=== PATIENT | male | born 1945 | race Caucasian/White ===

== ENCOUNTER 2017-08-15 13:06 | Inpatient (IN) | payer OTHER, MEDICARE ==
[~2017-08-15] VITALS: Ht 177.8 cm; Wt 79.4 kg
[~2017-08-15 13:06] MED LIST: ATACAND16 M1 PO; DOCUSATE SODIU100 M3 PO; MIRALAX119 GM PO; NEURONTIN800 M2 PO; OXYCODONE HCL5 M1 PO; OXYCONTIN10 M1 PO; PROCHLORPERAZIN10 MG PO; TAMIFLU75 M1 PO; ZITHROMAX250 M2 PO; ZYTIGA500 MG PO
[2017-08-15] MEDS ORDERED: ALLEGRA ALLERG180 M1 PO (13:19)
[2017-08-15] MEDS ORDERED: MULTIVITAMINS1 EAC9 PO (13:21)
[2017-08-15] MEDS ORDERED: MELATONIN3 M4 PO (13:22)
[2017-08-15] MEDS ORDERED: FISH OIL 1,2001 EACH PO (13:22)
[2017-08-15] MEDS ORDERED: OXYCODONE HCL5 M2 PO (13:24)
[2017-08-15] MEDS ORDERED: OXYCONTIN10 M1 PO (13:24)
[2017-08-15] MEDS ORDERED: ADVIL200 M1 PO (13:24)
[2017-08-15] MEDS ORDERED: ESCITALOPRAM OX10 MG PO (13:25)
[2017-08-15] MEDS ORDERED: PREDNISONE5 M1 PO (13:25)
--- NOTE | 2017-08-15 13:40 | ED GENERAL ADULT ---
See Addendum History of Present Illness General Chief Complaint: General Adult Stated Complaint: N/V Source: patient, family (daughter), old records, EMS Exam Limitations: no limitations Vital Signs & Intake/Output Vital Signs & Intake/Output Vital Signs Date Time Temp Pulse Resp B/P B/P Pulse O2 O2 Flow FiO2 Mean Ox Delivery Rate 08/15 1648 98.6 94 18 119/58 95 Nasal 2.0L Cannula 08/15 1603 100.4 08/15 1444 100.1 08/15 1310 100.1 101 17 172/79 96 Room Air Allergies Coded Allergies: Penicillins (UNKNOWN PER PT DAUGHTER 08/15/17) Reconcile Medications Abiraterone Acetate (Zytiga) 500 MG TABLET 1,000 MG PO QAM CANCER TREATMENT ( Reported) Candesartan Cilexetil (Atacand) 16 MG TABLET 1 TAB PO DAILY HTN (Reported) Escitalopram Oxalate 10 MG TABLET 1 TAB PO DAILY MENTAL HEALTH (Reported) Fexofenadine HCl (Mariam Allergy) 180 MG TABLET 1 TAB PO PRN ALLERGIES ( Reported) Fish Oil/Dha/Epa (Fish Oil 1,200 MG Fish Oil) 1,200 MG-144 MG-216 MG CAPSULE 1 CAP PO DAILY SUPPLEMENT (Reported) Gabapentin (Neurontin) 800 MG TABLET 1 TAB PO TID Neuropathy (Reported) Ibuprofen (Advil) 200 MG CAPSULE 2-4 CAP PO PRN PAIN (Reported) Melatonin 3 MG TABLET 1 TAB PO QPM SUPPLEMENT (Reported) Multiple Vitamin (Multivitamins) 1 EACH TABLET 1 TAB PO DAILY SUPPLEMENT ( Reported) Oxycodone HCl 5 MG CAPSULE 1-2 CAP PO Q4H PRN PAIN (Reported) Oxycodone HCl (Oxycontin) 10 MG TAB.ER.12H 1 TAB PO BID PAIN (Reported) Prednisone 5 MG TABLET 1 TAB PO BID STEROID (Reported) Triage Note: PT TO ED BY AMBULANCE WITH C/O INCREASING GEN WEAKNESS, N/V OVER THE PAST COUPLE DAYS. HX PROSTATE CA WITH METS TO THE BONES Triage Nurses Notes Reviewed? yes Onset: Abrupt Duration: day(s): (2-3), constant, continues in ED, getting worse Timing: single episode today Injury Environment: home Severity: moderate, severe Severity Numbers: 9 No Modifying Factors: none HPI: 72-year-old male past medical history of prostate cancer with metastasis to the bones, hypertension presents for evaluation of worsening generalized weakness hip pain and fever. Daughter reports symptoms have been gradually worsening over the past 3 days. Patient is usually able to walk and hold a conversation but over the past few hours has not been able to walk or get up due to pain in his bilateral hips and weakness and confusion. Daughter also reports that he has been very weak and lethargic falling asleep having conversations. Patient currently is only reporting pain in his bilateral hips. No trauma no recent falls he does have a history of metastasis to the bones in this area. No coughing congestion and rhinorrhea. Patient arrives via EMS on 2 L nasal cannula due to hypoxia. He has no history of lung disease. He denies shortness of breath or chest pain. Patient's daughter notes that patient had a blood transfusion 9 days ago and had a similar reaction to previous transfusions delayed several days after. (Howard Salvador) Past History Medical History Any Pertinent Medical History? see below for history Neurological: peripheral neuropathy EENT: NONE Cardiovascular: hypertension Respiratory: NONE Gastrointestinal: NONE Hepatic: NONE Renal: NONE Musculoskeletal: NONE Psychiatric: insomnia Endocrine: NONE Cancer(s): prostate cancer, metastatic bone ca History of MRSA: No History of VRE: No History of CDIFF: No Tetanus Vaccine: 05/05/13 Surgical History Surgical History: non-contributory Psychosocial History What is your primary language Amharic Family History Hx Contributory? No (Howard Salvador) Review of Systems Review of Systems Constitutional: Denies: fever, malaise, weakness. EENTM: Reports: no symptoms. Respiratory: Reports: no symptoms. Cardiovascular: Reports: no symptoms. GI: Denies: see HPI, abdominal pain, distention. Genitourinary: Reports: no symptoms. Musculoskeletal: Reports: see HPI, joint pain, muscle pain, muscle stiffness. Skin: Reports: no symptoms. Neurological/Psychological: Reports: weakness. Hematologic/Endocrine: Reports: no symptoms. Immunologic/Allergic: Reports: no symptoms. All Other Systems: Reviewed and Negative (Howard Salvador) Physical Exam Physical Exam General Appearance: well developed/nourished, no apparent distress, alert, awake , lethargic Head: atraumatic, normal appearance Eyes: Bilateral: normal appearance, PERRL, EOMI. Ears, Nose, Throat: normal pharynx, normal ENT inspection, hearing grossly normal Neck: normal inspection, supple, full range of motion Respiratory: chest non-tender, no respiratory distress, quiet respiration, decreased breath sounds Cardiovascular: regular rate/rhythm, normal peripheral pulses Peripheral Pulses: 2+ radial (R), 2+ radial (L) Gastrointestinal: normal bowel sounds, soft, no organomegaly, distention, tenderness (DIFFUSE ) Back: normal inspection, normal range of motion, no vertebral tenderness Extremities: normal inspection, no edema, limited range of motion (BILATERAL HIPS ), RANGE OF MOTION OF THE BILATERAL HIPS IS REDUCED SECONDARY TO PAIN. nO JOINT SWELLING NO ERYTHEMA OR ABRASIONS., NEUROVASCULAR SUPPLY IS INTACT THE BILATERAL UPPER AND LOWER EXTREMITIES Neurologic/Psych: no motor/sensory deficits, awake, alert, oriented x 3 Skin: intact, normal color, warm/dry Core Measures ACS in differential dx? No CVA/TIA Diagnosis: No Sepsis Present: No Sepsis Focused Exam Completed? No (Danny CRAVEN,Howard) Progress Differential Diagnoses I considered the following diagnoses in my evaluation of the patient: [Sepsis, pneumonia, PE, acute coronary syndrome, UTI, SBO, metastatic disease, spontaneous bacterial peritonitis, empyema, influenza, transfusion reaction, transfusion associated lung disease] Plan of Care: Orders Procedure Date/time Status Heart Healthy Diet 08/16 B Active Patient Data 08/15 1736 Active ED Holding Orders 08/15 1733 Active Admit to inpatient 08/15 1733 Active Vital Signs 08/15 1733 Active Code Status 08/15 1733 Active Add-on Test (ER Only) 08/15 1640 Active Add-on Test (ER Only) 08/15 1536 Active LDH (LACT ACID DEHYDROGENASE) 08/15 1330 Active B-TYPE NATRIURETIC PEP (BNP) 08/15 1330 Active BLOOD CULTURE 08/15 1328 Active Add-on Test (ER Only) 08/15 1324 Active RAPID VIRAL INFLUENZA A 08/15 1320 Complete EKG 08/15 1320 Active URINALYSIS 08/15 1319 Complete TROPONIN LEVEL 08/15 1319 Active LIPASE 08/15 1319 Active LACTIC ACID 08/15 1319 Active D-DIMER 08/15 1319 Complete COMPREHENSIVE METABOLIC PANEL 08/15 1319 Active CBC WITHOUT DIFFERENTIAL 08/15 1319 Complete Laboratory Tests 08/15/17 1524: Urinalysis MOD H, Urine Color YEL, Urine Clarity CLEAR, Urine pH 6.5, Ur Specific [place] 1.020, Urine Protein 30 H, Urine Ketones NEG, Urine Nitrite NEG, Urine Bilirubin NEG, Urine Urobilinogen 1.0, Ur Leukocyte Esterase NEG, Ur Microscopic SEDIMENT EXAMINED, Urine RBC RARE, Urine WBC RARE, Ur Epithelial Cells RARE, Urine Mucus FEW, Urine Hemoglobin NEG, Urine Glucose NEG 08/15/17 1330: Anion Gap 9, Estimated GFR > 60, BUN/Creatinine Ratio 28.0 H, Glucose 121 H, Lactic Acid 2.0, Calcium 8.7, Total Bilirubin 1.4 H, AST 513 H, ALT 34, Alkaline Phosphatase 1475 H, Lactate Dehydrogenase Pending, Troponin I < 0.01, [place] Pept 677 H, Total Protein 6.1 L, Albumin 3.5, Globulin 2.6, Albumin/Globulin Ratio 1.3, Lipase 87, D-Dimer High Sensitivty 8633 H, CBC w Diff NO MAN DIFF REQ, RBC 3.03 L, MCV 93.0, MCH 31.0, MCHC 33.4, RDW 21.7 H, MPV 6.4 L, Gran % 67.1, Lymphocytes % 19.2 L, Monocytes % 12.4 H, Eosinophils % 0.9, Basophils % 0.4, Absolute Granulocytes 3.9, Absolute Lymphocytes 1.1 L, Absolute Monocytes 0.7 H, Absolute Eosinophils 0.1, Absolute Basophils 0 Microbiology 08/15 1340 BLOOD: Blood Culture - RECD 08/15 1329 NASOPHARYN: Influenza Virus A & B Rapid Smear - COMP 08/15 1329 BLOOD: Blood Culture - RECD Patient seen and evaluated. He has a history of prostate cancer with metastatic disease to the bones. He is coming in with weakness and lethargy and fever. On exam vital signs are stable however patient is requiring 2 L nasal cannula to maintain an oxygen saturation in the 90s. No history of previous lung disease. PE needs to be considered as well as TIA versus progression of cancer versus transfusion reaction. We'll check basic blood work including blood cultures EKG chest x-ray. Patient will be medicated with IV fluids and IV Tylenol. Dimer is significantly elevated to 8000. A CTA of the chest was ordered. Also check a CT scan of the abdomen and pelvis and a dry scan of the head. CT scan does not show any acute findings. It does appear to be progression of metastatic disease to the bones. No blood clots. Patient does seem to be feeling better after fluids and Tylenol. Patient is unable to walk currently due to weakness AND HIP PAIN. He'll be admitted to the hospital for further evaluation and to rule out TIA. He WILL REQUIRE MRI of the brain, echocardiogram, carotid Dopplers, oncology consult, IV pain control, PHYSICAL therapy, hospice consult, case management. Case discussed with Dr. Mcclelland he agrees. Diagnostic Imaging: Viewed by Me: Radiology Read, CT Scan. Discussed w/RAD: Radiology Read, CT Scan. Radiology Impression: PATIENT: CHIP NICE PRESENT AGE: 72 PATIENT ACCOUNT NO: [id number] : 46 LOCATION: [facility] ORDERING PHYSICIAN: Howard CRAVEN SERVICE DATE: 08/15/17 EXAM TYPE: CAT - CT HEAD WO IV CONTRAST EXAMINATION: CT HEAD WITHOUT CONTRAST CLINICAL INFORMATION: 72-year-old man with confusion and weakness. Known osseous metastases from prostate cancer. COMPARISON: 04/21/2017 bone scan TECHNIQUE: Contiguous axial imaging was performed from the skull base to vertex without intravenous administration of contrast. DLP: 702 mGy-cm FINDINGS: No intracranial mass, hemorrhage, midline shift, or extra-axial collection is appreciated. The ventricles and sulcal spaces are diffusely prominent due to chronic volume loss. The paranasal sinuses are well aerated. No discrete lytic lesions are identified to correlate with known calvarial metastases. IMPRESSION: No acute intracranial pathology. DICTATED BY: Galina Cat MD DATE/TIME DICTATED: 08/15/171549 RECORD TESTER:LUÍS DATE/TIME TRANSCRIBED:08/15/171549 CONFIDENTIAL, DO NOT COPY WITHOUT APPROPRIATE AUTHORIZATION. <Electronically signed in Other Vendor System> SIGNED BY: Galina Cat MD 08/15/17 155, PATIENT: CHIP NICE PRESENT AGE: 72 PATIENT ACCOUNT NO: [id number] : 46 LOCATION: [facility] ORDERING PHYSICIAN: Howard CRAVEN SERVICE DATE: 08/15/17 EXAM TYPE: CAT - CTA CHEST-PULMONARY EMBOLISM EXAMINATION: CT CHEST PE STUDY CLINICAL INFORMATION: Hypoxia. Weakness. Acute mental status changes. Evaluate for pulmonary embolism versus pneumonia. COMPARISON: CTA of the chest dated 07/06/2017. CTA of the chest dated 04/21/2017 , 01/04/2017. TECHNIQUE: Prior to contrast administration, localization images were obtained. After the administration of 95 mL of intravenous Optiray 320, multidetector CT volume acquisition of the chest was performed. 3-D postprocessing was performed with multiplanar reconstructions and MIP images obtained at the acquisition workstation under concurrent physician supervision. DLP: 1170.93 mGy-cm (this dose report includes CT scan of the abdomen and pelvis ). FINDINGS: Pulmonary arteries: The bolus timing on this study was acceptable for visualization of the pulmonary arterial tree. Evaluation is, however, limited due to stairstep artifact and beam hardening artifact throughout the pulmonary vessels related to the patient's arms. There are no definite intraluminal pulmonary arterial filling defects present to suggest pulmonary embolism in the main pulmonary artery, right and left main pulmonary artery, lobar and segmental branches. Lungs: Platelike atelectatic changes are seen in the left lower lobe, superior segment. Dependent atelectatic changes as seen in both lower lobes and in the dependent portion of the right upper lobe. There is a 4 mm solid noncalcified pulmonary nodule in the right upper lobe (series 2, image 131), unchanged dating back to 01/04/2017. No other significant pulmonary nodule or mass is seen. No pleural effusion or pneumothorax. The central airways are patent. Aorta and heart: The heart is normal in size. Ascending aortic aneurysm is again seen with maximal AP diameter of 4.5 cm at the level of the right main pulmonary artery, similar to the previous studies. Moderate coronary artery calcifications noted. There is no pericardial effusion Lymphatic structures: Multiple enlarged mediastinal lymph nodes are again seen, measuring up to 1.4 cm in the right upper paratracheal space, 1.7 cm in the right lower paratracheal space, and 1.7 cm in the subcarinal space. Similar findings were noted on the previous CT scan from 07/06/2017. On older CT scan from 01/04/2017, larger adenopathy was noted. There are also several bilateral hilar lymph nodes, measuring up to 0.9 cm in short axis, unchanged from most recent prior but decreased in size compared to 2017. No axillary adenopathy is seen. Upper abdomen: Please refer to separate CT scan of the abdomen and pelvis report. Bones: Diffuse sclerotic densities are seen throughout the axial and appendicular skeleton including the ribs and shoulders, progressive when compared to original exam from 01/04/2017 but unchanged compared to 07/06/2017. Superimposed degenerative disc disease and spurring is noted. No pathologic fracture seen. IMPRESSION: 1. No evidence of pulmonary embolism. 2. Scattered atelectatic changes in the lungs. 3. Stable 4 mm solid noncalcified nodule in the right upper lobe, unchanged from 01/04/2017, most consistent with a benign finding. Depending on patient's underlying risk factors, additional CT scan in 12 months can be performed for reassessment. 4. Ascending aortic aneurysm with maximal AP diameter of 4.5 cm. 5. Mediastinal adenopathy, unchanged from 2017 and decreased in prominence compared to 01/04/2017. Findings are of uncertain etiology and differential would include metastatic disease, lymphoproliferative disorder, and inflammatory disease. Close clinical correlation is requested. 6. Diffuse metastatic disease to the bony skeleton, consistent with metastatic prostate cancer. 7. Moderate coronary artery calcifications. DICTATED BY: Trudy Sales MD DATE/TIME DICTATED:08/15/171544 RECORD TESTER:LUÍS DATE/TIME TRANSCRIBED:08/15/171544 CONFIDENTIAL, DO NOT COPY WITHOUT APPROPRIATE AUTHORIZATION., PATIENT: CHIP NICE PRESENT AGE: 72 PATIENT ACCOUNT NO: [id number] : 46 LOCATION: [facility] ORDERING PHYSICIAN: Howard CRAVEN SERVICE DATE: 08/15/17 EXAM TYPE: CAT - CT ABD & PELVIS W IV CONTRAST EXAMINATION: CT ABDOMEN AND PELVIS WITH CONTRAST CLINICAL INFORMATION: Abdominal pain and distention. Fever. Presumptive diagnosis of worsening bone metastases, pathologic fracture, small bowel obstruction. COMPARISON: CT scan of the abdomen and pelvis dated 05/03/2017, 04/21/2017, and multiple older exams dating back to 05/29/2009. TECHNIQUE: Multidetector CT volumetric acquisition of the abdomen and pelvis was performed after the administration of 95 mL of intravenous Optiray 320. The data set was reformatted in the sagittal and coronal planes and reviewed on an independent workstation. DLP: 1170.93 mGy-cm (this dose report includes CTA of the chest). FINDINGS: LOWER CHEST: Please refer to separate CTA of the chest dictation. Atelectatic changes are seen in the lung bases bilaterally. Trace left-sided pleural effusion is seen. LIVER, GALLBLADDER, BILIARY TREE: Liver normal size and attenuation. No focal cystic or solid mass or intra-or extrahepatic ductal dilatation. Hepatic and portal veins patent. Gallbladder partially distended and within normal limits. PANCREAS: Diffusely mildly atrophic. No ductal dilatation, mass, or surrounding stranding. SPLEEN: Normal size and appearance. Splenic vein patent. ADRENAL GLANDS AND KIDNEYS: Adrenal glands normal. Kidneys bilaterally symmetric in size and function. No hydronephrosis, nephrolithiasis or perinephric stranding. Multiple bilateral renal masses are seen of varying sizes, consistent with cysts, similar to prior exams. No suspicious renal masses. URETERS AND BLADDER: Ureters decompressed and within normal limits. Bladder well distended and within normal limits. PELVIC ORGANS: The patient is status post prostatectomy. There is a coarse calcific density seen in the left side of the prostatectomy bed, unchanged dating back to 08/12/2016, possibly representing heterotopic calcification status post surgery. GASTROINTESTINAL TRACT: Normal. Small and large bowel loops decompressed. No evidence of bowel obstruction is seen Appendix in right lower quadrant normal. ABDOMINAL WALL: Small bilateral fat-containing direct inguinal hernias are seen. LYMPHOVASCULAR STRUCTURES: Abdominal aorta normal in caliber. No periaortic collections. Mild atherosclerotic calcifications of the abdominal aorta. No abdominal or pelvic adenopathy or free fluid collection. BONES: Diffuse sclerotic densities are seen throughout the lumbar spine and pelvis, progressive when compared to 04/21/2017, consistent with progressive metastatic disease. No compression deformity or acute fracture is seen. Multilevel moderate degenerative disc disease and facet arthropathy is seen throughout the lumbar spine. IMPRESSION: 1. No acute intra-abdominal or pelvic process seen. Specifically, no evidence of bowel obstruction is noted. 2. Diffuse sclerotic densities throughout the lumbar spine and pelvis, progressive when compared to 04/21/2017, consistent with progressive metastatic prostate cancer. No acute pathologic fracture is seen. 3. Other incidental findings include diffusely mildly atrophic pancreas, bilateral renal cysts, and small bilateral fat- containing direct inguinal hernias. DICTATED BY: Trudy Sales MD DATE/TIME DICTATED:08/15/171619 RECORD TESTER:LUÍS DATE/TIME TRANSCRIBED:1619 CXR Impression: PATIENT: CHIP NICE PRESENT AGE: 72 PATIENT ACCOUNT NO: [id number] : 46 LOCATION: [facility] ORDERING PHYSICIAN: Howard CRAVEN SERVICE DATE: 08/15/170182 EXAM TYPE: RAD - XRY-PORTABLE CHEST XRAY EXAMINATION: XR PORTABLE CHEST CLINICAL INFORMATION: Fever. Hypoxia. Acute mental status change. Presumptive diagnosis of pneumonia or CHF. COMPARISON: CTA of the chest dated 07/06/2017 chest x-ray dated 06/11/2011. TECHNIQUE: Portable AP semierect view of the chest was obtained. FINDINGS: The cardiomediastinal silhouette is within normal limits in size. Low lung volumes are seen with mild crowding of bronchovascular markings in the lung bases bilaterally. No focal consolidation, effusion or pneumothorax is seen. Degenerative changes as seen in the left glenohumeral joint. IMPRESSION: Low lung volumes with bibasilar crowding of bronchovascular lung markings. No focal consolidation or evidence of pulmonary edema. DICTATED BY: Trudy Sales MD DATE/TIME DICTATED:08/15/171499 RECORD TESTER:LUÍS DATE/TIME TRANSCRIBED:08/15/171499 CONFIDENTIAL, DO NOT COPY WITHOUT APPROPRIATE AUTHORIZATION. Initial ED EKG: normal sinus rhythm, no ST T wave changes Prior EKG: unchanged (Howard Salvador) Departure Departure Disposition: STILL A PATIENT Condition: Stable Clinical Impression Primary Impression: Prostate cancer metastatic to bone Secondary Impressions: TIA (transient ischemic attack) Qualifiers: Transient cerebral ischemia type: unspecified Qualified Code: G45.9 - Transient cerebral ischemic attack, unspecified Referrals: Raleigh STERN,Qamar Alvarado (PCP/Family) Departure Forms: Customer Survey General Discharge Information Admission Note Spoke With: Patricia STERN,[employer] Documentation of Exam: Documentation of any treatments & extenuating circumstances including Concerns Regarding Discharge (functional status, medication knowledge or non-compliance, living conditions, etc.) that warrant an admission rather than observation: [MRI of the brain, echocardiogram, carotid Dopplers, oncology consult, IV pain control, PHYSICAL therapy, hospice consult, case management] (Howard Salvador) PA/[employer]ER Co-Sign Statement Statement: ED Attending supervision documentation- [X] I saw and evaluated the patient. I have also reviewed all the pertinent lab results and diagnostic results. I agree with the findings and the plan of care as documented in the PA's/[employer]W T[employer]ER's documentation. [] I have reviewed the ED Record and agree with the PA's/[employer]ER's documentation. [] Additions or exceptions (if any) to the PAs/[employer] T[employer]ER's note and plan are summarized below: [] I've seen and examined the patient. He has progressive metastatic prostate CA. Now is having inability to ambulate. Status post altered mental status today. This has since improved but rasied concern for TIA. (Dayron PEREZ,Lino Faustin) Critical Care Note Critical Care Note Critical Care Time: non-applicable (Danny CRAVEN,Howrad)
[2017-08-15 13:46] LABS: ABSOLUTE BASOPHIL COUNT 0 /CUMM (0.0-0.2); ABSOLUTE EOSINOPHIL COUNT 0.1 /CUMM (0.0-0.7); ABSOLUTE GRANULOCYTE CT 3.9 /CUMM (1.4-6.5); ABSOLUTE LYMPH COUNT 1.1 /CUMM (1.2-3.4); ABSOLUTE MONOCYTE COUNT 0.7 /CUMM (0.10-0.60); BASOPHIL % 0.4 % (0.0-2.0); EOSINOPHIL % 0.9 % (0-5); GRANULOCYTE % 67.1 % (42.2-75.2); HEMATOCRIT 28.2 % (42-52); MEAN CORPUSCULAR HGB CONC 33.4 G/DL (33.0-37.0); MEAN PLATELET VOLUME 6.4 FL (7.4-10.4); PLATELET COUNT 173 /CUMM (130-400); RBC DISTRIBUTION WIDTH 21.7 % (11.5-14.5); RED BLOOD CELL CT 3.03 /CUMM (4.70-6.10); WHITE BLOOD CELL COUNT 5.8 /CUMM (4.8-10.8)
--- NOTE | 2017-08-15 15:05 | RADIOLOGY REPORT ---
EXAMINATION: XR PORTABLE CHEST CLINICAL INFORMATION: Fever. Hypoxia. Acute mental status change. Presumptive diagnosis of pneumonia or CHF. COMPARISON: CTA of the chest dated 07/06/2017 chest x-ray dated 06/11/2011. TECHNIQUE: Portable AP semierect view of the chest was obtained. FINDINGS: The cardiomediastinal silhouette is within normal limits in size. Low lung volumes are seen with mild crowding of bronchovascular markings in the lung bases bilaterally. No focal consolidation, effusion or pneumothorax is seen. Degenerative changes as seen in the left glenohumeral joint. IMPRESSION: Low lung volumes with bibasilar crowding of bronchovascular lung markings. No focal consolidation or evidence of pulmonary edema.
--- NOTE | 2017-08-15 15:55 | CT SCAN REPORT ---
EXAMINATION: CT HEAD WITHOUT CONTRAST CLINICAL INFORMATION: 72-year-old man with confusion and weakness. Known osseous metastases from prostate cancer. COMPARISON: 04/21/2017 bone scan TECHNIQUE: Contiguous axial imaging was performed from the skull base to vertex without intravenous administration of contrast. DLP: 702 mGy-cm FINDINGS: No intracranial mass, hemorrhage, midline shift, or extra-axial collection is appreciated. The ventricles and sulcal spaces are diffusely prominent due to chronic volume loss. The paranasal sinuses are well aerated. No discrete lytic lesions are identified to correlate with known calvarial metastases. IMPRESSION: No acute intracranial pathology.
--- NOTE | 2017-08-15 16:23 | CT SCAN REPORT ---
EXAMINATION: CT CHEST PE STUDY CLINICAL INFORMATION: Hypoxia. Weakness. Acute mental status changes. Evaluate for pulmonary embolism versus pneumonia. COMPARISON: CTA of the chest dated 07/06/2017. CTA of the chest dated 04/21/2017, 01/04/2017. TECHNIQUE: Prior to contrast administration, localization images were obtained. After the administration of 95 mL of intravenous Optiray 320, multidetector CT volume acquisition of the chest was performed. 3-D postprocessing was performed with multiplanar reconstructions and MIP images obtained at the acquisition workstation under concurrent physician supervision. DLP: 1170.93 mGy-cm (this dose report includes CT scan of the abdomen and pelvis). FINDINGS: Pulmonary arteries: The bolus timing on this study was acceptable for visualization of the pulmonary arterial tree. Evaluation is, however, limited due to stairstep artifact and beam hardening artifact throughout the pulmonary vessels related to the patient's arms. There are no definite intraluminal pulmonary arterial filling defects present to suggest pulmonary embolism in the main pulmonary artery, right and left main pulmonary artery, lobar and segmental branches. Lungs: Platelike atelectatic changes are seen in the left lower lobe, superior segment. Dependent atelectatic changes as seen in both lower lobes and in the dependent portion of the right upper lobe. There is a 4 mm solid noncalcified pulmonary nodule in the right upper lobe (series 2, image 131), unchanged dating back to 01/04/2017. No other significant pulmonary nodule or mass is seen. No pleural effusion or pneumothorax. The central airways are patent. Aorta and heart: The heart is normal in size. Ascending aortic aneurysm is again seen with maximal AP diameter of 4.5 cm at the level of the right main pulmonary artery, similar to the previous studies. Moderate coronary artery calcifications noted. There is no pericardial effusion Lymphatic structures: Multiple enlarged mediastinal lymph nodes are again seen, measuring up to 1.4 cm in the right upper paratracheal space, 1.7 cm in the right lower paratracheal space, and 1.7 cm in the subcarinal space. Similar findings were noted on the previous CT scan from 07/06/2017. On older CT scan from 01/04/2017, larger adenopathy was noted. There are also several bilateral hilar lymph nodes, measuring up to 0.9 cm in short axis, unchanged from most recent prior but decreased in size compared to 2017. No axillary adenopathy is seen. Upper abdomen: Please refer to separate CT scan of the abdomen and pelvis report. Bones: Diffuse sclerotic densities are seen throughout the axial and appendicular skeleton including the ribs and shoulders, progressive when compared to original exam from 01/04/2017 but unchanged compared to 07/06/2017. Superimposed degenerative disc disease and spurring is noted. No pathologic fracture seen. IMPRESSION: 1. No evidence of pulmonary embolism. 2. Scattered atelectatic changes in the lungs. 3. Stable 4 mm solid noncalcified nodule in the right upper lobe, unchanged from 01/04/2017, most consistent with a benign finding. Depending on patient's underlying risk factors, additional CT scan in 12 months can be performed for reassessment. 4. Ascending aortic aneurysm with maximal AP diameter of 4.5 cm. 5. Mediastinal adenopathy, unchanged from 07/06/2017 and decreased in prominence compared to 01/04/2017. Findings are of uncertain etiology and differential would include metastatic disease, lymphoproliferative disorder, and inflammatory disease. Close clinical correlation is requested. 6. Diffuse metastatic disease to the bony skeleton, consistent with metastatic prostate cancer. 7. Moderate coronary artery calcifications.
--- NOTE | 2017-08-15 16:45 | CT SCAN REPORT ---
EXAMINATION: CT ABDOMEN AND PELVIS WITH CONTRAST CLINICAL INFORMATION: Abdominal pain and distention. Fever. Presumptive diagnosis of worsening bone metastases, pathologic fracture, small bowel obstruction. COMPARISON: CT scan of the abdomen and pelvis dated 05/03/2017, 04/21/2017, and multiple older exams dating back to 05/29/2009. TECHNIQUE: Multidetector CT volumetric acquisition of the abdomen and pelvis was performed after the administration of 95 mL of intravenous Optiray 320. The data set was reformatted in the sagittal and coronal planes and reviewed on an independent workstation. DLP: 1170.93 mGy-cm (this dose report includes CTA of the chest). FINDINGS: LOWER CHEST: Please refer to separate CTA of the chest dictation. Atelectatic changes are seen in the lung bases bilaterally. Trace left-sided pleural effusion is seen. LIVER, GALLBLADDER, BILIARY TREE: Liver normal size and attenuation. No focal cystic or solid mass or intra-or extrahepatic ductal dilatation. Hepatic and portal veins patent. Gallbladder partially distended and within normal limits. PANCREAS: Diffusely mildly atrophic. No ductal dilatation, mass, or surrounding stranding. SPLEEN: Normal size and appearance. Splenic vein patent. ADRENAL GLANDS AND KIDNEYS: Adrenal glands normal. Kidneys bilaterally symmetric in size and function. No hydronephrosis, nephrolithiasis or perinephric stranding. Multiple bilateral renal masses are seen of varying sizes, consistent with cysts, similar to prior exams. No suspicious renal masses. URETERS AND BLADDER: Ureters decompressed and within normal limits. Bladder well distended and within normal limits. PELVIC ORGANS: The patient is status post prostatectomy. There is a coarse calcific density seen in the left side of the prostatectomy bed, unchanged dating back to 08/12/2016, possibly representing heterotopic calcification status post surgery. GASTROINTESTINAL TRACT: Normal. Small and large bowel loops decompressed. No evidence of bowel obstruction is seen Appendix in right lower quadrant normal. ABDOMINAL WALL: Small bilateral fat-containing direct inguinal hernias are seen. LYMPHOVASCULAR STRUCTURES: Abdominal aorta normal in caliber. No periaortic collections. Mild atherosclerotic calcifications of the abdominal aorta. No abdominal or pelvic adenopathy or free fluid collection. BONES: Diffuse sclerotic densities are seen throughout the lumbar spine and pelvis, progressive when compared to 04/21/2017, consistent with progressive metastatic disease. No compression deformity or acute fracture is seen. Multilevel moderate degenerative disc disease and facet arthropathy is seen throughout the lumbar spine. IMPRESSION: 1. No acute intra-abdominal or pelvic process seen. Specifically, no evidence of bowel obstruction is noted. 2. Diffuse sclerotic densities throughout the lumbar spine and pelvis, progressive when compared to 04/21/2017, consistent with progressive metastatic prostate cancer. No acute pathologic fracture is seen. 3. Other incidental findings include diffusely mildly atrophic pancreas, bilateral renal cysts, and small bilateral fat-containing direct inguinal hernias.
--- NOTE | 2017-08-15 17:48 | History & Physical ---
Odilia Moreno 08/15/17 1744: General Information and HPI History of Present Illness: Mr. Merlos is a 72 yo m with a PMH of Metastatic prostate cancer s/p radiation + chemotherapy, hormonal therapy q3 mos, HTN SIB on-call Oncologist for weakness , nausea and vomiting since yesterday. and daughter at bedside. reports yesterday patient was unable to walk due to complaints of joint pain and generalized weakness. His pain was 6/10 but is normally 3/10. He required more pain meds than usual and was taken his pain meds every 4 hours. She needed the assistance of their neighbor to help him get off the toilet today. Once prompted with the walker his gait was unsteady and had a shuffling type gait. Today around noon his children came to visit and noticed he was flushed and lethargic. His appetite and hydration has been poor. He had an episode of yellowish liquid vomit today. Approximately one week ago he had a blood transfusion and was very lethargic the days following. He endorses night sweats and subjective fever. He denies URI, SOB, palpitations, CP, parasthesias, numbness, tingling, urinary or bowel symptoms. Allergies/Medications Allergies: Coded Allergies: Penicillins (UNKNOWN PER PT DAUGHTER 08/15/17) Home Med list Abiraterone Acetate (Zytiga) 500 MG TABLET 1,000 MG PO QAM CANCER TREATMENT ( Reported) Candesartan Cilexetil (Atacand) 16 MG TABLET 1 TAB PO DAILY HTN (Reported) Escitalopram Oxalate 10 MG TABLET 1 TAB PO DAILY MENTAL HEALTH (Reported) Fexofenadine HCl (Mariam Allergy) 180 MG TABLET 1 TAB PO PRN ALLERGIES ( Reported) Fish Oil/Dha/Epa (Fish Oil 1,200 MG Fish Oil) 1,200 MG-144 MG-216 MG CAPSULE 1 CAP PO DAILY SUPPLEMENT (Reported) Gabapentin (Neurontin) 800 MG TABLET 1 TAB PO TID Neuropathy (Reported) Ibuprofen (Advil) 200 MG CAPSULE 2-4 CAP PO PRN PAIN (Reported) Melatonin 3 MG TABLET 1 TAB PO QPM SUPPLEMENT (Reported) Multiple Vitamin (Multivitamins) 1 EACH TABLET 1 TAB PO DAILY SUPPLEMENT ( Reported) Oxycodone HCl 5 MG CAPSULE 1-2 CAP PO Q4H PRN PAIN (Reported) Oxycodone HCl (Oxycontin) 10 MG TAB.ER.12H 1 TAB PO BID PAIN (Reported) Prednisone 5 MG TABLET 1 TAB PO BID STEROID (Reported) Past History Medical History Neurological: peripheral neuropathy EENT: NONE Cardiovascular: hypertension Respiratory: NONE Gastrointestinal: NONE Hepatic: NONE Renal: NONE Musculoskeletal: NONE Psychiatric: insomnia Endocrine: NONE Cancer(s): prostate cancer, metastatic bone ca History of MRSA: No History of VRE: No History of CDIFF: No Tetanus Vaccine: 05/05/13 Surgical History Surgical History: non-contributory Review of Systems Review of Systems Constitutional: Reports: see HPI. Exam & Diagnostic Data Last 24 Hrs of Vital Signs/I&O Vital Signs Date Time Temp Pulse Resp B/P B/P Pulse O2 O2 Flow FiO2 Mean Ox Delivery Rate 08/15 1648 98.6 94 18 119/58 95 Nasal 2.0L Cannula 08/15 1603 100.4 08/15 1444 100.1 08/15 1310 100.1 101 17 172/79 96 Room Air Intake & Output 08/15 1600 08/15 0800 08/15 0000 Intake Total Output Total Balance Patient 185 lb Weight Weight Reported by Patient Measurement Method Physical Exam General Appearance Alert, Oriented X3, Cooperative, No Acute Distress HEENT dry mucous membranes Cardiovascular 2/6 systolic murmur Lungs Clear to Auscultation, Normal Air Movement Abdomen Normal Bowel Sounds, Soft, No Tenderness Neurological Normal Speech, Normal Tone, Sensation Intact, Cranial Nerves 3-12 NL, RLE 2/5, LLE 3/5 motor strength Extremities Spinal tenderness on palpation Rectal Guiac Negative, Nl tone Last 24 Hrs of Labs/Lino: Laboratory Tests 08/15/17 1524: Urinalysis MOD H, Urine Color YEL, Urine Clarity CLEAR, Urine pH 6.5, Ur Specific [place] 1.020, Urine Protein 30 H, Urine Ketones NEG, Urine Nitrite NEG, Urine Bilirubin NEG, Urine Urobilinogen 1.0, Ur Leukocyte Esterase NEG, Ur Microscopic SEDIMENT EXAMINED, Urine RBC RARE, Urine WBC RARE, Ur Epithelial Cells RARE, Urine Mucus FEW, Urine Hemoglobin NEG, Urine Glucose NEG 08/15/17 1330: Anion Gap 9, Estimated GFR > 60, BUN/Creatinine Ratio 28.0 H, Glucose 121 H, Lactic Acid 2.0, Calcium 8.7, Total Bilirubin 1.4 H, AST 513 H, ALT 34, Alkaline Phosphatase 1475 H, Lactate Dehydrogenase Pending, Troponin I < 0.01, Pxj-B-Yzfefcqliku Pept 677 H, Total Protein 6.1 L, Albumin 3.5, Globulin 2.6, Albumin/Globulin Ratio 1.3, Lipase 87, D-Dimer High Sensitivty 8633 H, CBC w Diff NO MAN DIFF REQ, RBC 3.03 L, MCV 93.0, MCH 31.0, MCHC 33.4, RDW 21.7 H, MPV 6.4 L, Gran % 67.1, Lymphocytes % 19.2 L, Monocytes % 12.4 H, Eosinophils % 0.9, Basophils % 0.4, Absolute Granulocytes 3.9, Absolute Lymphocytes 1.1 L, Absolute Monocytes 0.7 H, Absolute Eosinophils 0.1, Absolute Basophils 0 Microbiology 08/15 1340 BLOOD: Blood Culture - RECD 08/15 1329 NASOPHARYN: Influenza Virus A & B Rapid Smear - COMP 08/15 1329 BLOOD: Blood Culture - RECD Diagnostic Data CXR Results FINDINGS: The cardiomediastinal silhouette is within normal limits in size. Low lung volumes are seen with mild crowding of bronchovascular markings in the lung bases bilaterally. No focal consolidation, effusion or pneumothorax is seen. Degenerative changes as seen in the left glenohumeral joint. IMPRESSION: Low lung volumes with bibasilar crowding of bronchovascular lung markings. No focal consolidation or evidence of pulmonary edema. Other Results CT ABD & PELVIS W IV CONTRAST IMPRESSION: 1. No acute intra-abdominal or pelvic process seen. Specifically, no evidence of bowel obstruction is noted. 2. Diffuse sclerotic densities throughout the lumbar spine and pelvis, progressive when compared to 04/21/2017, consistent with progressive metastatic prostate cancer. No acute pathologic fracture is seen. 3. Other incidental findings include diffusely mildly atrophic pancreas, bilateral renal cysts, and small bilateral fat-containing direct inguinal hernias. CTA CHEST-PULMONARY EMBOLISM IMPRESSION: 1. No evidence of pulmonary embolism. 2. Scattered atelectatic changes in the lungs. 3. Stable 4 mm solid noncalcified nodule in the right upper lobe, unchanged from 01/04/2017, most consistent with a benign finding. Depending on patient's underlying risk factors, additional CT scan in 12 months can be performed for reassessment. 4. Ascending aortic aneurysm with maximal AP diameter of 4.5 cm. 5. Mediastinal adenopathy, unchanged from 07/06/2017 and decreased in prominence compared to 01/04/2017. Findings are of uncertain etiology and differential would include metastatic disease, lymphoproliferative disorder, and inflammatory disease. Close clinical correlation is requested. 6. Diffuse metastatic disease to the bony skeleton, consistent with metastatic prostate cancer. 7. Moderate coronary artery calcifications. CT HEAD WO IV CONTRAST FINDINGS: No intracranial mass, hemorrhage, midline shift, or extra-axial collection is appreciated. The ventricles and sulcal spaces are diffusely prominent due to chronic volume loss. The paranasal sinuses are well aerated. No discrete lytic lesions are identified to correlate with known calvarial metastases. IMPRESSION: No acute intracranial pathology. Assessment/Plan Assessment: Mr. Merlos is a 72 yo m with a PMH of Metastatic prostate cancer s/p radiation + chemotherapy, HTN BIBA for nausea and vomiting since yesterday. 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 Adkins consult Diet: Regular, fluid restriction DVT ppx: sc Lovenox Code: DNR/DNI Core Measures/Misc (01/31) Acute Coronary Syndrome ACS Diagnosis: No Congestive Heart Failure Congestive Heart Failure Diagnosis No Cerebrovascular Accident CVA/TIA Diagnosis: No VTE (View Protocol) VTE Risk Factors Cancer/chemo/othr therapy No Mechanical VTE Prophylaxis d/t N/A MechProphylax Ordered No VTE Pharm Prophylaxis d/t NA PharmProphylax ordered Sepsis (View protocol) Sepsis Present: No Mustapha Linares MD 08/15/175: Assessment/Plan As Ranked By This Provider Problem List: 1. Nausea & vomiting 2. Metastatic bone cancer 3. Prostate cancer metastatic to bone Attending MD Review Statement Attending Statement Attending MD Statement: examined this patient, discuss w/resident/PA/CREOSOTING ENGINEER, agreed w/resident/PA/CREOSOTING ENGINEER, discussed with family, reviewed EMR data (avail) Attending Assessment/Plan: Mr. Merlos is a 72-year-old male with a history of prostatic cancer with metastasis status post radiation and hormonal therapy, hypertension comes in with complaints of weakness, low appetite for the last few days. Patient denies any bowel bladder incontinence, saddle anesthesia, has been slowly getting worsening generalized weakness, more so in the lower extremities. On examination - blood pressure initially was 172/79, patient was febrile at 100.1, heart rate of 101, saturating well on room air. Alert oriented x 3, in mild distress due to pain, cardiovascular examination unremarkable, bilateral equal air entry in both lungs, abdomen diffusely mildly tender in all quadrants, lower extremity weakness 2/5 in both extremities, upper extremities, sensory examination within normal limits. Assessment 1. Generalized weakness - patient has worsening weakness in the lower extremities as per the . There is low likelihood chance of cord compression considering the fact that patient does not have saddle anesthesia, rectal tone is intact, no bowel or bladder incontinence. Spoke to the on-call [place] radiologist about imaging findings from the CAT scan of the abdomen and pelvis to see if there is any suggestion of spinal cord compression - however it is not very clear but patient has very severe degenerative disease with no evidence of pathological fracture which makes it less likely concerning for a spinal cord compression, but patient does have severe foraminal Canal narrowing at different levels and his degenerative disease is currently the most likely contributing factor for his lower extremity worsening weakness 2. Metastatic prostate cancer - fu with Dr. Adkins - s/p radiation and hormonal therapy 3. Low appetite - nausea and vomiting 4. Fever - Tmax of 100.1 F 5. Elevated LDH and Alk phosphatase - Has been elevated from the past likely from the malignancy with bone mets Plan Admit to General medicine service. adequate pain control Anti-emetics. Physical therapy evaluation. Continue with IVF for gentle hydration Heme - Onc - Dr. Adkins to be informed Blood and urine cultures sent - hold off on any antibiotics for now Repeat labwork in the AM Lovenox for DVT prophylaxis Shana STERN,Patricia 08/15/17 3566: Resident Review Statement Resident Statement: examined this patient, discussed with international trade specialist, agreed with international trade specialist, discussed with family, reviewed EMR data (avail), discussed with nursing , discussed with case mgmt, reviewed images, amended to note Other Findings: Patient is a 72-year-old male with past medical history significant for metastatic prostate cancer (diagnosed 2002 f/b 45 rounds of radiotherapy followed by sacral cancer in 2009 underwent 15 rounds of radiotherapy f/b recurrence last year) now on hormone therapy every 3 months (follows ) , hypertension who presented to ER with progressive worsening of generalized weakness, decreased ambulation, decreased appetite and and episodes of lethargy. He started being lethargic for the past 1 week. On 05 August he had a transfusion followed by an episode of shortness of breath on Wednesday. He is continent with his urine and bowel movements. Yesterday he started experiencing more pain and started taking pain medications more frequently. He also had some facial flushing with mild elevation in temperatures. Vitals at admission T-max 100.4, heart rate 101, blood pressure 172/79 mmHg, saturating on 2 L of oxygen. Physical exam Alert oriented 3, HEENT PERRLA, moist mucous membranes, neck supple, heart sounds S1-S2 normal, lungs clear, abdomen nontender normal bowel sounds, lumbar spine tender to palpation, lower extremities 1-2+ on right extremity, rectal tone present. Neuro cranial nerves intact, Sensation is intact, strength 3 out of 5 on the right side and 4 out of 5 on the left side. Labs did show a white count of 5.8, H&H 9.4/28, sodium 131, potassium 4, chloride 96, bicarb 27, BUN/creatinine 14/0.5. Total bili 1.4, AST/ALT 513/34, ALP 1475, LDH 10,000 786, proBNP 677. Imaging with chest x-ray did show low lung volumes with crowding of bronchovascular markings, CT to rule out PE, atrophic pancreas, normal liver, signs of prostatectomy with coarse calcific density and diffuse sclerotic densities in the bone. Assessment This is a 72-year-old patient with progressive worsening of his metastatic prostate cancer on long-acting and breakthrough pain medications, hypertension presented with progressive worsening of his overall condition and new onset lethargy along with mild low-grade fevers. Labs are consistent with hyponatremia, chronically elevated LDH and ALP. Mild elevation in proBNP age related. EKG shows normal sinus rhythm with left axis deviation, mild nonspecific ST depressions. Plan Admit to general medicine floor Problem list 1. Progressive deconditioning secondary to metastatic prostate cancer 2. Acute onset lethargy in the setting of hyponatremia 3. Hypertension Progressive deconditioning secondary to metastatic prostate cancer Possibly secondary to underlying carcinoma. Making a final adjustments between pain medications and medication also helps. I have very low suspicion for cord compression -given intact rectal tone, intact sensations, being continent with urine and bowel movements. * Continue OxyContin 10 mg every 12 hours and oxycodone as needed * Consult Dr. Adkins * Physical therapy evaluation Acute onset lethargy in the setting of hyponatremia He had hypotonic hyponatremia with elevated urinary lites indicating SIADH. He is also on pain medications. Will try to cautiously medicate him with pain medications. * Fluid restriction for hyponatremia * Avoid benzos HTN Continue candesartan Metastatic cancer continue prednisone, zyrtiga Depression Continue Escitalopram DVT prophylaxis SC lovenox Code Status Full code
[2017-08-15 22:03] VITALS: BP 116/60
[2017-08-16 06:46] VITALS: BP 126/72
--- NOTE | 2017-08-16 07:15 | PN- Housestaff ---
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 Objective Last 24 Hrs of Vital Signs/I&O Vital Signs Date Time Temp Pulse Resp B/P B/P Pulse O2 O2 Flow FiO2 Mean Ox Delivery Rate 08/16 0646 98.1 111 20 126/72 97 Nasal 3.0L Cannula 08/16 0616 98.1 08/16 0451 99.2 08/15 2203 99.0 77 20 116/60 98 Nasal 3.0L Cannula 08/15 202 Nasal 2.0L Cannula 08/15 1833 Room Air 08/15 1648 98.6 94 18 119/58 95 Nasal 2.0L Cannula 08/15 1603 100.4 08/15 1444 100.1 08/15 1310 100.1 101 17 172/79 96 Room Air Intake & Output 08/16 0800 08/16 0000 08/15 1600 Intake Total 850 250 Output Total 2000 Balance -1151 250 Intake, IV 630 150 Intake, Oral 220 100 Output, Urine 2000 Patient 175 lb 185 lb Weight Weight Reported by Patient Reported by Patient Measurement Method Physical Exam General Appearance: Alert, Oriented X3, Cooperative, No Acute Distress Cardiovascular: 2/6 systolic murmur Lungs: Clear to Auscultation, Normal Air Movement Abdomen: Normal Bowel Sounds, Soft, No Tenderness Extremities: BL 1+ edema Current Medications: Current Medications Sig/Kanchan Start time Last Medication Dose Route Stop Time Status Admin Acetaminophen 650 MG Q6P PRN 08/15 2115 AC 08/16 PO 0451 Acetaminophen 0 .STK-MED ONE 08/15 1639 DC PO Acetaminophen 0 .STK-MED ONE 08/15 1445 DC IV Acetaminophen 1,000 MG ONCE ONE 08/15 1345 DC 08/15 N/A 1 UNIT IV 08/15 1359 1444 Diphenhydramine HCl 0 .STK-MED ONE 08/15 1716 DC .ROUTE Diphenhydramine HCl 50 MG ONCE ONE 08/15 1645 DC 08/15 IV 08/15 1646 1722 Enoxaparin Sodium 40 MG DAILY 08/16 1000 AC SC Escitalopram Oxalate 10 MG DAILY 08/16 1000 AC PO Fish Oil 1,050 MG DAILY 08/16 1000 AC PO Gabapentin 800 MG TID 08/16 003 AC 08/16 PO 0058 Ketorolac 0 .STK-MED ONE 08/15 1716 DC Tromethamine .ROUTE Ketorolac 15 MG ONCE ONE 08/15 1630 DC 08/15 Tromethamine IV 08/15 1631 1722 Losartan Potassium 50 MG DAILY 08/16 1000 AC PO Melatonin 3 MG QPM 08/16 2199 AC PO Multivitamins 1 TAB DAILY 08/16 1000 AC Therapeutic PO Oxycodone HCl 10 MG BID 08/15 2199 AC 08/15 PO 2118 Oxycodone HCl 5 MG Q6 PRN 08/15 2114 AC PO Prednisone 5 MG BID 08/16 003 AC 08/16 PO 0058 Sodium Chloride 1,000 ML Q13H 08/15 1845 DC 08/15 IV 08/16 0744 2051 Sodium Chloride 1,000 ML BOLUS ONE 08/15 1345 DC 08/15 IV 08/15 1444 1408 Last 24 Hrs of Lab/Lino Results Last 24 Hrs of Labs/Mics: Laboratory Tests 08/15/17 2235: Lactic Acid 1.8 08/15/17 1955: Lactic Acid 1.1 08/15/17 1524: Urinalysis MOD H, Urine Color YEL, Urine Clarity CLEAR, Urine pH 6.5, Ur Specific [place] 1.020, Urine Protein 30 H, Urine Ketones NEG, Urine Nitrite NEG, Urine Bilirubin NEG, Urine Urobilinogen 1.0, Ur Leukocyte Esterase NEG, Ur Microscopic SEDIMENT EXAMINED, Urine RBC RARE, Urine WBC RARE, Ur Epithelial Cells RARE, Urine Mucus FEW, Urine Hemoglobin NEG, Urine Glucose NEG 08/15/17 1524: Urine Osmolality 681, Ur Random Creatinine 97.6, Ur Random Sodium 141 H, Ur Random Potassium 85.0, Fraction Sodium Excret 0.6 08/15/17 1330: Anion Gap 9, Estimated GFR > 60, BUN/Creatinine Ratio 28.0 H, Glucose 121 H, Serum Osmolality 272 L, Lactic Acid 2.0, Calcium 8.7, Total Bilirubin 1.4 H, AST 513 H, ALT 34, Alkaline Phosphatase 1475 H, Lactate Dehydrogenase 01205 H , Troponin I < 0.01, Ocp-B-Pzvjghotdjm Pept 677 H, Total Protein 6.1 L, Albumin 3.5, Globulin 2.6, Albumin/Globulin Ratio 1.3, Lipase 87, D-Dimer High Sensitivty 8633 H, CBC w Diff NO MAN DIFF REQ, RBC 3.03 L, MCV 93.0, MCH 31.0, MCHC 33.4, RDW 21.7 H, MPV 6.4 L, Gran % 67.1, Lymphocytes % 19.2 L, Monocytes % 12.4 H, Eosinophils % 0.9, Basophils % 0.4, Absolute Granulocytes 3.9, Absolute Lymphocytes 1.1 L, Absolute Monocytes 0.7 H, Absolute Eosinophils 0.1, Absolute Basophils 0 Microbiology 08/15 1524 URINE ROUT: Urine Culture - RECD 08/15 1340 BLOOD: Blood Culture - RECD 08/15 1330 NASOPHARYN: Influenza Virus A & B Rapid Smear - COMP 08/15 1330 BLOOD: Blood Culture - RECD Assessment/Plan Assessment: Mr. Merlos is a 72 yo m with a PMH of Metastatic prostate cancer s/p radiation + chemotherapy, HTN BIBA for nausea and vomiting since yesterday. 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 Nausea & vomiting 2. Prostate cancer metastatic to bone Pain Ratin Pain Location: NA Pain Goal: Pain 4 or less Pain Plan: Oxycodone Tomorrow's Labs & Rationales: cortisol, hepatitis, BEP, CBC Emeka Negrete MD 08/16/17 1131: Attending MD Review Statement Attending Statement Attending MD Statement: examined this patient, discuss w/resident/PA/CAFETERIA ASSISTANT, agreed w/resident/PA/CAFETERIA ASSISTANT, discussed with family, reviewed EMR data (avail), discussed with nursing, discussed with case mgmt, amended to note Attending Assessment/Plan: Patient seen and examined. Daughter present at the bedside. Brought in for evaluation due to complaints of progressive weakness over the weekend and ongoing joint pains related to his metastatic disease. Patient feels that his main complaint is generalized weakness. He believes that his pain is at baseline. I did discuss with the patient and daughter that differentials include 1) an acute pathology such as infection however workup so far has been unrevealing. He did have a low-grade fever on presentation and this is still being worked up.2) another differential is progression of his malignancy. He did fail primary treatment for his prostate cancer and is currently receiving palliative treatment. His oncologist is currently on the case. 3) the last differential will be if his weakness is medication induced. His Zytiga is currently on hold as recommended by his oncologist. Patient reports similar experience in the past. Recommendations: -Monitor patient off his Zytiga -Following discussion with the patient and daughter, patient agrees to continue on his current home dose of analgesic therapy. We have however discussed with him that should his pain become intolerable we will increase his dose if needed, Patient and daughter are in agreement with this. -Physical therapy consultation for discharge planning. -We will monitor his response over the next 48 hours. Follow blood cultures. -Repeat CBCs and chemistry in 48 hours.
--- NOTE | 2017-08-16 07:18 | Cons- Oncology ---
General Information and HPI Consulting Request Date of Consult: 08/16/17 Requested By: Mustapha Linares MD History of Present Illness: The 72-year-old gentleman well-known to me with advanced prostate cancer now admitted with diffuse bone pain, global weakness and low-grade fevers. Patient is currently being treated with Zytiga/prednisone/leuprolide. When last checked , his PSA was declining. Patient denies sensory loss, loss of sphincter control or other focal neurologic deficit. Allergies/Medications Allergies: Coded Allergies: Penicillins (UNKNOWN PER PT DAUGHTER 08/15/17) Home Med List: Abiraterone Acetate (Zytiga) 500 MG TABLET 1,000 MG PO QAM CANCER TREATMENT ( Reported) Candesartan Cilexetil (Atacand) 16 MG TABLET 1 TAB PO DAILY HTN (Reported) Escitalopram Oxalate 10 MG TABLET 1 TAB PO DAILY MENTAL HEALTH (Reported) Fexofenadine HCl (Mariam Allergy) 180 MG TABLET 1 TAB PO PRN ALLERGIES ( Reported) Fish Oil/Dha/Epa (Fish Oil 1,200 MG Fish Oil) 1,200 MG-144 MG-216 MG CAPSULE 1 CAP PO DAILY SUPPLEMENT (Reported) Gabapentin (Neurontin) 800 MG TABLET 1 TAB PO TID Neuropathy (Reported) Ibuprofen (Advil) 200 MG CAPSULE 2-4 CAP PO PRN PAIN (Reported) Melatonin 3 MG TABLET 1 TAB PO QPM SUPPLEMENT (Reported) Multiple Vitamin (Multivitamins) 1 EACH TABLET 1 TAB PO DAILY SUPPLEMENT ( Reported) Oxycodone HCl 5 MG CAPSULE 1-2 CAP PO Q4H PRN PAIN (Reported) Oxycodone HCl (Oxycontin) 10 MG TAB.ER.12H 1 TAB PO BID PAIN (Reported) Prednisone 5 MG TABLET 1 TAB PO BID STEROID (Reported) Current Medications: Current Medications Sig/Kanchan Start time Last Medication Dose Route Stop Time Status Admin Acetaminophen 650 MG Q6P PRN 08/15 2115 AC 08/16 PO 0451 Acetaminophen 0 .STK-MED ONE 08/15 1639 DC PO Acetaminophen 0 .STK-MED ONE 08/15 1445 DC IV Acetaminophen 1,000 MG ONCE ONE 08/15 1345 DC 08/15 N/A 1 UNIT IV 08/15 1359 1444 Diphenhydramine HCl 0 .STK-MED ONE 08/15 1716 DC .ROUTE Diphenhydramine HCl 50 MG ONCE ONE 08/15 1645 DC 08/15 IV 08/15 1646 1722 Enoxaparin Sodium 40 MG DAILY 08/16 1000 AC SC Escitalopram Oxalate 10 MG DAILY 08/16 1000 AC PO Fish Oil 1,050 MG DAILY 08/16 1000 AC PO Gabapentin 800 MG TID 08/16 0030 AC 08/16 PO 0058 Ketorolac 0 .STK-MED ONE 08/15 1716 DC Tromethamine .ROUTE Ketorolac 15 MG ONCE ONE 08/15 1630 DC 08/15 Tromethamine IV 08/15 1631 1722 Losartan Potassium 50 MG DAILY 08/16 1000 AC PO Melatonin 3 MG QPM 08/16 2200 AC PO Multivitamins 1 TAB DAILY 08/16 1000 AC Therapeutic PO Oxycodone HCl 10 MG BID 08/15 2200 AC 08/15 PO 2118 Oxycodone HCl 5 MG Q6 PRN 08/15 2115 AC PO Prednisone 5 MG BID 08/16 0030 AC 08/16 PO 0058 Sodium Chloride 1,000 ML Q13H 08/15 1845 AC 08/15 IV 08/16 0744 2051 Sodium Chloride 1,000 ML BOLUS ONE 08/15 1345 DC 08/15 IV 08/15 1444 1408 Review of Systems Review of Systems: Patient denies headaches or vertigo. He does describe lightheadedness. Patient denies shortness of breath cough chest pain or hemoptysis. Patient denies significant nausea vomiting abdominal pain or change in bowel habits. The patient denies dysuria hematuria. Patient denies rigors Past History Travel History Traveled to [place] past 21 day No Medical History Blood Transfusion Hx: Yes Neurological: peripheral neuropathy EENT: NONE Cardiovascular: hypertension Respiratory: NONE Gastrointestinal: NONE Hepatic: NONE Renal: NONE Musculoskeletal: NONE Psychiatric: insomnia Endocrine: NONE Cancer(s): prostate cancer, metastatic bone ca Surgical History Surgical History: non-contributory, LEFT HAND Psychosocial History Where Do You Live? Home Services at Home: None Smoking Status: Never Smoked Exam & Diagnostic Data Vital Signs and I&O Vital Signs Date Time Temp Pulse Resp B/P B/P Pulse O2 O2 Flow FiO2 Mean Ox Delivery Rate 08/16 645 98.1 111 20 126/72 97 Nasal 3.0L Cannula 08/17 615 98.1 08/16 450 99.2 08/15 2202 99.0 77 20 116/60 98 Nasal 3.0L Cannula 08/15 2024 Nasal 2.0L Cannula 08/15 1833 Room Air 08/15 1648 98.6 94 18 119/58 95 Nasal 2.0L Cannula 08/15 1603 100.4 08/15 1444 100.1 08/15 1310 100.1 101 17 172/79 96 Room Air Intake & Output 08/16 0800 08/16 0000 08/15 1600 Intake Total 850 250 Output Total 2000 Balance -1151 250 Intake, IV 630 150 Intake, Oral 220 100 Output, Urine 2000 Patient 175 lb 185 lb Weight Weight Reported by Patient Reported by Patient Measurement Method Gen.: in NAD ENT: Sclera anicteric Chest: Normal respiratory effort, clear breath sounds Cor: RRR, no extra sounds Abdomen: Soft, bowel sounds present, no tenderness, no rebound Extremities: Without clubbing, cyanosis, or asymmetric edema Neurology: Alert and oriented 3, diffuse weakness, no sensory level Skin: No rashes Last 48 Hours of Lab Results: Laboratory Tests 08/15 08/15 08/15 08/15 2235 1955 1524 1524 Chemistry Lactic Acid (0.7 - 2.1 mmol/L) 1.8 1.1 Urines Urinalysis MOD H Urine Color (YEL,AMB,STR) YEL Urine Clarity (CLEAR) CLEAR Urine pH (5.0 - 8.0) 6.5 Ur Specific [place] (1.001 - 1.035) 1.020 Urine Protein (NEG,<30 MG/DL) 30 H Urine Ketones (NEG) NEG Urine Nitrite (NEG) NEG Urine Bilirubin (NEG) NEG Urine Urobilinogen (0.1 - 1.0 EU/dl) 1.0 Ur Leukocyte Esterase (NEG) NEG Ur Microscopic SEDIMENT EXAMINED Urine RBC (0 - 5 /HPF) RARE Urine WBC (0 - 2 /HPF) RARE Ur Epithelial Cells (NONE,FEW) RARE Urine Mucus (FEW,NONE) FEW Urine Hemoglobin (NEG) NEG Urine Osmolality (300 - 1000 MOSM/KG) 681 Ur Random Creatinine (mg/dL) 97.6 Ur Random Sodium (30 - 90 mmol/L) 141 H Ur Random Potassium (mmol/L) 85.0 Fraction Sodium Excret (<1% %) 0.6 Urine Glucose (N MG/DL) NEG 08/15 1330 Chemistry Sodium (137 - 145 mmol/L) 131 L Potassium (3.5 - 5.1 mmol/L) 4.0 Chloride (98 - 107 mmol/L) 96 L Carbon Dioxide (22 - 30 mmol/L) 27 Anion Gap (5 - 16) 9 BUN (9 - 20 mg/dL) 14 Creatinine (0.7 - 1.2 mg/dL) 0.5 L Estimated GFR (>60 ml/min) > 60 BUN/Creatinine Ratio (7 - 25 %) 28.0 H Glucose (65 - 99 mg/dL) 121 H Serum Osmolality (285 - 295 MOSM/KG) 272 L Lactic Acid (0.7 - 2.1 mmol/L) 2.0 Calcium (8.4 - 10.2 mg/dL) 8.7 Total Bilirubin (0.2 - 1.3 mg/dL) 1.4 H AST (17 - 59 U/L) 513 H ALT (21 - 72 U/L) 34 Alkaline Phosphatase (< 127 U/L) 1475 H Lactate Dehydrogenase (313 - 618 U/L) 75698 H Troponin I (<0.11 ng/ml) < 0.01 [id number]-Dhgzsjubovw Pept (<125 pg/mL) 677 H Total Protein (6.3 - 8.2 g/dL) 6.1 L Albumin (3.5 - 5.0 g/dL) 3.5 Globulin (1.9 - 4.2 gm/dL) 2.6 Albumin/Globulin Ratio (1.1 - 2.2 %) 1.3 Lipase (23 - 300 U/L) 87 Coagulation D-Dimer High Sensitivty (0 - 243 ng/ml) 8633 H Hematology CBC w Diff NO MAN DIFF REQ WBC (4.8 - 10.8 /CUMM) 5.8 RBC (4.70 - 6.10 /CUMM) 3.03 L Hgb (14.0 - 18.0 G/DL) 9.4 L Hct (42 - 52 %) 28.2 L MCV (80.0 - 94.0 FL) 93.0 MCH (27.0 - 31.0 PG) 31.0 MCHC (33.0 - 37.0 G/DL) 33.4 RDW (11.5 - 14.5 %) 21.7 H Plt Count (130 - 400 /CUMM) 173 MPV (7.4 - 10.4 FL) 6.4 L Gran % (42.2 - 75.2 %) 67.1 Lymphocytes % (20.5 - 51.1 %) 19.2 L Monocytes % (1.7 - 9.3 %) 12.4 H Eosinophils % (0 - 5 %) 0.9 Basophils % (0.0 - 2.0 %) 0.4 Absolute Granulocytes (1.4 - 6.5 /CUMM) 3.9 Absolute Lymphocytes (1.2 - 3.4 /CUMM) 1.1 L Absolute Monocytes (0.10 - 0.60 /CUMM) 0.7 H Absolute Eosinophils (0.0 - 0.7 /CUMM) 0.1 Absolute Basophils (0.0 - 0.2 /CUMM) 0 Imaging/Other Studies: [id number] CT-chest, abdomen, pelvis-no visceral abnormalities, bone metastases Assessment/Plan Assessment: 1. Weakness-? Drug-related,? Secondary to malignancy. The patient is on Zytiga. Alkaline phosphatase has been elevated in the past, transaminitis is new Recommend- Hold Zytiga, continue prednisone 5 mg orally twice a day Check cortisol level Analgesia Serologies for hepatitis B and hepatitis C 2. Stage IV prostate cancer 3. Patient wishes no heroic intervention if his overall status declines Recommendations: .. Consult Acknowledgment - Thank you for your consult request.
[2017-08-16 08:50] LABS: ABSOLUTE BASOPHIL COUNT 0 /CUMM (0.0-0.2); ABSOLUTE EOSINOPHIL COUNT 0 /CUMM (0.0-0.7); ABSOLUTE GRANULOCYTE CT 3.8 /CUMM (1.4-6.5); ABSOLUTE LYMPH COUNT 0.9 /CUMM (1.2-3.4); ABSOLUTE MONOCYTE COUNT 0.7 /CUMM (0.10-0.60); BASOPHIL % 0.3 % (0.0-2.0); EOSINOPHIL % 0.5 % (0-5); GRANULOCYTE % 69.7 % (42.2-75.2); HEMATOCRIT 25.4 % (42-52); MEAN CORPUSCULAR HGB 31.5 PG (27.0-31.0); MEAN CORPUSCULAR HGB CONC 33.9 G/DL (33.0-37.0); MEAN CORPUSCULAR VOLUME 93.1 FL (80.0-94.0); MEAN PLATELET VOLUME 6.5 FL (7.4-10.4); PLATELET COUNT 136 /CUMM (130-400); RBC DISTRIBUTION WIDTH 22.9 % (11.5-14.5); RED BLOOD CELL CT 2.73 /CUMM (4.70-6.10); WHITE BLOOD CELL COUNT 5.4 /CUMM (4.8-10.8)
[2017-08-16 14:42] VITALS: BP 112/68
[2017-08-16 22:31] VITALS: BP 128/70
[2017-08-17 06:41] VITALS: BP 130/70
--- NOTE | 2017-08-17 06:45 | PN- Oncology ---
Subjective Subjective: Decreased pain, less weak 12 point review of systems otherwise unchanged Objective Vital Signs and I&Os Vital Signs Date Time Temp Pulse Resp B/P B/P Pulse O2 O2 Flow FiO2 Mean Ox Delivery Rate 08/17 0641 98.8 104 20 130/70 94 Room Air 04/ 2231 98.9 106 20 128/70 94 Room Air / 1630 99.8 08/16 1442 100.3 98 20 112/68 98 / 1420 100.8 04 1248 Room Air 08/16 0836 126/72 / 0800 2.0L / 0646 98.1 111 20 126/72 97 Nasal 3.0L Cannula Intake & Output 08/17 0808/17 0000 08/16 1600 08/16 0808/16 0000 08/15 1600 Intake Total 540 1200 850 250 Output Total 400 2000 Balance 140 1200 -1151 250 Intake, IV 300 600 630 150 Intake, Oral 240 600 220 100 Output, Urine 400 2000 Patient 175 lb 185 lb Weight Weight Reported by Patient Reported by Patient Measurement Method Gen.: in NAD ENT: Sclera anicteric Chest: Normal respiratory effort, decreased breath sounds Cor: RRR, no extra sounds Abdomen: Soft, bowel sounds present, no tenderness, no rebound Extremities: Without clubbing, cyanosis, or edema Neurology: Alert and oriented 3, easily able to lift legs against gravity Skin: No rashes Current Medications: Current Medications Sig/Kanchan Start time Last Medication Dose Route Stop Time Status Admin Acetaminophen 650 MG .STK-MED ONE 08/16 1419 DC PO 08/16 1420 Acetaminophen 650 MG Q6P PRN 08/15 2115 AC 08/16 PO 1420 Enoxaparin Sodium 40 MG DAILY 08/16 1000 AC 08/16 SC 0838 Escitalopram Oxalate 10 MG DAILY 08/16 1000 AC 08/16 PO 0837 Fish Oil 1,050 MG DAILY 08/16 1000 AC 08/16 PO 0836 Gabapentin 800 MG TID 08/16 0030 AC 08/16 PO 2153 Losartan Potassium 50 MG DAILY 08/16 1000 AC 08/16 PO 0836 Melatonin 3 MG QPM 08/16 2200 AC 08/16 PO 2153 Multivitamins 1 TAB DAILY 08/16 1000 AC 08/16 Therapeutic PO 0837 Oxycodone HCl 10 MG BID 08/15 220 AC 08/16 PO 2152 Oxycodone HCl 5 MG Q6 PRN 08/15 2115 AC 08/17 PO 0143 Patient Medication 1 ED ONE ONE 08/16 1045 DC 08/16 Teaching ED 08/16 1046 1047 Prednisone 5 MG BID 08/16 0030 AC 08/16 PO 2153 Sodium Chloride 1,000 ML Q13H 08/16 1430 DC 08/16 IV 08/17 0329 1451 Sodium Chloride 1,000 ML Q13H 08/15 1845 DC 08/15 IV 08/16 0744 2051 Results Last 24 Hours of Lab Results: Laboratory Tests 08/16 08/16 1605 0811 Chemistry Sodium (137 - 145 mmol/L) 133 L Potassium (3.5 - 5.1 mmol/L) 3.7 Chloride (98 - 107 mmol/L) 101 Carbon Dioxide (22 - 30 mmol/L) 24 Anion Gap (5 - 16) 8 BUN (9 - 20 mg/dL) 15 Creatinine (0.7 - 1.2 mg/dL) 0.5 L Estimated GFR (>60 ml/min) > 60 BUN/Creatinine Ratio (7 - 25 %) 30.0 H Total Bilirubin (0.2 - 1.3 mg/dL) 1.8 H Direct Bilirubin (< 0.4 mg/dL) 0.6 H AST (17 - 59 U/L) 268 H ALT (21 - 72 U/L) 33 Alkaline Phosphatase (< 127 U/L) 4487 H Total Protein (6.3 - 8.2 g/dL) 5.4 L Albumin (3.5 - 5.0 g/dL) 3.0 L Hematology CBC w Diff NO MAN DIFF REQ WBC (4.8 - 10.8 /CUMM) 5.4 RBC (4.70 - 6.10 /CUMM) 2.73 L Hgb (14.0 - 18.0 G/DL) 8.6 L Hct (42 - 52 %) 25.4 L MCV (80.0 - 94.0 FL) 93.1 MCH (27.0 - 31.0 PG) 31.5 H MCHC (33.0 - 37.0 G/DL) 33.9 RDW (11.5 - 14.5 %) 22.9 H Plt Count (130 - 400 /CUMM) 136 MPV (7.4 - 10.4 FL) 6.5 L Gran % (42.2 - 75.2 %) 69.7 Lymphocytes % (20.5 - 51.1 %) 15.8 L Monocytes % (1.7 - 9.3 %) 13.7 H Eosinophils % (0 - 5 %) 0.5 Basophils % (0.0 - 2.0 %) 0.3 Absolute Granulocytes (1.4 - 6.5 /CUMM) 3.8 Absolute Lymphocytes (1.2 - 3.4 /CUMM) 0.9 L Absolute Monocytes (0.10 - 0.60 /CUMM) 0.7 H Absolute Eosinophils (0.0 - 0.7 /CUMM) 0 Absolute Basophils (0.0 - 0.2 /CUMM) 0 Urines Urine Color (YEL,AMB,STR) LIGIA Urine Clarity (CLEAR) HAZY H Urine pH (5.0 - 8.0) 6.0 Ur Specific [place] (1.001 - 1.035) >= 1.030 Urine Protein (NEG,<30 MG/DL) 100 H Urine Ketones (NEG) TRACE H Urine Nitrite (NEG) NEG Urine Bilirubin (NEG) NEG Urine Urobilinogen (0.1 - 1.0 EU/dl) 1.0 Ur Leukocyte Esterase (NEG) NEG Ur Microscopic SEDIMENT EXAMINED Urine RBC (0 - 5 /HPF) 5-10 H Urine WBC (0 - 2 /HPF) RARE Ur Epithelial Cells (NONE,FEW) OCCAS Hyaline Casts (0/LPF) RARE H Granular Casts (NONE /LPF) FEW H Urine Mucus (FEW,NONE) MOD H Urine Hemoglobin (NEG) SMALL H Urine Glucose (N MG/DL) NEG Cultures negative thus far Assessment/Plan Assessment/Recommendations: 1. weakness-generally improved, pain diminished, no obvious infection, patient now off Zytiga Recommend- Await a.m. cortisol Hold Zytiga Increase ambulation Analgesia 2. Stage IV prostate cancer Hopefully can be discharged soon
--- NOTE | 2017-08-17 07:17 | PN- Housestaff ---
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 He denies nausea, vomiting, urinary or bowel symptoms Review of Systems Constitutional: Reports: see HPI. Objective Last 24 Hrs of Vital Signs/I&O Vital Signs Date Time Temp Pulse Resp B/P B/P Pulse O2 O2 Flow FiO2 Mean Ox Delivery Rate 08/17 0839 104 136/70 / 0641 98.8 104 20 130/70 94 Room Air 08/16 2231 98.9 106 20 128/70 94 Room Air 08/16 1630 99.8 08/16 1442 100.3 98 20 112/68 98 08/16 1420 100.8 08/16 1248 Room Air Intake & Output 08/17 1600 08/17 0800 08/17 0000 Intake Total 540 1200 Output Total 400 Balance 140 1200 Intake, IV 300 600 Intake, Oral 240 600 Output, Urine 400 Physical Exam General Appearance: Alert, Oriented X3, Cooperative, No Acute Distress Cardiovascular: 2/ systolic murmur Lungs: Clear to Auscultation, Normal Air Movement Abdomen: Normal Bowel Sounds, Soft, No Tenderness Current Medications: Current Medications Sig/Kanchan Start time Last Medication Dose Route Stop Time Status Admin Acetaminophen 650 MG .STK-MED ONE 08/16 1419 DC PO 08/16 1420 Acetaminophen 650 MG Q6P PRN 08/15 2115 AC 08/16 PO 1420 Enoxaparin Sodium 40 MG DAILY 08/16 1000 AC 08/17 SC 0840 Escitalopram Oxalate 10 MG DAILY 08/16 1000 AC 08/17 PO 0839 Fish Oil 1,050 MG DAILY 08/16 1000 AC 08/17 PO 0839 Gabapentin 800 MG TID 08/16 0030 AC 08/17 PO 0839 Losartan Potassium 50 MG DAILY 08/16 1000 AC 08/17 PO 0839 Melatonin 3 MG QPM 08/16 2200 AC 08/16 PO 2153 Multivitamins 1 TAB DAILY 08/16 1000 AC 08/17 Therapeutic PO 0840 Oxycodone HCl 10 MG BID 08/15 2200 AC 08/17 PO 0840 Oxycodone HCl 5 MG Q6 PRN 08/15 2114 AC 08/17 PO 1006 Prednisone 5 MG BID 08/16 0030 AC 08/17 PO 1006 Sodium Chloride 1,000 ML Q13H 08/16 1430 DC 08/16 IV 08/17 0329 1451 Last 24 Hrs of Lab/Lino Results Last 24 Hrs of Labs/Mics: Laboratory Tests 08/17/17 0710: Cortisol AM Sample Cancelled 08/17/17 0710: Anion Gap 7, Estimated GFR > 60, BUN/Creatinine Ratio 40.0 H, Cortisol AM Sample 15.3, CBC w Diff NO MAN DIFF REQ, RBC 2.59 L, MCV 93.2, MCH 31.8 H, MCHC 34.2, RDW 22.4 H, MPV 6.6 L, Gran % 65.2, Lymphocytes % 18.1 L, Monocytes % 15.8 H, Eosinophils % 0.6, Basophils % 0.3, Absolute Granulocytes 3.4, Absolute Lymphocytes 0.9 L, Absolute Monocytes 0.8 H, Absolute Eosinophils 0, Absolute Basophils 0, Hepatitis A IgM Ab NONREACTIVE, Hep Bs Antigen NONREACTIVE, Hep B Core IgM Ab Conf NONREACTIVE, Hepatitis C Antibody NONREACTIVE 08/16/17 1605: Urine Color LIGIA, Urine Clarity HAZY H, Urine pH 6.0, Ur Specific [place] >= 1.030, Urine Protein 100 H, Urine Ketones TRACE H, Urine Nitrite NEG, Urine Bilirubin NEG, Urine Urobilinogen 1.0, Ur Leukocyte Esterase NEG, Ur Microscopic SEDIMENT EXAMINED, Urine RBC 5-10 H, Urine WBC RARE, Ur Epithelial Cells OCCAS, Hyaline Casts RARE H, Granular Casts FEW H, Urine Mucus MOD H, Urine Hemoglobin SMALL H, Urine Glucose NEG Assessment/Plan Assessment: Mr. Merlos is a 72 yo m with a PMH of Metastatic prostate cancer s/p radiation + chemotherapy, HTN BIBA for nausea and vomiting since yesterday. 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 Prostate cancer metastatic to bone 2. 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 Resting comfortably in his chair. He reports that his pain is adequately controlled on his home regimen. Reports that current pain scale during exam was 3-4/10 in intensity even after mobilizing this morning. He reports however that he still lethargic. Reports that he still requires a walker for mobilizing I was able only to ambulate a short distance yesterday. He does not feel strong enough to go home. I did explain to the patient that symptoms are likely secondary to medication side effect and may take a while before he gets stronger. I did encourage mobilization and the nursing staff will be assisting him with this. he currently lives alone with his who recently underwent surgery and will not be able to provide adequate supervision for him at home. I have discussed with the patient that he will be reevaluated again tomorrow to determine if he is strong enough and safe enough to be discharged home. I have discussed the option of discharging to care home facility for short-term rehabilitation if a safe home discharge, will be arranged. He was obviously not enthusiastic about the option of going to a care home facility but understands that his in his current condition will not be able to provide adequate care for him at home. Sodium level continues to trend downwards. Check serum and urine osmolality to confirm presence of SIADH. Recommend initiating patient on a fluid restriction diet. Please confirm from patient's oncologist if he should continue on prednisone therapy since patient is no longer on Zytiga
--- NOTE | 2017-08-17 08:06 | Patient Discharge Instructions ---
Discharge Instructions General Discharge Information You were seen/treated for: Generalized weakness and pain You had these procedures: none Special Instructions: Follow up with Dr. Adkins upon discharge. Do not resume Zytiga until you discuss with oncologist Follow up with PCP upon discharge Check BEP for sodium in 1 week Diet Continue normal diet: Yes Activity Other activity limits: As tolerated Acute Coronary Syndrome Inclusion Criteria At DC or during hospital stay patient has or had the following: ACS DIAGNOSIS No Discharge Core Measures Meds if any: Prescribed or Continued at Discharge Meds if any: NOT Prescribed or Continued at Discharge Congestive Heart Failure Inclusion Criteria At DC or during hospital stay patient has or had the following: CHF DIAGNOSIS No Discharge Core Measures Meds if any: Prescribed or Continued at Discharge Meds if any: NOT Prescribed or Continued at Discharge Cerebrovascular accident Inclusion Criteria At DC or during hospital stay patient has or had the following: CVA/TIA Diagnosis No Discharge Core Measures Meds if any: Prescribed or Continued at Discharge Meds if any: NOT Prescribed or Continued at Discharge Venous thromboembolism Inclusion Criteria VTE Diagnosis No VTE Type NONE VTE Confirmed by (Test) NONE Discharge Core Measures - Per Current guidelines, there needs to be overlap - treatment for the first 5 days of Warfarin therapy. - If discharged on Warfarin prior to 5 days of - overlap therapy, the patient will need to be - assessed for post discharge needs including - *Post discharge parental anticoagulation - *Warfarin and/or parental anticoagulation education - *Follow up date to check INR post discharge At least 5 days overlap therapy as Inpatient No Meds if any: Prescribed or Continued at Discharge Note: Overlap Therapy is Warfarin and Anticoagulant Meds if any: NOT Prescribed or Continued at Discharge
[2017-08-17 08:40] LABS: ABSOLUTE BASOPHIL COUNT 0 /CUMM (0.0-0.2); ABSOLUTE EOSINOPHIL COUNT 0 /CUMM (0.0-0.7); ABSOLUTE GRANULOCYTE CT 3.4 /CUMM (1.4-6.5); ABSOLUTE LYMPH COUNT 0.9 /CUMM (1.2-3.4); ABSOLUTE MONOCYTE COUNT 0.8 /CUMM (0.10-0.60); BASOPHIL % 0.3 % (0.0-2.0); EOSINOPHIL % 0.6 % (0-5); GRANULOCYTE % 65.2 % (42.2-75.2); HEMATOCRIT 24.2 % (42-52); MEAN CORPUSCULAR HGB 31.8 PG (27.0-31.0); MEAN CORPUSCULAR HGB CONC 34.2 G/DL (33.0-37.0); MEAN CORPUSCULAR VOLUME 93.2 FL (80.0-94.0); MEAN PLATELET VOLUME 6.6 FL (7.4-10.4); PLATELET COUNT 121 /CUMM (130-400); RBC DISTRIBUTION WIDTH 22.4 % (11.5-14.5); RED BLOOD CELL CT 2.59 /CUMM (4.70-6.10); WHITE BLOOD CELL COUNT 5.2 /CUMM (4.8-10.8)
[2017-08-17 14:08] VITALS: BP 100/60
[2017-08-17 21:18] VITALS: BP 130/58
[2017-08-18 06:20] VITALS: BP 118/74
--- NOTE | 2017-08-18 07:23 | PN- Housestaff ---
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 He reports successful ambulation with physical therapy and that he has been doing learned bed exercises. He denies nausea, vomiting, urinary or bowel symptoms. Review of Systems Constitutional: Reports: see HPI. Objective Last 24 Hrs of Vital Signs/I&O Vital Signs Date Time Temp Pulse Resp B/P B/P Pulse O2 O2 Flow FiO2 Mean Ox Delivery Rate 08/18 1032 98.9 97 20 122/70 08/18 0804 122/70 08/18 0620 98.9 97 20 118/74 97 Room Air 08/17 2118 99.0 99 24 130/58 96 Room Air 08/17 1408 99.7 95 20 100/60 92 Room Air 08/17 1235 99.6 08/17 1152 Room Air 2.0L Intake & Output 08/18 1600 08/18 0800 08/18 0000 Intake Total 0 456 Output Total 200 Balance -200 456 Intake, IV 0 Intake, Oral 0 456 Number 0 Bowel Movements Output, Urine 200 Physical Exam General Appearance: Alert, Oriented X3, Cooperative, No Acute Distress Cardiovascular: 2/6 systolic murmur Lungs: Clear to Auscultation, Normal Air Movement Abdomen: Normal Bowel Sounds, Soft, No Tenderness Current Medications: Current Medications Sig/Kanchan Start time Last Medication Dose Route Stop Time Status Admin Acetaminophen 650 MG Q6P PRN 08/15 2115 AC 08/16 PO 1420 Enoxaparin Sodium 40 MG DAILY 08/16 1000 AC 08/18 SC 0806 Escitalopram Oxalate 10 MG DAILY 08/16 1000 AC 08/18 PO 0805 Fish Oil 1,050 MG DAILY 08/16 1000 AC 08/18 PO 1004 Gabapentin 800 MG TID 08/16 0030 AC 08/18 PO 0805 Losartan Potassium 50 MG DAILY 08/16 1000 AC 08/18 PO 0804 Melatonin 3 MG QPM 08/16 2200 AC 08/17 PO 2119 Multivitamins 1 TAB DAILY 08/16 1000 AC 08/18 Therapeutic PO 0803 Oxycodone HCl 10 MG BID 08/15 2200 AC 08/18 PO 0803 Oxycodone HCl 5 MG Q6 PRN 08/15 2115 08/17 PO 1006 Patient Medication 1 ED ONE ONE 08/18 1045 DC Teaching ED 08/18 1046 Patient Medication 1 ED ONE ONE 08/17 1545 DC 08/18 Teaching ED 08/17 1546 0650 Prednisone 5 MG BID 08/16 0030 AC 08/18 PO 0804 Last 24 Hrs of Lab/Lino Results Last 24 Hrs of Labs/Mics: Laboratory Tests 08/18/17 0724: Anion Gap 9, Estimated GFR > 60, BUN/Creatinine Ratio 52.5 H, Serum Osmolality 276 L 08/18/17 0555: Ur Random Creatinine 122.3, Ur Random Sodium < 5 L, Ur Random Potassium 58.9, Fraction Sodium Excret 0.0 Assessment/Plan Assessment: Mr. Merlos is a 72 yo m with a PMH of Metastatic prostate cancer s/p radiation + chemotherapy, HTN BIBA for nausea and vomiting since yesterday. 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 Prostate cancer metastatic to bone 2. Nausea & vomiting 3. General weakness Pain Ratin Pain Location: NA Pain Goal: Remain pain free Pain Plan: Oxycodone Tomorrow's Labs & Rationales: none
--- NOTE | 2017-08-18 07:24 | PN- Oncology ---
Subjective Subjective: Feeling better, increased ambulation 12 point review of systems otherwise unchanged Objective Vital Signs and I&Os Vital Signs Date Time Temp Pulse Resp B/P B/P Pulse O2 O2 Flow FiO2 Mean Ox Delivery Rate 08/19 619 98.9 97 20 118/74 97 Room Air 08/17 2117 99.0 99 24 130/58 96 Room Air 08/17 1408 99.7 95 20 100/60 92 Room Air 08/17 1235 99.6 08/17 1152 Room Air 2.0L 08/17 0839 104 136/70 Intake & Output 08/18 0808/18 0000 08/17 1600 08/17 0808/17 0000 08/16 1600 Intake Total 0 456 970 868 4252 Output Total 200 400 Balance -200 456 004 205 3757 Intake, IV 0 300 600 Intake, Oral 0 456 300 240 600 Number 0 Bowel Movements Output, Urine 200 400 Gen.: in NAD ENT: Sclera anicteric Chest: Normal respiratory effort, clear breath sounds Cor: RRR, no extra sounds Abdomen: Soft, bowel sounds present, no tenderness, Extremities: Without clubbing, cyanosis, or asymmetric edema Neurology: Alert and oriented 3, no gross deficit Current Medications: Current Medications Sig/Kanchan Start time Last Medication Dose Route Stop Time Status Admin Acetaminophen 650 MG Q6P PRN 08/15 2114 AC 08/16 PO 1420 Enoxaparin Sodium 40 MG DAILY 08/16 1000 AC 08/17 SC 0840 Escitalopram Oxalate 10 MG DAILY 08/16 1000 AC 08/17 PO 0839 Fish Oil 1,050 MG DAILY 08/16 1000 AC 08/17 PO 0839 Gabapentin 800 MG TID 08/16 0030 AC 08/17 PO 2119 Losartan Potassium 50 MG DAILY 08/16 1000 AC 08/17 PO 0839 Melatonin 3 MG QPM 08/16 2199 AC 08/17 PO 2119 Multivitamins 1 TAB DAILY 08/16 1000 AC 08/17 Therapeutic PO 0840 Oxycodone HCl 10 MG BID 08/15 220 AC 08/17 PO 2120 Oxycodone HCl 5 MG Q6 PRN 08/15 2114 AC 08/17 PO 1006 Patient Medication 1 ED ONE ONE 08/17 1545 DC 08/18 Teaching ED 08/17 1546 0650 Prednisone 5 MG BID 08/16 0030 AC 08/17 PO 2120 Results Last 24 Hours of Lab Results: Laboratory Tests 08/18 0555 Urines Ur Random Creatinine (mg/dL) 122.3 Ur Random Sodium (30 - 90 mmol/L) < 5 L Ur Random Potassium (mmol/L) 58.9 Fraction Sodium Excret (<1% %) 0.0 Assessment/Plan Assessment/Recommendations: 1. Weakness-continues to improve 2. Stage IV prostate cancer-continue prednisone 5 mg orally twice a day, continue to hold Zytiga Hopefully can be discharged to ECF soon, follow-up my office
--- NOTE | 2017-08-18 10:31 | Discharge Summary ---
Visit Information Visit Dates Admission Date: 08/15/17 Discharge Date: 08/18/17 Hospital Course Course Attending Physician: Emeka Negrete MD Primary Care Physician: [place] STERN,Qamar Alvarado Hospital Course: Patient is a 72-year-old male with past medical history significant for metastatic prostate cancer (diagnosed 2002 f/b 45 rounds of radiotherapy followed by sacral cancer in 2009 underwent 15 rounds of radiotherapy f/b recurrence last year) now on hormone therapy every 3 months (follows ) , hypertension who presented to ER with progressive worsening of generalized weakness, decreased ambulation, decreased appetite and and episodes of lethargy. Problem list 1. Progressive deconditioning secondary to metastatic prostate cancer 2. Acute onset lethargy in the setting of hyponatremia 3. Hypertension 4. Hyponatremia likely SIADH in the setting of stage 4 Prostate cancer Hospital course: Patient was admitted to the general medicine floor and evaluated by oncology. His weakness and deconditioning was likely secondary malignancy /Drug related (Zytiga, the drug he was on). He had a low-grade fever at admission however infectious workup was negative. The Zytiga was held on admission and patient was continued on prednisone. His labs revealed elevated alkaline phosphatase and transaminitis which was new. Hepatitis panel was checked and it was nonreactive. He also has hyponatremia which was likely secondary to SIADH(hypoosmolar hyponatremia in the setting of malignancy) .Patient was placed on a fluid restriction of 1000ml and labs were checked every day. Pain control for bony metastasis was achieved with home doses of oxycodone (10 mg twice a day) and OxyContin(5 mg every 6 when necessary). He seemed to tolerate these medications well. Patient's symptoms improved on day 2 and he was mobilized with physical therapy. Patient he was discharged to a short-term rehabilitation facility as his was also in rehabilitation status post knee replacement surgery and there was nobody to take care of him at home. Patient was instructed to follow up with oncology postdischarge to discuss about restarting [employer]/changing to a different medication. Complications: na Allergies: Coded Allergies: Penicillins (UNKNOWN PER PT DAUGHTER 08/15/17) Disposition Summary Disposition Principal Diagnosis: Progressive deconditioning secondary to metastatic prostate cancer Hypertension Hyponatremia likely SIADH in the setting of stage 4 Prostate cancer Additional Diagnosis: Acute onset lethargy in the setting of hyponatremia Discharge Disposition: SNF Discharge Instructions General Discharge Information Code Status: Do Not Resucitate/Intubat Patient's Diet: regular diet with 100 ml fluid restriction Patient's Activity: as tolerated Follow-Up Instructions/Appts: #1 please follow-up with the oncologist within 1 week of discharge. #2 please follow-up with your PCP within 1 week of discharge. #3 please continue fluid restriction of thousand mL for Low sodium. Medications at Discharge Discharge Medications: Stop taking the following medications: Abiraterone Acetate (Zytiga) 500 MG TABLET ORAL Every Morning Continue taking these medications: Candesartan Cilexetil (Atacand) 16 MG TABLET 1 Tablet ORAL DAILY Comments: Last Taken:08/18/17 Time: 8:00 AM SUBSTITUTED FOR COXAAR 50 MG WHILE IN HOSPITAL Gabapentin (Neurontin) 800 MG TABLET 1 Tablet ORAL THREE TIMES DAILY Comments: Last Taken:08/18/17 Time: 8:00 AM Fexofenadine HCl (Mariam Allergy) 180 MG TABLET 1 Tablet ORAL as needed for ALLERGIES Comments: DID NOT RECEIVE WHILE IN HOSPITAL Multiple Vitamin (Multivitamins) 1 EACH TABLET 1 Tablet ORAL DAILY Comments: Last Taken:08/18/17 Time: 8:00 AM Fish Oil/Dha/Epa (Fish Oil 1,200 MG Fish Oil) 1,200 MG-144 MG-216 MG CAPSULE 1 Capsule ORAL DAILY Comments: Last Taken:08/18/17 Time: 10:00 AM Melatonin (Melatonin) 3 MG TABLET 1 Tablet ORAL Every night Comments: Last Taken:08/17/17 Time: 9:00 PM Oxycodone HCl (Oxycodone HCl) 5 MG CAPSULE 1-2 Capsule ORAL Q4H as needed for PAIN Comments: Last Taken:08/17/17 Time: 10:00 AM Oxycodone HCl (Oxycontin) 10 MG TAB.ER.12H 1 Tablet ORAL TWICE DAILY Comments: Last Taken:08/18/17 Time: 8:00 AM Ibuprofen (Advil) 200 MG CAPSULE 2-4 Capsule ORAL as needed for PAIN Comments: DID NOT RECEIVE WHILE IN HOSPITAL Prednisone (Prednisone) 5 MG TABLET 1 Tablet ORAL TWICE DAILY Comments: Last Taken:08/18/17 Time: 8:00 AM Escitalopram Oxalate (Escitalopram Oxalate) 10 MG TABLET 1 Tablet ORAL DAILY Qty = 90 Comments: Last Taken:08/18/17 Time: 8:00 AM Copies To: Jed STERN,Kunal Rosenberg Attending MD Review Statement Documenting Attending: Emeka Negrete MD Other Findings: Discharged in stable medical condition
[2017-08-18 10:32] VITALS: BP 122/70
== END 2017-08-18 13:10 | DRG 543 ==
LOC: ERH 13:06 → ERHI 17:33 → 2NA 17:33 → ENRESERV 18:20 → ENTRNSPT 19:51 → 2NA 19:52 → EDTRNSPTSTS 20:01 → EDTRNSPT 20:01 → 2NA 20:17 → CMPTRNSPT 20:26 → 2NA 08-16 08:07 → ENPENDDIS 08-18 10:50 → 2NA 08-18 13:10
PROVIDERS: Dermatology; Emergency Medicine; Student in an Organized Health Care Education/Training Program
DX: C79.51 Secondary malignant neoplasm of bone (principal); E22.2 Syndrome of inappropriate secretion of antidiuretic hormone; G62.9 Polyneuropathy, unspecified; C61 Malignant neoplasm of prostate; E87.1 Hypo-osmolality and hyponatremia; I10 Essential (primary) hypertension; R53.1 Weakness; M89.8X0 Other specified disorders of bone, multiple sites; R74.0 Nonspecific elevation of levels of transaminase and lactic acid dehydrogenase [LDH]; T50.995A Adverse effect of other drugs, medicaments and biological substances, initial encounter; Z92.21 Personal history of antineoplastic chemotherapy; Z92.3 Personal history of irradiation; R26.81 Unsteadiness on feet; Z79.891 Long term (current) use of opiate analgesic; Z79.52 Long term (current) use of systemic steroids; G47.00 Insomnia, unspecified; Z88.0 Allergy status to penicillin
CPT/HCPCS: 2NAP; 84133; 84300; 36592; 71045; 74177; 81001; 82436; 82570; 87040; 87086; 87804; 87804-59; 93005; 93010; 96374; 96375; 97110-GO; 97116-GO; 97161-GP; 97530-GO; J0131; J1200; J1650; J1885; J7512

== ENCOUNTER 2017-09-24 20:33 | Inpatient (IN) | payer OTHER, MEDICARE ==
[~2017-09-24] VITALS: Ht 177.8 cm; Wt 78.0 kg
[~2017-09-24 20:33] MED LIST changes: +ADVIL200 M1 PO; +ALLEGRA ALLERG180 M1 PO; +ESCITALOPRAM OX10 MG PO; +FISH OIL 1,2001 EACH PO; +MELATONIN3 M4 PO; +MULTIVITAMINS1 EAC9 PO; +OXYCODONE HCL5 M2 PO; +PREDNISONE5 M1 PO
[2017-09-24 21:34] LABS: ABSOLUTE BASOPHIL COUNT 0 /CUMM (0.0-0.2); ABSOLUTE EOSINOPHIL COUNT 0.1 /CUMM (0.0-0.7); ABSOLUTE GRANULOCYTE CT 3.2 /CUMM (1.4-6.5); ABSOLUTE MONOCYTE COUNT 0.4 /CUMM (0.10-0.60); BASOPHIL % 0.5 % (0.0-2.0); EOSINOPHIL % 1.1 % (0-5); GRANULOCYTE % 67.7 % (42.2-75.2); MEAN CORPUSCULAR HGB CONC 32.4 G/DL (33.0-37.0); MEAN CORPUSCULAR VOLUME 95.5 FL (80.0-94.0); MEAN PLATELET VOLUME 6.2 FL (7.4-10.4); PLATELET COUNT 200 /CUMM (130-400); RBC DISTRIBUTION WIDTH 23.4 % (11.5-14.5); WHITE BLOOD CELL COUNT 4.7 /CUMM (4.8-10.8)
--- NOTE | 2017-09-24 22:04 | ED AMS/SEIZURE/WEAK/DIZZY ---
History of Present Illness General Chief Complaint: Fall Stated Complaint: "DIZZY, FELL, VOMITING, VISION BLURRY" Source: patient, family Exam Limitations: no limitations Vital Signs & Intake/Output Vital Signs & Intake/Output Vital Signs Date Time Temp Pulse Resp B/P B/P Pulse O2 O2 Flow FiO2 Mean Ox Delivery Rate 09/25 0205 96 Room Air 09/247 73 117/63 09/246 98.4 76 20 117/63 98 Room Air 09/24 2036 98.1 91 18 118/75 98 Room Air ED Intake and Output 09/25 0000 09/24 1200 Intake Total Output Total Balance Patient 168 lb Weight Weight Reported by Patient Measurement Method Allergies Coded Allergies: Penicillins (UNKNOWN PER PT DAUGHTER 08/15/17) Reconcile Medications Candesartan Cilexetil (Atacand) 16 MG TABLET 1 TAB PO DAILY HTN (Reported) Escitalopram Oxalate 10 MG TABLET 1 TAB PO DAILY MENTAL HEALTH (Reported) Fexofenadine HCl (Mariam Allergy) 180 MG TABLET 1 TAB PO PRN ALLERGIES ( Reported) Fish Oil/Dha/Epa (Fish Oil 1,200 MG Fish Oil) 1,200 MG-144 MG-216 MG CAPSULE 1 CAP PO DAILY SUPPLEMENT (Reported) Gabapentin (Neurontin) 800 MG TABLET 1 TAB PO TID Neuropathy (Reported) Ibuprofen (Advil) 200 MG CAPSULE 2-4 CAP PO PRN PAIN (Reported) Melatonin 3 MG TABLET 1 TAB PO QPM SUPPLEMENT (Reported) Multiple Vitamin (Multivitamins) 1 EACH TABLET 1 TAB PO DAILY SUPPLEMENT ( Reported) Oxycodone HCl 5 MG CAPSULE 1-2 CAP PO Q4H PRN PAIN (Reported) Oxycodone HCl (Oxycontin) 10 MG TAB.ER.12H 1 TAB PO BID PAIN (Reported) Prednisone 5 MG TABLET 1 TAB PO BID STEROID (Reported) Triage Note: PT TO ED C/O DIZZINESS, +N/V, BLUURY VISION SINCE 4 PM. SLEPT SOME THIS AFTERNOON, WOKE UP AND VOMITTED AT 1930. FELL AT 2014 WHEN HE TRIED TO GO TO THE BATHROOM BY HIMSELF. HAS SKIN TWEARS TO CHRISTIAN ARMS. PER FAMILY "HIS EYES ARE DARTING ALL OVER THE PLACE" HAS BLOOD TO LOWER LIP" PT IS ALERT AND ORIENTED TO PERSON, PLACE AND TIME. VSS. Triage Nurses Notes Reviewed? 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 Patient reports symptoms started around 4 PM today with intense dizziness. The dizziness was associated with nausea and vomiting. The dizziness is present constantly and worsens with head movement. He states there is no chest pain or shortness of breath. He did vomit multiple times. He reports that he attempted to take a nap to feel better reports that when he got up he felt so dizzy that he fell over landing on the front of his head.there is no loss of consciousness. No blood thinners. Family also reports that his eyes had been darting uncontrollably. He denies one-sided weakness chest pain shortness of breath abdominal pain melena or bright red blood per rectum hemoptysis or lower extremity edema. He has required transfusions in the past. (Howard Salvador) Past History Travel History Traveled to [place] past 21 day No Medical History Any Pertinent Medical History? see below for history Neurological: peripheral neuropathy EENT: NONE Cardiovascular: hypertension Respiratory: NONE Gastrointestinal: NONE Hepatic: NONE Renal: NONE Musculoskeletal: NONE Psychiatric: insomnia Endocrine: NONE Cancer(s): prostate cancer, metastatic bone ca History of MRSA: No History of VRE: No History of CDIFF: No Influenza Vaccine: 02/15/17 Tetanus Vaccine: 05/05/13 Surgical History Surgical History: non-contributory, LEFT HAND Psychosocial History Who do you live with Spouse Services at Home None What is your primary language Cuban Tobacco Use: Never used Family History Hx Contributory? No (Howard Salvador) Review of Systems Review of Systems Constitutional: Reports: no symptoms. EENTM: Reports: no symptoms. Respiratory: Reports: no symptoms. Cardiovascular: Reports: no symptoms. GI: Reports: see HPI, vomiting. Genitourinary: Reports: no symptoms. Musculoskeletal: Reports: no symptoms. Skin: Reports: no symptoms. Neurological/Psychological: Reports: see HPI (dizzy, lightheaded). Hematologic/Endocrine: Reports: no symptoms. Immunologic/Allergic: Reports: no symptoms. All Other Systems: Reviewed and Negative (Howard Salvador) Physical Exam Physical Exam General Appearance: well developed/nourished, no apparent distress, alert, awake Head: atraumatic, normal appearance Eyes: Bilateral: PERRL, EOMI, other (horizontal NYSTAGMUS ). Ears, Nose, Throat: normal pharynx, normal ENT inspection, hearing grossly normal, superficial laceration to the upper lip bleeding controlled Neck: normal inspection, supple, full range of motion Respiratory: normal breath sounds, chest non-tender Cardiovascular: regular rate/rhythm, normal peripheral pulses Peripheral Pulses: 2+ radial (R), 2+ radial (L) Gastrointestinal: normal bowel sounds, soft, non-tender, no organomegaly Rectal: normal rectal tone, heme negative stool Back: normal inspection, normal range of motion, no vertebral tenderness Extremities: normal range of motion, multiple superficial skin tears the bilateral upper extremities, patient is moving all extremities equally Neurologic/Psych: no motor/sensory deficits, awake, alert, oriented x 3, cw operator II- XII nml as tested, cerebellar testing intact normal finger to nose Skin: intact, normal color, warm/dry Lymphatic: no anterior cervical dean Core Measures ACS in differential dx? No CVA/TIA Diagnosis No NIH Stroke Scale (24 Hours) NIH Stroke Scale (24 Hours) Response Value Level of Consciousness alert 0 LOC Questions answers both correctly 0 LOC Commands obeys both correctly 0 Best Gaze normal 0 Visual Enriquez no visual loss 0 Facial Paresis normal 0 Motor Arm - Left no drift 0 Motor Arm - Right no drift 0 Motor Leg - Left no drift 0 Motor Leg - Right no drift 0 Limb Ataxia no ataxia 0 Sensory normal 0 Best Language no aphasia 0 Dysarthria normal articulation 0 Extinction and Inattention no neglect 0 Total 0 Date Last Known Well 09/24/17 Time Last Known Well 1600 Symptom start date 09/24/17 Symptom start time 1600 Swallow Evaluation Pass Swallow eval date 09/24/17 Swallow eval time 2340 Sepsis Present: No Sepsis Focused Exam Completed? No (Howard Salvador) Progress Differential Diagnosis: arrythmia, anemia, benign positional vertigo, CVA/stroke , dehydration, electrolyte imbalance, GI bleed, intracranial Hem., intracranial mass/tumor, migraine WILL, pneumonia, post-traumatic vertigo, subarachnoid Hem., UTI/pyelo, vertebrobasilar insuff, cerebellar stroke, peripheral vertigo Plan of Care: Orders Procedure Date/time Status Nothing by Mouth 09/25 B Active Saline Lock 09/25 208 Active Misc Message 09/25 208 Active ED Holding Orders 09/25 208 Active Admit to inpatient 09/25 208 Active Vital Signs 09/25 208 Active Code Status 09/25 208 Active BLOOD PRODUCT PICKUP 09/24 225 Active LEUKOCYTE POOR (PACKED CELLS) 09/24 2224 Active Add-on Test (ER Only) 09/24 2210 Active TYPE & SCREEN (NOT X-MATCH) 09/24 2210 Active PARTIAL THROMBOPLASTIN TIME 09/24 2112 Complete PROTHROMBIN TIME 09/24 2112 Complete TROPONIN LEVEL 09/24 2036 Complete LIPASE 09/24 2036 Complete HEPATIC FUNCTION PANEL 09/24 2036 Complete ETHANOL 09/24 2036 Complete CBC WITHOUT DIFFERENTIAL 09/24 2036 Complete BASIC METABOLIC PANEL 09/24 2036 Complete AMYLASE 09/24 2036 Complete EKG 09/24 2036 Active Current Medications Sig/Kanchan Start time Last Medication Dose Stop Time Status Admin Oxycodone/ 2 TAB Q4P PRN 09/24 2345 AC 09/25 Acetaminophen 0043 (Percocet) Laboratory Tests 09/24/172112: Anion Gap 8, Estimated GFR > 60, BUN/Creatinine Ratio 36.0 H, Glucose 106 H, Calcium 8.6, Total Bilirubin 1.1, Direct Bilirubin 0.1, AST 92 H, ALT 28, Alkaline Phosphatase 3737 H, Troponin I < 0.01, Total Protein 5.7 L, Albumin 3.4 L, Amylase 30, Lipase 85, PT 16.7 H, INR 1.53 H, APTT 26, CBC w Diff MAN DIFF ORDERED, RBC 2.20 L, MCV 95.5 H, MCH 31.0, MCHC 32.4 L, RDW 23.4 H, MPV 6.2 L, Gran % 67.7, Lymphocytes % 21.4, Monocytes % 9.3, Eosinophils % 1.1, Basophils % 0.5, Absolute Granulocytes 3.2, Segmented Neutrophils 64, Band Neutrophils 6 H, Absolute Lymphocytes 1.0 L, Lymphocytes 24, Monocytes 3, Absolute Monocytes 0.4, Absolute Eosinophils 0.1, Basophils 2, Absolute Basophils 0, Metamyelocytes 1, Nucleated RBCs 3 H, Platelet Estimate ADEQUATE, Polychromasia 1+, Hypochromic-Microcytic 2+, Basophilic Stippling RARE, Anisocytosis 2+, Serum Alcohol < 10.0 Patient seen and evaluated. He is here with dizziness nausea vomiting blurred vision. He has horizontal nystagmus on exam that is fatigable. With his constant dizziness and nystagmus cerebellar stroke needs to be considered. A CTA of the head and neck was ordered. He appears otherwise neurologically intact. There is no one-sided weakness no slurred speech. No chest pain or shortness of breath. Patient was medicated with Zofran and meclizine we'll check basic labs. Patient has a significant anemia 6.8. Heme-negative stool. He is been trending down over the past several months. he's required transfusions in the past. 2 units ordered. Remaining blood work does not show any acute findings. Waiting on CTA. Patient will likely require admission to the hospital due to symptomatic anemia and intractable vertigo. Asians as a Dr. Artis pending CTA Diagnostic Imaging: Viewed by Me: Radiology Read. Discussed w/RAD: Radiology Read. Radiology Impression: PATIENT: ALCIDES NICE PRESENT AGE: 72 PATIENT ACCOUNT NO: [id number] : 46 LOCATION: [facility] ORDERING PHYSICIAN: Jordan Artis MD SERVICE DATE: 09/24/17 EXAM TYPE: RAD - XRY-PORTABLE CHEST XRAY EXAMINATION: CHEST 1 VIEW CLINICAL INFORMATION: Chest pain. COMPARISON: 09/09/2017. TECHNIQUE: An AP view of the chest is provided. FINDINGS: The cardiac silhouette is not enlarged. The mediastinal and hilar contours are unremarkable. There are neither pleural effusions nor pneumothoraces. There are no consolidations. The osseous structures are unremarkable. IMPRESSION: No evidence for acute disease. DICTATED BY: Alcides Maher MD DATE/TIME DICTATED:09/24/172208 FEED RESEARCH AIDE: LUÍS DATE/TIME TRANSCRIBED:09/24/172208 CONFIDENTIAL, DO NOT COPY WITHOUT APPROPRIATE AUTHORIZATION. <Electronically signed in Other Vendor System> SIGNED BY: Alcides Maher MD 09/24/172212 Initial ED EKG: normal sinus rhythm, no ST T wave changes, BORDERLINE QTC Prior EKG: unchanged Hand-Off Endorsed To: Jordan Artis MD Endorsed Time: 2308 Pending: CT (Howard Salvador) Radiology Impression: PATIENT: ALCIDES NICE PRESENT AGE: 72 PATIENT ACCOUNT NO: [id number] : 46 LOCATION: [facility] ORDERING PHYSICIAN: Howard CRAVEN SERVICE DATE: 09/24/17 EXAM TYPE: CAT - CT HEAD ANGIOGRAM; CT NECK ANGIOGRAM EXAMINATION: CT ANGIOGRAM CAROTID - NECK AND BRAIN CLINICAL INFORMATION: Dizziness. Nystagmus. Vomiting. Acute onset.. COMPARISON: CT head 08/15/2017 TECHNIQUE: Noncontrast CT head performed. Test bolus sequences followed by intravenous administration 95 mL of Optiray 320. Helical imaging was performed in the axial plane from the mediastinum to the vertex. The data was processed at the echocardiography radiology technologist workstation for generation of MIP sequences. No three-dimensional volume rendered images were performed. NASCET criteria used for measurement of stenoses. FINDINGS: No acute intracranial abnormality. No infarct. No intracranial hemorrhage. No extra-axial collection. There is no mass effect. There is age-appropriate volume loss with prominence of the ventricles and sulci. There is calcification of the internal carotid arteries at the carotid artery siphon bilaterally. After intravenous contrast there is no abnormal enhancing lesion. The origins of the great vessels are normal. There are vascular wall calcification at the origin of the left brachiocephalic artery without stenosis. The origin of the right common carotid artery is normal. Small calcification at the origin of the right internal carotid artery at the carotid bifurcation without significant stenosis. There is vascular wall calcification of the internal carotid artery intracranially at the carotid artery siphon without stenosis or aneurysm. The origin of the left common carotid artery is normal. The carotid bifurcation is normal with no stenosis or calcification. There is vascular wall calcification of the internal carotid artery at the carotid artery siphon intracranially without stenosis or aneurysm. The origins of the vertebral arteries are normal. The vertebral arteries, basilar artery and their branches are normal. There is normal enhancement of the anterior cerebral, middle cerebral and posterior cerebral arteries without stenosis or occlusion. There is a small air-fluid level in the left sphenoid sinus. The soft tissues of the neck are normal. The lung apices are clear. There are shotty lymph nodes in the superior mediastinum. There is a borderline lymph node measuring 1 cm in diameter in the right paratracheal superior mediastinum. There are smaller lymph nodes at the AP window and the prevascular retrosternal space.. There is degenerative spondylosis of the cervical spine with multilevel disc height narrowing and endplate spurring and facet joint arthrosis. IMPRESSION: 1. No acute intracranial abnormality. There are regions of atherosclerotic vascular wall calcification of the internal carotid arteries at the carotid artery siphon and a small calcification of the right carotid bifurcation but there is no significant stenosis, no occlusion or aneurysm. 2. Small air-fluid level on the left sphenoid sinus DICTATED BY: Lorenzo Black MD DATE/TIME DICTATED:09/24/172340 FEED RESEARCH AIDE:LUÍS DATE/ TIME TRANSCRIBED:09/24/172340 CONFIDENTIAL, DO NOT COPY WITHOUT APPROPRIATE AUTHORIZATION. <Electronically signed in Other Vendor System> SIGNED BY: Lorenzo Black MD 09/24/17 [id number] (Jordan Artis MD) Departure Departure Disposition: STILL A PATIENT Clinical Impression Primary Impression: Symptomatic anemia Secondary Impressions: Vertigo Referrals: Conner Mead MD (PCP/Family) Departure Forms: Customer Survey General Discharge Information (Howard Salvador) Departure Condition: Stable Admission Note Spoke With: Conner Mead MD Documentation of Exam: Documentation of any treatments & extenuating circumstances including Concerns Regarding Discharge (functional status, medication knowledge or non-compliance, living conditions, etc.) that warrant an admission rather than observation: pt with symptomatic anemia as well as significant vertigo, in context of his prostate cancer, making it difficult to ambulate.... pt merits blood transfusion , meclizine, consider heme/onc and/or neuro consult in AM. PA/HORSE STUD MANAGER Co-Sign Statement Statement: ED Attending supervision documentation- [x] I saw and evaluated the patient. I have also reviewed all the pertinent lab results and diagnostic results. I agree with the findings and the plan of care as documented in the PA's/HORSE STUD MANAGER's documentation. 09/24/17, 23:10... pt with vertigo, likely peripheral, with weakness, likely due to low hematocrit... pt merits admission for further care, blood transfusions. [] I have reviewed the ED Record and agree with the PA's/HORSE STUD MANAGER's documentation. [] Additions or exceptions (if any) to the PAs/HORSE STUD MANAGER's note and plan are summarized below: [] (Jordan Artis MD) Critical Care Note Critical Care Note Critical Care Time: 30-74 min (Jordan Artis MD.)
--- NOTE | 2017-09-24 22:13 | RADIOLOGY REPORT ---
EXAMINATION: CHEST 1 VIEW CLINICAL INFORMATION: Chest pain. COMPARISON: 09/09/2017. TECHNIQUE: An AP view of the chest is provided. FINDINGS: The cardiac silhouette is not enlarged. The mediastinal and hilar contours are unremarkable. There are neither pleural effusions nor pneumothoraces. There are no consolidations. The osseous structures are unremarkable. IMPRESSION: No evidence for acute disease.
[2017-09-24 22:44] LABS: PT 16.7 SEC (9.4-12.5); PTT 26 SEC (25-37)
--- NOTE | 2017-09-24 23:58 | CT SCAN REPORT ---
EXAMINATION: CT ANGIOGRAM CAROTID - NECK AND BRAIN CLINICAL INFORMATION: Dizziness. Nystagmus. Vomiting. Acute onset.. COMPARISON: CT head 08/15/2017 TECHNIQUE: Noncontrast CT head performed. Test bolus sequences followed by intravenous administration 95 mL of Optiray 320. Helical imaging was performed in the axial plane from the mediastinum to the vertex. The data was processed at the fiber technologist workstation for generation of MIP sequences. No three-dimensional volume rendered images were performed. NASCET criteria used for measurement of stenoses. FINDINGS: No acute intracranial abnormality. No infarct. No intracranial hemorrhage. No extra-axial collection. There is no mass effect. There is age-appropriate volume loss with prominence of the ventricles and sulci. There is calcification of the internal carotid arteries at the carotid artery siphon bilaterally. After intravenous contrast there is no abnormal enhancing lesion. The origins of the great vessels are normal. There are vascular wall calcification at the origin of the left brachiocephalic artery without stenosis. The origin of the right common carotid artery is normal. Small calcification at the origin of the right internal carotid artery at the carotid bifurcation without significant stenosis. There is vascular wall calcification of the internal carotid artery intracranially at the carotid artery siphon without stenosis or aneurysm. The origin of the left common carotid artery is normal. The carotid bifurcation is normal with no stenosis or calcification. There is vascular wall calcification of the internal carotid artery at the carotid artery siphon intracranially without stenosis or aneurysm. The origins of the vertebral arteries are normal. The vertebral arteries, basilar artery and their branches are normal. There is normal enhancement of the anterior cerebral, middle cerebral and posterior cerebral arteries without stenosis or occlusion. There is a small air-fluid level in the left sphenoid sinus. The soft tissues of the neck are normal. The lung apices are clear. There are shotty lymph nodes in the superior mediastinum. There is a borderline lymph node measuring 1 cm in diameter in the right paratracheal superior mediastinum. There are smaller lymph nodes at the AP window and the prevascular retrosternal space.. There is degenerative spondylosis of the cervical spine with multilevel disc height narrowing and endplate spurring and facet joint arthrosis. IMPRESSION: 1. No acute intracranial abnormality. There are regions of atherosclerotic vascular wall calcification of the internal carotid arteries at the carotid artery siphon and a small calcification of the right carotid bifurcation but there is no significant stenosis, no occlusion or aneurysm. 2. Small air-fluid level on the left sphenoid sinus
[2017-09-25 04:16] VITALS: BP 114/58
--- NOTE | 2017-09-25 04:33 | History & Physical ---
Cece Martin MD 09/25/17 0432: General Information and HPI MD Statement: I have seen and personally examined CHIP NICE and documented this H&P. The patient is a 72 year old M who presented with a patient stated chief complaint of vertigo. 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 The patient states that he felt fine up until today when he was working in his yard and around 4:00 started to feel slightly dizzy. He attempted to read a book inside but he noticed that the words were blurry. He then states that he vomited, returned to bed and attempted to sleep only to vomit again. The second time that he attempted to use the bathroom he became so dizzy that he "did a face plant" into the floor causing him to have a bloody lip. He states that he did not lose consciousness but that the dizziness that he had got worse with head movement and standing up. At the time of these nausea spells, the patient's family noticed that his eyes were "jumping around" so they urged him to be taken to the hospital. This is the first time he ever experienced these symptoms. The patient denies any convulsions or any other seizure activity including loss of bowel or bladder function or tongue biting. The patient denies any recent illness, no new medication or ingestions. He has been on Zytiga for his prostate cancer. He denies any headache, lower extremity edema, chest pain, cough, shortness of breath, palpitations, loss of vision, hearing changes, abdominal pain, constipation, diarrhea, dysuria, melena/ hematochezia. The patient was last admitted to us in August of this year for lethargy and found to have hyponatremia. The patient has also had history of low blood count and has received transfusion before. No contributory surgical history. Patient has no family history of any similar occurrences. Patient denies any history of drinking, smoking, drug use. He has a history of penicillin allergy but does not know what effect it has. For his prostate cancer he is currently undergoing chemotherapy and received radiotherapy before. He is on prednisone 5 mg twice daily Allergies/Medications Allergies: Coded Allergies: Penicillins (UNKNOWN PER PT DAUGHTER 08/15/17) Home Med list Candesartan Cilexetil (Atacand) 16 MG TABLET 1 TAB PO DAILY HTN (Reported) Escitalopram Oxalate 10 MG TABLET 1 TAB PO DAILY MENTAL HEALTH (Reported) Fexofenadine HCl (Mariam Allergy) 180 MG TABLET 1 TAB PO PRN ALLERGIES ( Reported) Fish Oil/Dha/Epa (Fish Oil 1,200 MG Fish Oil) 1,200 MG-144 MG-216 MG CAPSULE 1 CAP PO DAILY SUPPLEMENT (Reported) Gabapentin (Neurontin) 800 MG TABLET 1 TAB PO TID Neuropathy (Reported) Ibuprofen (Advil) 200 MG CAPSULE 2-4 CAP PO PRN PAIN (Reported) Melatonin 3 MG TABLET 1 TAB PO QPM SUPPLEMENT (Reported) Multiple Vitamin (Multivitamins) 1 EACH TABLET 1 TAB PO DAILY SUPPLEMENT ( Reported) Oxycodone HCl 5 MG CAPSULE 1-2 CAP PO Q4H PRN PAIN (Reported) Oxycodone HCl (Oxycontin) 10 MG TAB.ER.12H 1 TAB PO BID PAIN (Reported) Prednisone 5 MG TABLET 1 TAB PO BID STEROID (Reported) Compliance With Home Meds: GOOD Past History Travel History Traveled to [place] past 21 day No Medical History Blood Transfusion Hx: Yes Neurological: peripheral neuropathy EENT: NONE Cardiovascular: hypertension Respiratory: NONE Gastrointestinal: NONE Hepatic: NONE Renal: NONE Musculoskeletal: NONE Psychiatric: insomnia Endocrine: NONE Blood Disorders: anemia Cancer(s): prostate cancer, metastatic bone ca 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 Psychosocial History Where do you live? Home Services at Home: None Smoking Status: Never Smoked Review of Systems Review of Systems Constitutional: Reports: weakness. EENTM: Reports: blurred vision. Cardiovascular: Reports: no symptoms. Respiratory: Reports: no symptoms. GI: Reports: nausea, vomiting. Genitourinary: Reports: no symptoms. Musculoskeletal: Reports: no symptoms. Skin: Reports: no symptoms. Neurological/Psychological: Reports: see HPI. Hematologic/Endocrine: Reports: no symptoms. Exam & Diagnostic Data Last 24 Hrs of Vital Signs/I&O Vital Signs Date Time Temp Pulse Resp B/P B/P Pulse O2 O2 Flow FiO2 Mean Ox Delivery Rate 09/25 0416 98.1 73 20 114/58 96 09/25 0205 96 Room Air 09/247 73 117/63 09/24 2225 98.4 76 20 117/63 98 Room Air 09/247 98.1 91 18 118/75 98 Room Air Intake & Output 09/25 1600 09/25 0800 09/25 0000 Intake Total 120 Output Total 250 Balance -130 Intake, Oral 120 Output, Urine 250 Patient 172 lb 168 lb Weight Weight Bed scale Reported by Patient Measurement Method Physical Exam General Appearance Alert, Oriented X3, Cooperative, No Acute Distress Skin No Rashes, No Breakdown, lip hematoma from fall Skin Temp/Moisture Exam: Warm/Dry Sepsis Skin Exam (color): Normal for Ethnicity HEENT Atraumatic, PERRLA, EOMI, Mucous Membr. moist/pink, horizontal nystagmus more pronounced when patient looks to the right Neck Supple, No JVD Cardiovascular Regular Rate, Normal S1, Normal S2, No Murmurs Lungs Clear to Auscultation, Normal Air Movement Abdomen Normal Bowel Sounds, Soft, No Tenderness, No Hepatospenomegaly, No Masses Neurological Normal Speech, Strength at 5/5 X4 Ext, Normal Tone, Sensation Intact, Cranial Nerves 3-12 NL, patient is experiencing no dizziness on sitting up after receiving meclizine Extremities No Clubbing, No Cyanosis, No Edema, No Tenderness/Swelling Vascular Normal Pulses, Pulses Symmetrical Last 24 Hrs of Labs/Lino: Laboratory Tests 09/25/17 0645: Anion Gap 8, Estimated GFR > 60, BUN/Creatinine Ratio 32.0 H, Iron Pending, TIBC Pending, % Saturation Pending, Ferritin Pending, Lactate Dehydrogenase Pending, CBC w Diff MAN DIFF ORDERED, RBC 2.38 L, MCV 94.7 H, MCH 31.3 H, MCHC 33.0, RDW 23.2 H, MPV 6.7 L, Gran % 62.3, Lymphocytes % 25.6, Monocytes % 10.4 H, Eosinophils % 1.3, Basophils % 0.4, Absolute Granulocytes 2.5, Segmented Neutrophils 55, Band Neutrophils 6 H, Absolute Lymphocytes 1.0 L, Lymphocytes 26, Monocytes 11 H, Absolute Monocytes 0.4, Eosinophils 1, Absolute Eosinophils 0.1, Absolute Basophils 0, Metamyelocytes 1, Nucleated RBCs 2 H, Platelet Estimate VERIFIED BY SMEAR 09/25/17 0600: Haptoglobin Pending 09/24/17 2113: Anion Gap 8, Estimated GFR > 60, BUN/Creatinine Ratio 36.0 H, Glucose 106 H, Calcium 8.6, Total Bilirubin 1.1, Direct Bilirubin 0.1, AST 92 H, ALT 28, Alkaline Phosphatase 3737 H, Troponin I < 0.01, Total Protein 5.7 L, Albumin 3.4 L, Amylase 30, Lipase 85, PT 16.7 H, INR 1.53 H, APTT 26, CBC w Diff MAN DIFF ORDERED, RBC 2.20 L, MCV 95.5 H, MCH 31.0, MCHC 32.4 L, RDW 23.4 H, MPV 6.2 L, Gran % 67.7, Lymphocytes % 21.4, Monocytes % 9.3, Eosinophils % 1.1, Basophils % 0.5, Absolute Granulocytes 3.2, Segmented Neutrophils 64, Band Neutrophils 6 H, Absolute Lymphocytes 1.0 L, Lymphocytes 24, Monocytes 3, Absolute Monocytes 0.4, Absolute Eosinophils 0.1, Basophils 2, Absolute Basophils 0, Metamyelocytes 1, Nucleated RBCs 3 H, Platelet Estimate ADEQUATE, Polychromasia 1+, Hypochromic-Microcytic 2+, Basophilic Stippling RARE, Anisocytosis 2+, Serum Alcohol < 10.0 Assessment/Plan Assessment: This is a 72-year-old male with past medical history significant for 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 Most concerning to the patient was his horizontal nystagmus. Vitals in the ED, afebrile, pulse rate 91, respiratory rate 18, blood pressure 118/75, 98% oxygen saturation on room air. Patient's white blood cell count found to be 4.7, hemoglobin 6.8, INR 1.53, AST elevated at 92, alkaline phosphatase 3737, of note patient has prostate cancer with bone metastases, negative chest x-ray, negative head/neck CTA except for air-fluid levels in the left sphenoid sinus. Patient received meclizine in the ED and subsequently his vertigo improved. Patient has no cerebellar signs and the rest of his neuro exam is normal. With this in mind, and the acute nature of symptoms, peripheral vertigo seems more likely than central, namely BPPV, vestibular neuronitis, Mni patient does have history of cancer we would like to rule out brain metastases most importantly or a CVA that would have to attack the posterior circulation. Plan -Continue meclizine and get a physical therapy consult for [place] maneuver. -Consider MRI with and without gadolinium if the above does not help, to rule out any kind of brain metastases or CVA that CT scan may not have picked up -Antinausea medication Zofran -Type and cross for transfusion of 1 unit of blood -Patient has been instructed to bring Baljeet to the hospital as we do not carry it but we will continue his prednisone. We have placed a call to Dr. Vinson instructional assistant as a courtesy. -Neurology consult if all else fails Full code DVT prophylaxis with only alps as patient has low blood count Regular diet As Ranked By This Provider Problem List: 1. Vertigo Core Measures/Misc (01/31) Acute Coronary Syndrome ACS Diagnosis: No Congestive Heart Failure Congestive Heart Failure Diagnosis No Cerebrovascular Accident CVA/TIA Diagnosis: No Date Last Known Well: 09/24/17 Time Last Known Well: 1600 Symptom Start Date: 09/24/17 Symptom Start Time: 1600 Swallow Evaluation Pass VTE (View Protocol) VTE Risk Factors Acute Medical Illness No Mechanical VTE Prophylaxis d/t N/A MechProphylax Ordered No VTE Pharm Prophylaxis d/t Bleeding (Active) Sepsis (View protocol) Sepsis Present: No Manny Miller MD 09/25/17 0434: Resident Review Statement Resident Statement: examined this patient, discussed with international marketing coordinator, agreed with international marketing coordinator Other Findings: This is a 72-year-old male with past medical history significant for hypertension, prostate cancer with metastasis to bone, chronic anemia requiring transfusion, who comes in for chief complaint of dizziness. Per patient, he was in his usual health today and was working in the yard. Ariybd 4 PM he came inside to do some reading and he found that his eyes would not focus on the words. He then proceeded to become very dizzy and vomited x2. Subsequently, he went to sleep and got up to use the bathroom but became profoundly dizzy again and fell flat onto his face. He denies any loss of consciousness, loss of bladder bowel control, confusion, or blurry vision. States that his dizziness seems to worsen with head movement. Patient's daughter and noted that his eyes were "going crazy"and so he decided to come to the hospital for further evaluation. Patient is currently on Zytiga and prednisone for his prostate cancer. He denies any other recent change in medication. He denies any recent infections, sore throat, coryza, cough, chest pain, palpitation, change in vision, abdominal pain, diarrhea, hematochezia, hematuria, or melena. Note the patient was recently admitted on August 2017 for lethargy and hyponatremia. Vitals: 98.1, 91, 18, 118/75, 98% on room air. CBC: White count 4.7 with 6 bands. Hemoglobin 6.8, hematocrit 21.0. INR 1.53 AST 92, alkaline phosphatase 3737, total protein 5.7, negative amylase and lipase Negative chest x-ray and head and neck CTA only showing air-fluid levels and left sphenoid sinus. Physical exam as above. But briefly, most prominent physical exam finding in this patient was his nystagmus. Even without any eye movement he had substantial vertigo. Nystagmus was prominent when he looks to his right in particular. Vertigo improved after administration of meclizine. Pupils are reactive and all other cranial nerves were within normal limits. Strength testing 5 out of 5 bilaterally, sensation normal. No dysdiadochokinesia and cerebellar signs intact. Given that patient has no other focal neurologic deficits, and only some postural instability with walking preserved, seems like he has peripheral vertigo. However, cannot entirely rule out central cause. The differential diagnosis in this patient could include BPPV, vestibular neuritis, metastasis to brain or ischemic CVA of posterior circulation. Plan: Vertigo: Patient stated his symptoms improved with the meclizine. CT of head and neck without any intracranial pathology. There is some air-fluid levels seen in his left sphenoid sinus. * Continue meclizine * Physical therapy consult for [place] * Zofran when necessary * MRI w and w/o JESUS Anemia: Patient's hemoglobin 6.8. * Type and cross * 1 unit PRBC Prostate cancer with metastases to bone: Patient is alkaline phosphatase 3737. This is likely secondary to his bony metastases. * Continue prednisone * Zytiga --Pt has been instructed to bring his Zytiga to the hospital so it can be administerd as we do no carry it in our formulary * Courtesy call to heme onc Depression: * Continue Lexapro Leukopenia: Patient has white count 4.7 with 6 bands. He is on chronic steroids. He has no obvious source of infection. * Continue to monitor Increased AST: AST 92. This could be secondary to his Zytiga FC alps ppx reg diet [place] [facility] 09/25/17 1406: Attending MD Review Statement Attending Statement Attending MD Statement: examined this patient, discuss w/resident/PA/SUPERVISOR PAINT [employer]LL[employer]OVERS, agreed w/resident/PA/SUPERVISOR [employer], discussed with family, reviewed EMR data (avail), discussed with nursing, discussed with case mgmt, reviewed images, amended to note Attending Assessment/Plan: Seen and examined independently This is a gentleman with end-stage prostate cancer with multiple metastases with recent worsening of his overall performance status with bone marrow involvement, anemia now with Sig BPV, no evidence of stroke or malignancy Severe anemia due to extensive BM mets from prostate ca No evidence of cva Prob mild sinusitis vs mastoiditis but bacterial infection less likely Depression REC COnt current rx Meclazine Pt not a good candidate for eply due to sig spinal mets Transfuse one more unit if next hemoglobin is less than 7.5 Increase steroid to 20 mg dialy Ok with alps and can use lovenox 40 for dvt prophylaxis as he is high risk for vte
[2017-09-25 08:26] LABS: ABSOLUTE BASOPHIL COUNT 0 /CUMM (0.0-0.2); ABSOLUTE EOSINOPHIL COUNT 0.1 /CUMM (0.0-0.7); ABSOLUTE GRANULOCYTE CT 2.5 /CUMM (1.4-6.5); ABSOLUTE MONOCYTE COUNT 0.4 /CUMM (0.10-0.60); BASOPHIL % 0.4 % (0.0-2.0); EOSINOPHIL % 1.3 % (0-5); GRANULOCYTE % 62.3 % (42.2-75.2); HEMATOCRIT 22.5 % (42-52); MEAN CORPUSCULAR HGB 31.3 PG (27.0-31.0); MEAN CORPUSCULAR VOLUME 94.7 FL (80.0-94.0); MEAN PLATELET VOLUME 6.7 FL (7.4-10.4); PLATELET COUNT 168 /CUMM (130-400); RBC DISTRIBUTION WIDTH 23.2 % (11.5-14.5); RED BLOOD CELL CT 2.38 /CUMM (4.70-6.10); WHITE BLOOD CELL COUNT 4.1 /CUMM (4.8-10.8)
--- NOTE | 2017-09-25 12:38 | MRI REPORT ---
EXAMINATION: MR BRAIN WITHOUT AND WITH CONTRAST CLINICAL INFORMATION: Dizziness. Nystagmus. Falls. Rule out stroke or metastatic disease. History of prostate cancer. COMPARISON: Nuclear bone scan report from 09/09/2017. CT from 09/24/2017. TECHNIQUE: Multiplanar, multisequence imaging of the brain was performed before and after the intravenous administration of 9 mL of Gadavist. FINDINGS: No diffusion abnormalities are identified to suggest an acute infarct. There is no evidence of hydrocephalus. No mass effect or midline shift is seen. Mild chronic white matter microangiopathic changes are noted. No extra-axial fluid collections are seen. The brainstem and cerebellum are normal. Generalized parenchymal volume loss is evident. On postcontrast imaging, there is no abnormal parenchymal enhancement. There is diffuse pachymeningeal enhancement around the cerebral hemispheres bilaterally which is fairly linear. No suspicious dural based soft tissue masses or nodularity is seen. The orbits and pituitary axis appear normal. The gradient refocused acquisition is normal. The craniovertebral junction and midline structures are normal. The major intracranial flow voids at the level of the [place] are preserved. The dural venous sinus flow voids are maintained. Moderate bilateral mastoid effusions are visible bilaterally. There is mild mucosal thickening in the paranasal sinuses. Diffusely abnormal low signal throughout the osseous structures, consistent with marrow signal replacement is presumably due to the patient's known history of widespread osseous metastatic disease, as reported on a nuclear bone scan from 09/09/2017. The posterior nasopharyngeal wall and roof appear normal. IMPRESSION: No acute infarct. Generalized parenchymal volume loss and mild chronic white matter microangiopathy. Diffuse marrow replacement, indicative for the patient's reported history of osseous metastatic disease. No abnormal parenchymal enhancement. Nonspecific holohemispheric linear dural enhancement bilaterally. Although no additional findings are present, idiopathic intracranial hypotension is a possibility and clinical correlation is recommended. Alternatively, findings may represent reactive dural enhancement in the setting of osseous calvarial metastatic disease. Dural metastatic disease cannot be ruled out, though is felt less likely, given absence of dural-based soft tissue masses and nodularity. If indicated, correlation with CSF cytology could be considered in follow-up. Nonspecific bilateral mastoid effusions. Normal appearance of the nasopharynx.
[2017-09-25 13:51] VITALS: BP 110/60
--- NOTE | 2017-09-25 14:53 | Cons- Neurology ---
General Information and HPI Consulting Request Date of Consult: 09/25/17 Requested By: [place] STERN,Conner Funes History of Present Illness: 72-year-old male presents yesterday with sudden onset of severe vertigo He recalls that he had just finishing doing outside yard activities including spraying [place] with Clorox He entered the house and sat down and suddenly noted that he became vertiginous This was persistent He walks to the bathroom but was significantly imbalanced He than had a few episodes of vomiting He then retired to bed and later awakened and again walked to the bathroom at this time he fell and cut his lip and injured left upper extremity There was no history of loss of consciousness or seizure There was no head trauma prior to the event There was no hearing change or tinnitus There was no history of diplopia He had no similar symptoms previously He did have a admission to hospital about a month ago for episode of lethargy; he was found to be hyponatremic Allergies/Medications Allergies: Coded Allergies: Penicillins (UNKNOWN PER PT DAUGHTER 08/15/17) Home Med List: Candesartan Cilexetil (Atacand) 16 MG TABLET 1 TAB PO DAILY HTN (Reported) Escitalopram Oxalate 10 MG TABLET 1 TAB PO DAILY MENTAL HEALTH (Reported) Fexofenadine HCl (Amriam Allergy) 180 MG TABLET 1 TAB PO PRN ALLERGIES ( Reported) Fish Oil/Dha/Epa (Fish Oil 1,200 MG Fish Oil) 1,200 MG-144 MG-216 MG CAPSULE 1 CAP PO DAILY SUPPLEMENT (Reported) Gabapentin (Neurontin) 800 MG TABLET 1 TAB PO TID Neuropathy (Reported) Ibuprofen (Advil) 200 MG CAPSULE 2-4 CAP PO PRN PAIN (Reported) Melatonin 3 MG TABLET 1 TAB PO QPM SUPPLEMENT (Reported) Multiple Vitamin (Multivitamins) 1 EACH TABLET 1 TAB PO DAILY SUPPLEMENT ( Reported) Oxycodone HCl 5 MG CAPSULE 1-2 CAP PO Q4H PRN PAIN (Reported) Oxycodone HCl (Oxycontin) 10 MG TAB.ER.12H 1 TAB PO BID PAIN (Reported) Prednisone 5 MG TABLET 1 TAB PO BID STEROID (Reported) Current Medications: Current Medications Sig/Kanchan Start time Last Medication Dose Route Stop Time Status Admin Acetaminophen 650 MG ONCE ONE 09/25 1215 DC 09/25 PO 09/25 1216 1304 Escitalopram Oxalate 10 MG DAILY 09/25 0900 AC 09/25 PO 0950 Gabapentin 600 MG Q8 09/25 06 AC 09/25 PO 1303 Meclizine HCl 12.5 MG TID 09/25 899 AC 09/25 PO 1303 Meclizine HCl 0 .STK-MED ONE 09/24 2149 DC PO Meclizine HCl 25 MG ONCE ONE 09/24 214 DC 09/24 PO 09/24 2145 215 Melatonin 3 MG QPM 09/25 2100 AC PO Ondansetron HCl 4 MG Q6P PRN 09/25 0700 AC IV Ondansetron HCl 0 .STK-MED ONE 09/24 2149 DC PO Ondansetron HCl 4 MG ONCE ONE 09/24 2144 DC 09/24 PO 09/24 Oxycodone HCl 10 MG BID 09/25 899 AC 09/25 PO 0951 Oxycodone HCl 5 MG Q4 PRN 09/25 0345 AC PO Oxycodone/ 0 .STK-MED ONE 09/25 0048 DC Acetaminophen PO Oxycodone/ 2 TAB Q4P PRN 09/24 2345 AC 09/25 Acetaminophen PO 0043 Prednisone 5 MG BID 09/25 09 AC 09/25 PO 0950 Review of Systems Review of Systems: No headache, no diplopia, no visual loss, no hearing change, no chest pains, no breathing difficulty, no loss of consciousness, no focal weakness, no paresthesias, no incontinence Patient has significant weight loss over the past few months Past History Travel History Traveled to [place] past 21 day No Medical History Blood Transfusion Hx: Yes Neurological: peripheral neuropathy EENT: NONE Cardiovascular: hypertension Respiratory: NONE Gastrointestinal: NONE Hepatic: NONE Renal: NONE Musculoskeletal: NONE Psychiatric: insomnia Endocrine: NONE Blood Disorders: anemia Cancer(s): prostate cancer, metastatic bone ca 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 Home Services at Home: None Smoking Status: Never Smoked ETOH Use: denies use Exam & Diagnostic Data Vital Signs and I&O Vital Signs Date Time Temp Pulse Resp B/P B/P Pulse O2 O2 Flow FiO2 Mean Ox Delivery Rate 09/25 1351 98.6 77 20 110/60 96 Room Air 09/25 0416 98.1 73 20 114/58 96 09/25 0205 96 Room Air 09/24 2226 73 117/63 09/24 2225 98.4 76 20 117/63 98 Room Air 09/24 2036 98.1 91 18 118/75 98 Room Air Intake & Output 09/25 1600 09/25 0800 09/25 0000 Intake Total 120 Output Total 250 Balance -130 Intake, Oral 120 Output, Urine 250 Patient 172 lb 168 lb Weight Weight Bed scale Reported by Patient Measurement Method Physical Exam: Family history his father had cancer and mother Alzheimer disease On exam he is comfortable Language function is fund of knowledge attention span concentration recall intact Heart sounds normal no carotid bruits distal pulses intact Pupils equal reactive fundi benign visual dudley intact no facial weakness or facial sensory loss palate tongue and shoulders intact hearing grossly intact bilaterally Nystagmus to the right Normal tone and strength upper and lower extremities Sensory examination intact to all modalities Deep tendon reflexes hypoactive throughout Coordination functions show intact finger-nose maneuver Attempted gait was not made since patient is still vertiginous, but truncal balance appears intact Last 48 Hours of Lab Results: Laboratory Tests 09/25 09/25 0645 0600 Chemistry Sodium (137 - 145 mmol/L) 139 Potassium (3.5 - 5.1 mmol/L) 4.2 Chloride (98 - 107 mmol/L) 102 Carbon Dioxide (22 - 30 mmol/L) 29 Anion Gap (5 - 16) 8 BUN (9 - 20 mg/dL) 16 Creatinine (0.7 - 1.2 mg/dL) 0.5 L Estimated GFR (>60 ml/min) > 60 BUN/Creatinine Ratio (7 - 25 %) 32.0 H Iron (49 - 181 ug/dL) 101 TIBC (261 - 462 ug/dL) 352 % Saturation (16 - 45 %) 28 Ferritin (17.9 - 464 ng/mL) 2140.0 H Lactate Dehydrogenase (313 - 618 U/L) 2446 H Hematology CBC w Diff MAN DIFF ORDERED WBC (4.8 - 10.8 /CUMM) 4.1 L RBC (4.70 - 6.10 /CUMM) 2.38 L Hgb (14.0 - 18.0 G/DL) 7.4 *L Hct (42 - 52 %) 22.5 L MCV (80.0 - 94.0 FL) 94.7 H MCH (27.0 - 31.0 PG) 31.3 H MCHC (33.0 - 37.0 G/DL) 33.0 RDW (11.5 - 14.5 %) 23.2 H Plt Count (130 - 400 /CUMM) 168 MPV (7.4 - 10.4 FL) 6.7 L Gran % (42.2 - 75.2 %) 62.3 Lymphocytes % (20.5 - 51.1 %) 25.6 Monocytes % (1.7 - 9.3 %) 10.4 H Eosinophils % (0 - 5 %) 1.3 Basophils % (0.0 - 2.0 %) 0.4 Absolute Granulocytes (1.4 - 6.5 /CUMM) 2.5 Segmented Neutrophils (42.2 - 75.2 %) 55 Band Neutrophils (0.0 - 5.0 %) 6 H Absolute Lymphocytes (1.2 - 3.4 /CUMM) 1.0 L Lymphocytes (20.5 - 51.1 %) 26 Monocytes (1.7 - 9.3 %) 11 H Absolute Monocytes (0.10 - 0.60 /CUMM) 0.4 Eosinophils (0 - 5.0 %) 1 Absolute Eosinophils (0.0 - 0.7 /CUMM) 0.1 Absolute Basophils (0.0 - 0.2 /CUMM) 0 Metamyelocytes (0.0 - 1.0 %) 1 Nucleated RBCs (0.0 - 0.0 /100WBC) 2 H Platelet Estimate (ADEQUATE) VERIFIED BY SMEAR Polychromasia 1+ Poikilocytosis 1+ Anisocytosis 2+ Ovalocytes 1+ Haptoglobin Pending 09/24 2112 Chemistry Sodium (137 - 145 mmol/L) 139 Potassium (3.5 - 5.1 mmol/L) 3.7 Chloride (98 - 107 mmol/L) 102 Carbon Dioxide (22 - 30 mmol/L) 29 Anion Gap (5 - 16) 8 BUN (9 - 20 mg/dL) 18 Creatinine (0.7 - 1.2 mg/dL) 0.5 L Estimated GFR (>60 ml/min) > 60 BUN/Creatinine Ratio (7 - 25 %) 36.0 H Glucose (65 - 99 mg/dL) 106 H Calcium (8.4 - 10.2 mg/dL) 8.6 Total Bilirubin (0.2 - 1.3 mg/dL) 1.1 Direct Bilirubin (< 0.4 mg/dL) 0.1 AST (17 - 59 U/L) 92 H ALT (21 - 72 U/L) 28 Alkaline Phosphatase (< 127 U/L) 3737 H Troponin I (<0.11 ng/ml) < 0.01 Total Protein (6.3 - 8.2 g/dL) 5.7 L Albumin (3.5 - 5.0 g/dL) 3.4 L Amylase (30 - 110 U/L) 30 Lipase (23 - 300 U/L) 85 Coagulation PT (9.4 - 12.5 SEC) 16.7 H INR (0.90 - 1.17) 1.53 H APTT (25 - 37 SEC) 26 Hematology CBC w Diff MAN DIFF ORDERED WBC (4.8 - 10.8 /CUMM) 4.7 L RBC (4.70 - 6.10 /CUMM) 2.20 L Hgb (14.0 - 18.0 G/DL) 6.8 *L Hct (42 - 52 %) 21.0 L MCV (80.0 - 94.0 FL) 95.5 H MCH (27.0 - 31.0 PG) 31.0 MCHC (33.0 - 37.0 G/DL) 32.4 L RDW (11.5 - 14.5 %) 23.4 H Plt Count (130 - 400 /CUMM) 200 MPV (7.4 - 10.4 FL) 6.2 L Gran % (42.2 - 75.2 %) 67.7 Lymphocytes % (20.5 - 51.1 %) 21.4 Monocytes % (1.7 - 9.3 %) 9.3 Eosinophils % (0 - 5 %) 1.1 Basophils % (0.0 - 2.0 %) 0.5 Absolute Granulocytes (1.4 - 6.5 /CUMM) 3.2 Segmented Neutrophils (42.2 - 75.2 %) 64 Band Neutrophils (0.0 - 5.0 %) 6 H Absolute Lymphocytes (1.2 - 3.4 /CUMM) 1.0 L Lymphocytes (20.5 - 51.1 %) 24 Monocytes (1.7 - 9.3 %) 3 Absolute Monocytes (0.10 - 0.60 /CUMM) 0.4 Absolute Eosinophils (0.0 - 0.7 /CUMM) 0.1 Basophils (0.0 - 2.0 %) 2 Absolute Basophils (0.0 - 0.2 /CUMM) 0 Metamyelocytes (0.0 - 1.0 %) 1 Nucleated RBCs (0.0 - 0.0 /100WBC) 3 H Platelet Estimate (ADEQUATE) ADEQUATE Polychromasia 1+ Hypochromic-Microcytic 2+ Basophilic Stippling RARE Anisocytosis 2+ Toxicology Serum Alcohol (<10 MG/DL) < 10.0 Imaging/Other Studies: MRI brain IMPRESSION: No acute infarct. Generalized parenchymal volume loss and mild chronic white matter microangiopathy. Diffuse marrow replacement, indicative for the patient's reported history of osseous metastatic disease. No abnormal parenchymal enhancement. Nonspecific holohemispheric linear dural enhancement bilaterally. Although no additional findings are present, idiopathic intracranial hypotension is a possibility and clinical correlation is recommended. Alternatively, findings may represent reactive dural enhancement in the setting of osseous calvarial metastatic disease. Dural metastatic disease cannot be ruled out, though is felt less likely, given absence of dural-based soft tissue masses and nodularity. If indicated, correlation with CSF cytology could be considered in follow-up. Nonspecific bilateral mastoid effusions. Normal appearance of the nasopharynx. Assessment/Plan Assessment: Acute vertigo likely labyrinthitis anti-emetics usual helpful and symptoms may last a few days in duration Abnormal MRI scan shows dural enhancement; etiology is uncertain and unlikely to be related to his presenting symptoms; this will have to be monitored as an outpatient with repeat studies Recommendations: see above Consult Acknowledgment - Thank you for your consult request.
[2017-09-25 18:01] VITALS: BP 112/70
[2017-09-25 21:17] VITALS: BP 110/68
[2017-09-25 21:44] LABS: ABSOLUTE BASOPHIL COUNT 0 /CUMM (0.0-0.2); ABSOLUTE EOSINOPHIL COUNT 0 /CUMM (0.0-0.7); ABSOLUTE GRANULOCYTE CT 2.9 /CUMM (1.4-6.5); ABSOLUTE MONOCYTE COUNT 0.6 /CUMM (0.10-0.60); BASOPHIL % 0.5 % (0.0-2.0); EOSINOPHIL % 0.8 % (0-5); GRANULOCYTE % 63.8 % (42.2-75.2); HEMATOCRIT 25.9 % (42-52); MEAN CORPUSCULAR HGB 31.1 PG (27.0-31.0); MEAN CORPUSCULAR HGB CONC 33.6 G/DL (33.0-37.0); MEAN CORPUSCULAR VOLUME 92.5 FL (80.0-94.0); MEAN PLATELET VOLUME 6.9 FL (7.4-10.4); PLATELET COUNT 167 /CUMM (130-400); RBC DISTRIBUTION WIDTH 22.6 % (11.5-14.5); WHITE BLOOD CELL COUNT 4.5 /CUMM (4.8-10.8)
[2017-09-26 06:33] VITALS: BP 106/66
--- NOTE | 2017-09-26 09:23 | PN- Housestaff ---
Subjective Follow-up For: Acute vertigo due to labyrinthitis Acute on chronic anemia Subjective: No overnight events. Patient remained afebrileseen and examined this morning. Patient denied any chest pain, nausea, vomiting, chills, fever, abdominal pain, lightheadedness, palpitation and dysuria. Patient reported that he is feeling much improved compared to yesterday. He received 2 blood transfusions. Review of Systems Constitutional: Denies: chills, fever. EENTM: Reports: no symptoms. Cardiovascular: Denies: chest pain, orthopena, palpitations. Respiratory: Denies: cough, short of breath, sputum production. Gastrointestinal: Denies: abdominal pain, diarrhea, distention, nausea, vomiting. Genitourinary: Reports: no symptoms. Neurological/Psychological: Reports: no symptoms. Objective Last 24 Hrs of Vital Signs/I&O Vital Signs Date Time Temp Pulse Resp B/P B/P Pulse O2 O2 Flow FiO2 Mean Ox Delivery Rate 09/26 0633 97.7 87 18 106/66 94 09/25 2117 99.5 90 18 110/68 95 Room Air 09/25 1801 92 112/70 09/25 1351 98.6 77 20 110/60 96 Room Air Intake & Output 09/26 1600 09/26 0800 09/26 0000 Intake Total 120 200 Output Total 300 400 Balance -180 -200 Intake, Oral 120 200 Output, Urine 300 400 Physical Exam General Appearance: Alert, Oriented X3, Cooperative Skin: No Rashes Skin Temp/Moisture Exam: Warm/Dry Sepsis Skin Exam (color): Normal for Ethnicity HEENT: Atraumatic, PERRLA, EOMI Neck: Supple Cardiovascular: Normal S1, Normal S2 Lungs: Clear to Auscultation Abdomen: Soft, No Tenderness Neurological: Normal Speech, Strength at 5/5 X4 Ext, Normal Tone Extremities: No Edema Assessment/Plan Assessment: 72-year-old male with past medical history significant for hypertension, prostate cancer with metastasis to bone, chronic anemia requiring transfusion, who comes in for chief complaint of dizziness. Per patient, he was in his usual health today and was working in the yard. We are seeing the patient following problems: Acute vertigo due to labyrinthitis : -Continue meclizine -Possibly viral infection -Zofran as needed for nausea -MRI head didn't show any acute infarct or intracranial pathology. Nonspecific bilateral mastoid effusions Acute on chronic anemia: -Patient having history of stage IV prostate cancer. possibly due to metastatic bone disease. -Patient received 2 blood transfusions yesterday -His H&H is stable 8.6/.1 -We will monitor his H&H History of stage IV prostate cancer: -Continue prednisone 20mg daily and tomorrow we will start 5 mg prednisone that' s his baseline. -Zytiga -Pt has been instructed to bring his Zytiga to the hospital so it can be administerd as we do no carry it in our formulary History of depression: -Continue Lexapro DVT prophylaxis: Mechanical only due to anemia CODE STATUS: Full code Problem List: 1. Vertigo Pain Ratin Pain Location: none Pain Goal: Remain pain free Pain Plan: pain pathway Tomorrow's Labs & Rationales: cbc
[2017-09-26 10:26] LABS: ABSOLUTE BASOPHIL COUNT 0 /CUMM (0.0-0.2); ABSOLUTE EOSINOPHIL COUNT 0.1 /CUMM (0.0-0.7); ABSOLUTE GRANULOCYTE CT 2.4 /CUMM (1.4-6.5); ABSOLUTE MONOCYTE COUNT 0.4 /CUMM (0.10-0.60); BASOPHIL % 0.5 % (0.0-2.0); EOSINOPHIL % 1.3 % (0-5); GRANULOCYTE % 61.9 % (42.2-75.2); HEMATOCRIT 26.1 % (42-52); MEAN CORPUSCULAR HGB 30.5 PG (27.0-31.0); MEAN CORPUSCULAR HGB CONC 32.9 G/DL (33.0-37.0); MEAN CORPUSCULAR VOLUME 92.7 FL (80.0-94.0); MEAN PLATELET VOLUME 6.8 FL (7.4-10.4); PLATELET COUNT 165 /CUMM (130-400); RBC DISTRIBUTION WIDTH 22.7 % (11.5-14.5); RED BLOOD CELL CT 2.82 /CUMM (4.70-6.10); WHITE BLOOD CELL COUNT 3.9 /CUMM (4.8-10.8)
--- NOTE | 2017-09-26 12:27 | PN- Pulmonary ---
Subjective HPI/Critical Care Issues: No overnight events. Patient remained afebrileseen and examined this morning. Patient denied any chest pain, nausea, vomiting, chills, fever, abdominal pain, lightheadedness, palpitation and dysuria. Patient reported that he is feeling much improved compared to yesterday. He received 2 blood transfusions. Review of Systems Constitutional: Denies: chills, fever. EENTM: Reports: no symptoms. Cardiovascular: Denies: chest pain, orthopena, palpitations. Respiratory: Denies: cough, short of breath, sputum production. Gastrointestinal: Denies: abdominal pain, diarrhea, distention, nausea, vomiting. Genitourinary: Reports: no symptoms. Neurological/Psychological: Reports: no symptoms. Objective Current Medications: Current Medications Sig/Kanchan Start time Last Medication Dose Route Stop Time Status Admin Escitalopram Oxalate 10 MG DAILY 09/25 09 AC 09/26 PO 1038 Gabapentin 600 MG Q8 09/25 0600 AC 09/26 PO 0650 Meclizine HCl 12.5 MG TID 09/25 0900 AC 09/26 PO 1038 Melatonin 3 MG QPM 09/25 2100 AC 09/25 PO 2123 Ondansetron HCl 4 MG Q6P PRN 09/25 0700 AC IV Oxycodone HCl 10 MG BID 09/25 0900 AC 09/26 PO 1039 Oxycodone HCl 5 MG Q4 PRN 09/25 0345 AC PO Oxycodone/ 2 TAB Q4P PRN 09/24 2345 AC 09/25 Acetaminophen PO 0043 Prednisone 20 MG DAILY 09/26 0900 AC PO Prednisone 5 MG BID 09/25 0900 DC 09/25 PO 0950 Vital Signs & I&O Last 24 Hrs of Vitals and I&O: Vital Signs Date Time Temp Pulse Resp B/P B/P Pulse O2 O2 Flow FiO2 Mean Ox Delivery Rate 09/26 0633 97.7 87 18 106/66 94 09/25 2117 99.5 90 18 110/68 95 Room Air 09/25 1801 92 112/70 09/25 1351 98.6 77 20 110/60 96 Room Air Intake & Output 09/26 1600 09/26 0800 09/26 0000 Intake Total 120 200 Output Total 300 400 Balance -180 -200 Intake, Oral 120 200 Output, Urine 300 400 Impression/Plan Impression/Plan Impression/Plan: General Appearance: Alert, Oriented X3, Cooperative Skin: No Rashes Skin Temp/Moisture Exam: Warm/Dry Sepsis Skin Exam (color): Normal for Ethnicity HEENT: Atraumatic, PERRLA, EOMI Neck: Supple Cardiovascular: Normal S1, Normal S2 Lungs: Clear to Auscultation Abdomen: Soft, No Tenderness Neurological: Normal Speech, Strength at 5/5 X4 Ext, Normal Tone Extremities: No Edema This is a gentleman with end-stage prostate cancer with multiple metastases with recent worsening of his overall performance status with bone marrow involvement, anemia now with Severe anemia due to extensive BM mets from prostate ca Sig BPV, no evidence of stroke or malignancy, acute labrinthitis No evidence of cva Prob mild sinusitis vs mastoiditis but bacterial infection less likely Depression Abnormal MRI scan shows dural enhancement; etiology is uncertain and unlikely to be related to his presenting symptoms; this will have to be monitored as an outpatient with repeat studies REC COnt current rx Meclazine 12.5 PO Q6 PRN I ambulated the patient and he is stable to be dcd Pt not a good candidate for eply due to sig spinal mets OK to dc Dc on home meds and meclazine 12.5 mg po q 6 hr prn Pt advised to use his walker at all times To not drive\ Will follow
[2017-09-26] MEDS ORDERED: MECLIZINE HCL12.5 M1 PO ×2 (12:45→12:54)
--- NOTE | 2017-09-26 12:49 | Patient Discharge Instructions ---
Discharge Instructions General Discharge Information You were seen/treated for: Acute vertigo due to labrinthitis Acute on chronic anemia Watch for these problems: vertigo, chest pain, shortness of breath on exertion, nausea, vomiting and difficulty in balance. If you experience any of these symptoms please come to ED or call to pcp. Special Instructions: Follow up with primary care physician in one week Diet Recommended Diet: Regular Activity Activity Self Limited: Yes Acute Coronary Syndrome Inclusion Criteria At DC or during hospital stay patient has or had the following: ACS DIAGNOSIS No Discharge Core Measures Meds if any: Prescribed or Continued at Discharge Meds if any: NOT Prescribed or Continued at Discharge Congestive Heart Failure Inclusion Criteria At DC or during hospital stay patient has or had the following: CHF DIAGNOSIS No Discharge Core Measures Meds if any: Prescribed or Continued at Discharge Meds if any: NOT Prescribed or Continued at Discharge Cerebrovascular accident Inclusion Criteria At DC or during hospital stay patient has or had the following: CVA/TIA Diagnosis No Discharge Core Measures Meds if any: Prescribed or Continued at Discharge Meds if any: NOT Prescribed or Continued at Discharge Venous thromboembolism Inclusion Criteria VTE Diagnosis No VTE Type NONE VTE Confirmed by (Test) NONE Discharge Core Measures - Per Current guidelines, there needs to be overlap - treatment for the first 5 days of Warfarin therapy. - If discharged on Warfarin prior to 5 days of - overlap therapy, the patient will need to be - assessed for post discharge needs including - *Post discharge parental anticoagulation - *Warfarin and/or parental anticoagulation education - *Follow up date to check INR post discharge At least 5 days overlap therapy as Inpatient No Meds if any: Prescribed or Continued at Discharge Note: Overlap Therapy is Warfarin and Anticoagulant Meds if any: NOT Prescribed or Continued at Discharge
== END 2017-09-26 14:38 | DRG 149 ==
LOC: ERH 20:33 → ERHI 09-25 02:09 → 2NB 09-25 03:41
PROVIDERS: Pediatrics; Student in an Organized Health Care Education/Training Program
PROC: 30233N1 Transfusion of Nonautologous Red Blood Cells into Peripheral Vein, Percutaneous Approach (ICD-10-PCS; principal; 2017-09-25)
DX: H83.09 Labyrinthitis, unspecified ear (principal); C79.51 Secondary malignant neoplasm of bone; G62.9 Polyneuropathy, unspecified; C61 Malignant neoplasm of prostate; D63.8 Anemia in other chronic diseases classified elsewhere; D72.819 Decreased white blood cell count, unspecified; F32.9 Major depressive disorder, single episode, unspecified; I10 Essential (primary) hypertension; G47.00 Insomnia, unspecified; Z88.0 Allergy status to penicillin
CPT/HCPCS: 2NBSP; 70552; 36592; 70553; 71045; 82436; 83010; 86920; 93005; 93010; 97161-GP; 97530-GO; 99291; A9579; G0480; J3101; J7512; P9016

== ENCOUNTER 2017-10-06 19:19 | Inpatient (IN) | payer OTHER, MEDICARE ==
[~2017-10-06] VITALS: Ht 177.8 cm; Wt 74.8 kg
[~2017-10-06 19:19] MED LIST changes: -ATACAND16 M1 PO; +MECLIZINE HCL12.5 M1 PO
--- NOTE | 2017-10-06 19:57 | ED AMS/SEIZURE/WEAK/DIZZY ---
History of Present Illness General Chief Complaint: General Adult Stated Complaint: PT DX: BONE CANCER, PAIN ALL OVER Source: patient, family, old records Exam Limitations: no limitations Vital Signs & Intake/Output Vital Signs & Intake/Output Vital Signs Date Time Temp Pulse Resp B/P B/P Pulse O2 O2 Flow FiO2 Mean Ox Delivery Rate 10/07 0007 98.2 97 18 110/58 95 10/06 2357 Room Air 10/060 99.2 103 14 118/56 98 Room Air 10/06 2126 101.6 105 142/67 95 Room Air 10/06 2012 102.5 10/06 193 102.5 120 18 141/78 95 Room Air ED Intake and Output 10/07 0000 10/06 1200 Intake Total Output Total Balance Patient 165 lb Weight Weight Reported by Patient Measurement Method Allergies Coded Allergies: Penicillins (UNKNOWN PER PT DAUGHTER 08/15/17) Reconcile Medications Escitalopram Oxalate 10 MG TABLET 1 TAB PO DAILY MENTAL HEALTH (Reported) Fexofenadine HCl (Mariam Allergy) 180 MG TABLET 1 TAB PO PRN ALLERGIES ( Reported) Fish Oil/Dha/Epa (Fish Oil 1,200 MG Fish Oil) 1,200 MG-144 MG-216 MG CAPSULE 1 CAP PO DAILY SUPPLEMENT (Reported) Gabapentin (Neurontin) 800 MG TABLET 1 TAB PO TID Neuropathy (Reported) Ibuprofen (Advil) 200 MG CAPSULE 2-4 CAP PO PRN PAIN (Reported) Meclizine HCl 12.5 MG TABLET 1 TAB PO FOUR TIMES A DAY PRN Vertigo Melatonin 3 MG TABLET 1 TAB PO QPM SUPPLEMENT (Reported) Multiple Vitamin (Multivitamins) 1 EACH TABLET 1 TAB PO DAILY SUPPLEMENT ( Reported) Oxycodone HCl 5 MG CAPSULE 1-2 CAP PO Q4H PRN PAIN (Reported) Oxycodone HCl (Oxycontin) 10 MG TAB.ER.12H 1 TAB PO BID PAIN (Reported) Prednisone 5 MG TABLET 1 TAB PO BID STEROID (Reported) Triage Note: PT FROM HOME C/O WEAKNESS SINCE THIS AM. PT HAS HX OF PROSTATE CA AND BONE CA, PT IS FEBRILE IN TRIAGE WITH A TEMP OF 102.5, HR 120, SOB, AND CP "WHERE THE CA IS" PER PT. PTS BP 141/78. Triage Nurses Notes Reviewed? yes Onset: Morning Duration: hour(s):, constant, continues in ED, getting worse Timing: recent history Injury Environment: home Severity: severe Modifying Factors: Improves With: rest. Worsens With: movement. Associated Symptoms: back pain, chest pain HPI: 1 day prior to admission patient reports progressive weakness and fatigue unable to ambulate with anorexia chronic back and chest pain. He denies fever chills nausea vomiting diarrhea shortness of breath cough headache dysuria rash bleeding. In the ED is febrile. Past History Travel History Traveled to [place] past 21 day No Medical History Any Pertinent Medical History? 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 No Review of Systems Review of Systems Constitutional: Reports: see HPI, weakness. EENTM: Reports: no symptoms. Respiratory: Reports: no symptoms. Cardiovascular: Reports: see HPI, chest pain. GI: Reports: no symptoms. Genitourinary: Reports: no symptoms. Musculoskeletal: Reports: see HPI, joint pain. Skin: Reports: no symptoms. Neurological/Psychological: Reports: no symptoms. Hematologic/Endocrine: Reports: no symptoms. Immunologic/Allergic: Reports: no symptoms. All Other Systems: Reviewed and Negative Physical Exam Physical Exam General Appearance: well developed/nourished, alert, awake, severe distress Head: atraumatic, normal appearance Eyes: Bilateral: normal appearance, PERRL, EOMI. Ears, Nose, Throat: normal pharynx, normal ENT inspection, hearing grossly normal Neck: normal inspection, supple, full range of motion, no midline tenderness Respiratory: normal breath sounds, chest non-tender, no respiratory distress, quiet respiration, lungs clear Cardiovascular: regular rate/rhythm, normal peripheral pulses, tachycardia, norml femoral pulses equa Peripheral Pulses: 4+ carotid (R), 4+ carotid (L) Gastrointestinal: normal bowel sounds, soft, non-tender, no organomegaly Back: normal inspection, normal range of motion, no vertebral tenderness Extremities: normal range of motion, no ligament instability Neurologic/Psych: no motor/sensory deficits, awake, alert, oriented x 3, 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 Skin: intact, normal color, warm/dry Lymphatic: no anterior cervical dean Core Measures ACS in differential dx? No CVA/TIA Diagnosis No Sepsis Present: Yes Sepsis Focused Exam Completed? Yes ED Sepsis Exam Date of Focused Sepsis Exam: 10/06/17 Time of Focused Sepsis Exam: 2229 Sepsis Cardiac Exam: Tachycardia Sepsis Resp Exam: CTA Sepsis Cap Refill Exam: <2 Sec Sepsis Peripheral Pulse Exam: Normal Sepsis Peripheral Pulse Location: Radial Sepsis Skin Color Exam: Normal for Ethnicity Skin Temp/Moisture Exam: Warm/Dry Progress Differential Diagnosis: electrolyte imbalance, hypoxia, pneumonia, UTI/pyelo Plan of Care: Orders Procedure Date/time Status Regular Diet 10/07 B Active CBC WITHOUT DIFFERENTIAL 10/07 06 Active BASIC ELECTROLYTES PLUS BUN&CR 10/07 06 Active Weight 10/07 2351 Complete Vital Signs 10/07 2351 Active Teach/Educate 10/07 2351 Active Pain Treatment and Response 10/07 2351 Active Nutritional Intake, Monitor 10/07 2351 Active Isolation 10/07 2351 Active Intake & Output 10/07 2351 Active Patient Care Conference 10/07 2351 Active Activity/Ambulation 10/07 2351 Active PT Evaluate & Treat 10/06 2333 Active Pathway - chart 10/06 2333 Active House Staff 10/06 233 Active Patient Data 10/06 233 Active LACTIC ACID 10/07 2251 Complete OXYGEN SETUP (GEN) 10/06 2205 Active Saline Lock 10/06 2205 Active Admit to inpatient 10/06 2205 Active Vital Signs 10/06 2205 Active Activity/Ambulation 10/06 2205 Active Code Status 10/06 2205 Active Patient Data 10/06 2201 Active Add-on Test (ER Only) 10/06 2144 Active CULTURE,URINE 10/06 2041 Active Add-on Test (ER Only) 10/06 2040 Active Intake & Output 10/06 1958 Active TROPONIN LEVEL 10/06 1956 Complete BLOOD CULTURE 10/07 1951 Active URINALYSIS 10/07 1951 Complete MAGNESIUM 10/07 1951 Complete LACTIC ACID 10/07 1951 Complete COMPREHENSIVE METABOLIC PANEL 10/07 1951 Complete CBC WITHOUT DIFFERENTIAL 10/07 1951 Complete VTE Mechanical Prophylaxis 10/06 UNK Active Current Medications Sig/[place] Start time Last Medication Dose Stop Time Status Admin Melatonin 3 MG QPM 10/07 2100 AC (Melatonin) Enoxaparin Sodium 40 MG DAILY 10/07 899 AC (Lovenox) Escitalopram Oxalate 10 MG DAILY 10/07 899 AC (Lexapro) Multivitamins 1 TAB DAILY 10/07 899 AC Therapeutic (Theragran-M Vitamins Tabs) Oxycodone HCl 10 MG BID 10/07 899 AC (OxyCONTIN) Prednisone 5 MG BID 10/07 899 AC Gabapentin 800 MG TID 10/06 2358 AC (Neurontin) Meclizine HCl 12.5 MG TID PRN 10/06 234 AC (Antivert) Morphine Sulfate 2 MG Q4P PRN 10/06 2344 AC (MORPHINE SULFATE) Oxycodone HCl 5 MG Q6 PRN 10/06 234 AC (Roxicodone) Sodium Chloride 1,000 ML Q13H 10/06 234 AC (Normal Saline 0.9%) 10/07 1244 Laboratory Tests 10/06/172231: Lactic Acid 1.1 10/06/172041: Urinalysis LIGHT H, Urine Color YEL, Urine Clarity CLEAR, Urine pH 7.0, Ur Specific [place] 1.025, Urine Protein 100 H, Urine Ketones NEG, Urine Nitrite NEG, Urine Bilirubin NEG, Urine Urobilinogen 1.0, Ur Leukocyte Esterase NEG, Ur Microscopic SEDIMENT EXAMINED, Urine RBC RARE, Urine WBC RARE, Ur Epithelial Cells RARE, Hyaline Casts RARE H, Urine Mucus MOD H, Urine Hemoglobin NEG, Urine Glucose NEG 10/06/171956: Anion Gap 10, Estimated GFR > 60, BUN/Creatinine Ratio 26.7 H, Glucose 138 H, Lactic Acid 2.7 H, Calcium 8.3 L, Magnesium 1.7, Total Bilirubin 2.0 H, AST 194 H, ALT 19 L, Alkaline Phosphatase 3980 H, Troponin I < 0.01, Total Protein 6.1 L, Albumin 3.6, Globulin 2.5, Albumin/Globulin Ratio 1.4, CBC w Diff NO MAN DIFF REQ, RBC 3.09 L, MCV 91.9, MCH 31.4 H, MCHC 34.1, RDW 21.0 H , MPV 6.2 L, Gran % 73.9, Lymphocytes % 12.6 L, Monocytes % 13.0 H, Eosinophils % 0.2, Basophils % 0.3, Absolute Granulocytes 5.5, Absolute Lymphocytes 0.9 L, Absolute Monocytes 1.0 H, Absolute Eosinophils 0, Absolute Basophils 0 Microbiology 10/06 2041 URINE ROUT: Urine Culture - RECD 10/06 2024 BLOOD: Blood Culture - RECD 10/06 2022 BLOOD: Blood Culture - RECD Diagnostic Imaging: Viewed by Me: Radiology Read. Discussed w/RAD: Radiology Read. CXR Impression: 1. There are no acute cardiopulmonary findings. 2. Areas of sclerosis in the osseous structures may be consistent with extensive osseous metastases. Initial ED EKG: none Rhythm Strip: sinus tachycardia Departure Departure Disposition: STILL A PATIENT Condition: Stable Clinical Impression Primary Impression: Bacteremia Secondary Impressions: Fever, Lactic acidosis Referrals: Conner Mead MD (PCP/Family) Departure Forms: Customer Survey General Discharge Information Admission Note Spoke With: Conner Mead MD Documentation of Exam: Documentation of any treatments & extenuating circumstances including Concerns Regarding Discharge (functional status, medication knowledge or non-compliance, living conditions, etc.) that warrant an admission rather than observation: IV fluids antipyretics IV antibiotics follow cultures medication adjustment oncology evaluation continuing care discharge planning Critical Care Note Critical Care Note Critical Care Time: 30-74 min (35)
[2017-10-06 20:10] LABS: ABSOLUTE BASOPHIL COUNT 0 /CUMM (0.0-0.2); ABSOLUTE EOSINOPHIL COUNT 0 /CUMM (0.0-0.7); ABSOLUTE GRANULOCYTE CT 5.5 /CUMM (1.4-6.5); ABSOLUTE LYMPH COUNT 0.9 /CUMM (1.2-3.4); BASOPHIL % 0.3 % (0.0-2.0); EOSINOPHIL % 0.2 % (0-5); GRANULOCYTE % 73.9 % (42.2-75.2); HEMATOCRIT 28.4 % (42-52); MEAN CORPUSCULAR HGB 31.4 PG (27.0-31.0); MEAN CORPUSCULAR HGB CONC 34.1 G/DL (33.0-37.0); MEAN CORPUSCULAR VOLUME 91.9 FL (80.0-94.0); MEAN PLATELET VOLUME 6.2 FL (7.4-10.4); PLATELET COUNT 240 /CUMM (130-400); RED BLOOD CELL CT 3.09 /CUMM (4.70-6.10); WHITE BLOOD CELL COUNT 7.5 /CUMM (4.8-10.8)
--- NOTE | 2017-10-06 20:37 | RADIOLOGY REPORT ---
EXAMINATION: XR PORTABLE CHEST CLINICAL INFORMATION: Fever. History of metastatic prostate carcinoma with metastases. Assess for pneumonia. COMPARISON: Portable chest x-ray 09/24/2017. TECHNIQUE: Portable frontal view of the chest was obtained. FINDINGS: The lung dudley are well expanded and appear clear bilaterally. The cardiac silhouette is normal. There are no pleural effusions or pneumothorax. The central pulmonary vasculature is normal. The hilar regions appear normal. The osseous structures appear relatively diffusely sclerotic, which may be consistent with extensive metastatic disease. IMPRESSION: 1. There are no acute cardiopulmonary findings. 2. Areas of sclerosis in the osseous structures may be consistent with extensive osseous metastases.
--- NOTE | 2017-10-06 22:22 | History & Physical ---
Corky Israel 10/06/17 2221: General Information and HPI MD Statement: I have seen and personally examined CHIP NICE and documented this H&P. The patient is a 72 year old M who presented with a patient stated chief complaint of [weakness]. Source of Information: patient, family, old records Exam Limitations: no limitations History of Present Illness: Patient is a 72-year-old male with past medical history significant for metastatic prostate cancer (diagnosed 2002 f/b 45 rounds of radiotherapy followed by sacral cancer in 2009 underwent 15 rounds of radiotherapy f/b recurrence last year) now on hormone therapy every 3 months (follows ) , hypertension who presented to ER with progressive worsening of generalized weakness. This is the fourth admission since April 2017 last admission was this september 25-. Patient denies any fever or chills prior to generalized weakness but on presentation was very febrile with temperature 102.5F. He denies any cough shortness of breath or chest pain, he has no sore throat but reports sinus congestions with posterior muscle dripping which has been ongoing for a while. He denies any frontal headache, ear pain, nasal discharge or change in hearing. Patient denies any urinary symptoms increasing frequency painful during micturition or lower abdominal pain. She reports mild nausea but denies any vomiting, since discharge he has been having dizziness on and off and has been taking his meclizine as instructed. Patient denies any chest pain or shortness of breath however he reports generalized pain from his metastatic prostate cancer which has been getting worse and he thinks his contributing to his weakness. Patient lives with his he reports to be pretty independent doing all ADLs by himself and is also able to drive but he reports that since the last admission he has been below his baseline and restriction in activities due to weakness. Allergies/Medications Allergies: Coded Allergies: Penicillins (UNKNOWN PER PT DAUGHTER 08/15/17) Home Med list Escitalopram Oxalate 10 MG TABLET 1 TAB PO DAILY MENTAL HEALTH (Reported) Fexofenadine HCl (Mariam Allergy) 180 MG TABLET 1 TAB PO PRN ALLERGIES ( Reported) Fish Oil/Dha/Epa (Fish Oil 1,200 MG Fish Oil) 1,200 MG-144 MG-216 MG CAPSULE 1 CAP PO DAILY SUPPLEMENT (Reported) Gabapentin (Neurontin) 800 MG TABLET 1 TAB PO TID Neuropathy (Reported) Ibuprofen (Advil) 200 MG CAPSULE 2-4 CAP PO PRN PAIN (Reported) Meclizine HCl 12.5 MG TABLET 1 TAB PO FOUR TIMES A DAY PRN Vertigo Melatonin 3 MG TABLET 1 TAB PO QPM SUPPLEMENT (Reported) Multiple Vitamin (Multivitamins) 1 EACH TABLET 1 TAB PO DAILY SUPPLEMENT ( Reported) Oxycodone HCl 5 MG CAPSULE 1-2 CAP PO Q4H PRN PAIN (Reported) Oxycodone HCl (Oxycontin) 10 MG TAB.ER.12H 1 TAB PO BID PAIN (Reported) Prednisone 5 MG TABLET 1 TAB PO BID STEROID (Reported) Past History Travel History Traveled to [place] past 21 day No Medical History Neurological: peripheral neuropathy EENT: NONE Cardiovascular: hypertension Respiratory: NONE Gastrointestinal: NONE Hepatic: NONE Renal: NONE Musculoskeletal: NONE Psychiatric: insomnia Endocrine: NONE Blood Disorders: anemia Cancer(s): prostate cancer, metastatic bone ca 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 Ambulation: independent IADLs Independent: shopping, housework, finances, food prep, telephone, transportation , medication admin. Review of Systems Review of Systems Constitutional: Reports: malaise, weakness. Denies: chills, fever. EENTM: Reports: nasal congestion. Denies: no symptoms. Cardiovascular: Denies: chest pain, orthopena, palpitations, peripheral edema. Respiratory: Denies: cough, short of breath. GI: Reports: nausea. Denies: abdominal pain, vomiting. Genitourinary: Denies: discharge, dysuria, frequency, pain, urgency. Musculoskeletal: Reports: see HPI, back pain. Skin: Denies: no symptoms. Hematologic/Endocrine: Denies: no symptoms. Immunologic/Allergic: Denies: HIV/AIDS. All Other Systems: Reviewed and Negative Exam & Diagnostic Data Last 24 Hrs of Vital Signs/I&O Vital Signs Date Time Temp Pulse Resp B/P B/P Pulse O2 O2 Flow FiO2 Mean Ox Delivery Rate 10/07 0007 98.2 97 18 110/58 95 10/06 2357 Room Air 10/06 2310 99.2 103 14 118/56 98 Room Air 10/06 2126 101.6 105 142/67 95 Room Air 10/06 2012 102.5 10/06 1932 102.5 120 18 141/78 95 Room Air Intake & Output 10/07 0800 10/07 0000 10/06 1600 Intake Total Output Total Balance Patient 165 lb Weight Weight Reported by Patient Measurement Method Physical Exam General Appearance Alert, Oriented X3, Cooperative, No Acute Distress Skin No Rashes, No Breakdown, No Significant Lesion Skin Temp/Moisture Exam: Warm/Dry Sepsis Skin Exam (color): Normal for Ethnicity HEENT Atraumatic, PERRLA, Mucous membranes mildly dry Neck Supple, No JVD Cardiovascular Regular Rate, Normal S1, Normal S2, No Murmurs Lungs Cracles more prominent on the left bases Abdomen Normal Bowel Sounds, Soft, No Tenderness, No CVA tenderness Neurological Normal Speech, Normal Tone Extremities No Clubbing, No Cyanosis, No Edema Vascular Normal Pulses Sepsis Peripheral Pulse Location: Dorsalis Pedis Sepsis Peripheral Pulse Exam: Normal Sepsis Cap Refill Exam: <2 Sec Last 24 Hrs of Labs/Lino: Laboratory Tests 10/06/172231: Lactic Acid 1.1 10/06/172041: Urinalysis LIGHT H, Urine Color YEL, Urine Clarity CLEAR, Urine pH 7.0, Ur Specific [place] 1.025, Urine Protein 100 H, Urine Ketones NEG, Urine Nitrite NEG, Urine Bilirubin NEG, Urine Urobilinogen 1.0, Ur Leukocyte Esterase NEG, Ur Microscopic SEDIMENT EXAMINED, Urine RBC RARE, Urine WBC RARE, Ur Epithelial Cells RARE, Hyaline Casts RARE H, Urine Mucus MOD H, Urine Hemoglobin NEG, Urine Glucose NEG 10/06/171956: Anion Gap 10, Estimated GFR > 60, BUN/Creatinine Ratio 26.7 H, Glucose 138 H, Lactic Acid 2.7 H, Calcium 8.3 L, Magnesium 1.7, Total Bilirubin 2.0 H, AST 194 H, ALT 19 L, Alkaline Phosphatase 3980 H, Troponin I < 0.01, Total Protein 6.1 L, Albumin 3.6, Globulin 2.5, Albumin/Globulin Ratio 1.4, CBC w Diff NO MAN DIFF REQ, RBC 3.09 L, MCV 91.9, MCH 31.4 H, MCHC 34.1, RDW 21.0 H , MPV 6.2 L, Gran % 73.9, Lymphocytes % 12.6 L, Monocytes % 13.0 H, Eosinophils % 0.2, Basophils % 0.3, Absolute Granulocytes 5.5, Absolute Lymphocytes 0.9 L, Absolute Monocytes 1.0 H, Absolute Eosinophils 0, Absolute Basophils 0 Microbiology 10/06 2041 URINE ROUT: Urine Culture - RECD 10/06 2024 BLOOD: Blood Culture - RECD 10/06 2022 BLOOD: Blood Culture - RECD Diagnostic Data CXR Results No acute cardiopulmonary pathology Assessment/Plan Assessment: This is a 72 years old gentleman with a history of advanced prostate cancer currently on hormonal therapy only status post multiple treatments in the past who has been progressively deteriorating requiring 4 admissions in the past 5 months and presenting with one-day history of generalized weakness. Patient denies any fevers or chills but on presentation was very febrile with temperature of 102.5. He has normal UA and negative chest x-ray with slight increase lactic acid of 2.7 which resolved after fluid correction. Problem list Advanced prostate cancer Generalized weakness Fever without focus of infection Chronic pain Depression Will admit the patient to general medicine floor Patient received 2 L of normal saline with excellent correction of a lactic acid to normal level of 1.1 will continue with normal saline at 75 mL/h one bottle Restart home pain medication OxyContin 10 mg every 12 hours and oxycodone 5 mg every 4 when necessary also patient will be on morphine 2 mg every 6 when necessary for severe pain Continue to follow urine and blood culture, the patient received 1 dose of ceftriaxone but due to no evidence of infection we will hold the antibiotic and consider restarting if he spikes fever I could hear crackles from the left side of the lung and patient appears mildly dehydrated which can delay appearance of pneumonia on the x-ray will repeat CXR tomorrow morning after rehydration for review. Consider call to oncologist after discussion with attending Cam for DVT prophylaxis Regular diet Patient is DNR/DNI As Ranked By This Provider Problem List: 1. Lactic acidosis 2. Fever 3. General weakness 4. Prostate cancer metastatic to bone Core Measures/Misc (01/31) Acute Coronary Syndrome ACS Diagnosis: No Congestive Heart Failure Congestive Heart Failure Diagnosis No Cerebrovascular Accident CVA/TIA Diagnosis: No VTE (View Protocol) VTE Risk Factors Cancer/chemo/othr therapy No Mechanical VTE Prophylaxis d/t N/A MechProphylax Ordered No VTE Pharm Prophylaxis d/t NA PharmProphylax ordered Sepsis (View protocol) Sepsis Present: No If YES complete Sepsis Event Note If YES complete Sepsis Event Note Resident Review Statement Resident Statement: examined this patient, My assessment as above [place] [facility] 10/07/17 1331: Core Measures/Misc (01/31) Sepsis (View protocol) If YES complete Sepsis Event Note If YES complete Sepsis Event Note Attending MD Review Statement Attending Statement Attending MD Statement: examined this patient, discuss w/resident/PA/BAGGAGEMAN, agreed w/resident/PA/BAGGAGEMAN, discussed with family, reviewed EMR data (avail), discussed with nursing, discussed with case mgmt, reviewed images, amended to note Attending Assessment/Plan: This is a gentleman with end-stage prostate cancer with multiple metastases with recent worsening of his overall performance status with bone marrow involvement, anemia now with * Sig fever, and sepsis rule out biliary infection vs other path (zytega does cause lft elevation how ever) * Very advanced prostate ca on zytega * Severe anemia due to extensive BM mets from prostate ca * Recent Sig BPV, no evidence of stroke or malignancy, acute labrinthitis * Depression * Previous steroid use, with prior cortisol level being adequate * Left UE edema rule out vte * Abnormal MRI scan shows dural enhancement; etiology is uncertain needs out pt eval REC Watch off abx Await cultures Ultrasound of Liver and GB Ultrasound of left upper ext and if no infectious source then ultrasound of all 4 extremities Hold zytiga Cont steroid and increase prednisone to 15 mg Cont pain meds Agg bowel regimen including bid ismael, docusate and prn miralax Follow LFTs IF he spikes again will start ceftriaxone and flagyl Cont gentle ivf Will follow
[2017-10-07 00:07] VITALS: BP 110/58
--- NOTE | 2017-10-07 06:35 | Cons- Oncology ---
General Information and HPI Consulting Request Date of Consult: 10/07/17 Requested By: [place] STERN,Conner Funes History of Present Illness: 72-year-old man well known to me with advanced prostate cancer being treated with Zytiga/prednisone now admitted with fever and marked weakness. Patient was in his usual state of health and he had the sudden onset of weakness. He was noted in the emergency room to be febrile to greater than 102. The patient has had a similar episode in the past of uncertain etiology. The patient's recent oncologic history and complicated with a very hectic PSA curve. Allergies/Medications Allergies: Coded Allergies: Penicillins (UNKNOWN PER PT DAUGHTER 08/15/17) Home Med List: Escitalopram Oxalate 10 MG TABLET 1 TAB PO DAILY MENTAL HEALTH (Reported) Fexofenadine HCl (Mariam Allergy) 180 MG TABLET 1 TAB PO PRN ALLERGIES ( Reported) Fish Oil/Dha/Epa (Fish Oil 1,200 MG Fish Oil) 1,200 MG-144 MG-216 MG CAPSULE 1 CAP PO DAILY SUPPLEMENT (Reported) Gabapentin (Neurontin) 800 MG TABLET 1 TAB PO TID Neuropathy (Reported) Ibuprofen (Advil) 200 MG CAPSULE 2-4 CAP PO PRN PAIN (Reported) Meclizine HCl 12.5 MG TABLET 1 TAB PO FOUR TIMES A DAY PRN Vertigo Melatonin 3 MG TABLET 1 TAB PO QPM SUPPLEMENT (Reported) Multiple Vitamin (Multivitamins) 1 EACH TABLET 1 TAB PO DAILY SUPPLEMENT ( Reported) Oxycodone HCl 5 MG CAPSULE 1-2 CAP PO Q4H PRN PAIN (Reported) Oxycodone HCl (Oxycontin) 10 MG TAB.ER.12H 1 TAB PO BID PAIN (Reported) Prednisone 5 MG TABLET 1 TAB PO BID STEROID (Reported) Current Medications: Current Medications Sig/Kanchan Start time Last Medication Dose Route Stop Time Status Admin Acetaminophen 0 .STK-MED ONE 10/07 2015 DC PO Acetaminophen 975 MG ONCE ONE 10/07 1999 DC 10/06 PO 10/06 Ceftriaxone Sodium 0 .STK-MED ONE 10/07 2207 DC .ROUTE Ceftriaxone Sodium 1,000 MG ONCE ONE 10/06 2144 DC 10/06 IV 10/06 Enoxaparin Sodium 40 MG DAILY 10/07 899 AC SC Escitalopram Oxalate 10 MG DAILY 10/07 899 AC PO Gabapentin 800 MG TID 10/06 2359 AC 10/07 PO 0432 Ketorolac 0 .STK-MED ONE 10/07 2207 DC Tromethamine .ROUTE Ketorolac 30 MG ONCE ONE 10/06 2144 DC 10/06 Tromethamine IV 10/06 Meclizine HCl 12.5 MG TID PRN 10/06 234 AC PO Melatonin 3 MG QPM 10/07 2100 AC PO Morphine Sulfate 2 MG Q4P PRN 10/06 2344 AC IV Morphine Sulfate 0 .STK-MED ONE 10/06 2206 DC .ROUTE Morphine Sulfate 4 MG ONCE ONE 10/06 2144 DC 10/06 IV 10/06 Morphine Sulfate 0 .STK-MED ONE 10/07 2015 DC .ROUTE Morphine Sulfate 4 MG ONCE ONE 10/07 1999 DC 10/06 IV 10/06 Multivitamins 1 TAB DAILY 10/07 0900 AC Therapeutic PO Oxycodone HCl 10 MG BID 10/07 09 AC PO Oxycodone HCl 5 MG Q6 PRN 10/06 2344 AC PO Oxycodone HCl 0 .STK-MED ONE 10/07 2015 DC PO Oxycodone HCl 10 MG ONCE ONE 10/07 1999 DC 10/06 PO 10/06 Prednisone 5 MG BID 10/07 0900 AC PO Sodium Chloride 1,000 ML Q13H 10/06 234 AC 10/07 IV 10/07 1244 0011 Sodium Chloride 1,000 ML BOLUS ONE 10/06 2144 DC 10/06 IV 10/07 2243 220 Sodium Chloride 1,000 ML BOLUS ONE 10/07 1999 DC 10/06 IV 10/06 Sodium Chloride 1,000 ML BOLUS ONE 10/07 1999 DC 10/06 IV 10/06 Sodium Chloride 500 ML BOLUS ONE 10/07 1999 DC 10/06 IV 10/06 Review of Systems Review of Systems: Patient denies headaches or dizziness. Patient denies shortness of breath cough chest pain or hemoptysis. Patient denies nausea vomiting abdominal pain or diarrhea. Patient denies dysuria hematuria. Patient has no changes chronic bone pain. Patient denies focal neurologic deficit. 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 Ambulation: independent IADLs Independent: shopping, housework, finances, food prep, telephone, transportation , medication admin. Exam & Diagnostic Data Vital Signs and I&O Vital Signs Date Time Temp Pulse Resp B/P B/P Pulse O2 O2 Flow FiO2 Mean Ox Delivery Rate 10/07 0007 98.2 97 18 110/58 95 10/06 2357 Room Air 10/06 2310 99.2 103 14 118/56 98 Room Air 10/06 2126 101.6 105 142/67 95 Room Air 10/06 2013 102.5 10/06 193 102.5 120 18 141/78 95 Room Air Intake & Output 10/07 0800 10/07 0000 10/06 1600 Intake Total 840 Output Total 700 Balance 140 Intake, IV 600 Intake, Oral 240 Output, Urine 700 Patient 165 lb Weight Weight Reported by Patient Measurement Method Gen.: in NAD ENT: Sclera anicteric Chest: Normal respiratory effort, decreased breath sounds Cor: RRR, no extra sounds Abdomen: Soft, bowel sounds present, no tenderness, no rebound Extremities: Without clubbing, cyanosis, or asymmetric edema Neurology: Alert and oriented 3, no gross deficit Skin: No rashes Last 48 Hours of Lab Results: Laboratory Tests 10/062 Chemistry Lactic Acid (0.7 - 2.1 mmol/L) 1.1 Urines Urinalysis LIGHT H Urine Color (YEL,AMB,STR) YEL Urine Clarity (CLEAR) CLEAR Urine pH (5.0 - 8.0) 7.0 Ur Specific [place] (1.001 - 1.035) 1.025 Urine Protein (NEG,<30 MG/DL) 100 H Urine Ketones (NEG) NEG Urine Nitrite (NEG) NEG Urine Bilirubin (NEG) NEG Urine Urobilinogen (0.1 - 1.0 EU/dl) 1.0 Ur Leukocyte Esterase (NEG) NEG Ur Microscopic SEDIMENT EXAMINED Urine RBC (0 - 5 /HPF) RARE Urine WBC (0 - 2 /HPF) RARE Ur Epithelial Cells (NONE,FEW) RARE Hyaline Casts (0/LPF) RARE H Urine Mucus (FEW,NONE) MOD H Urine Hemoglobin (NEG) NEG Urine Glucose (N MG/DL) NEG 10/06 1956 Chemistry Sodium (137 - 145 mmol/L) 132 L Potassium (3.5 - 5.1 mmol/L) 4.0 Chloride (98 - 107 mmol/L) 98 Carbon Dioxide (22 - 30 mmol/L) 25 Anion Gap (5 - 16) 10 BUN (9 - 20 mg/dL) 16 Creatinine (0.7 - 1.2 mg/dL) 0.6 L Estimated GFR (>60 ml/min) > 60 BUN/Creatinine Ratio (7 - 25 %) 26.7 H Glucose (65 - 99 mg/dL) 138 H Lactic Acid (0.7 - 2.1 mmol/L) 2.7 H Calcium (8.4 - 10.2 mg/dL) 8.3 L Magnesium (1.6 - 2.3 mg/dL) 1.7 Total Bilirubin (0.2 - 1.3 mg/dL) 2.0 H AST (17 - 59 U/L) 194 H ALT (21 - 72 U/L) 19 L Alkaline Phosphatase (< 127 U/L) 3980 H Troponin I (<0.11 ng/ml) < 0.01 Total Protein (6.3 - 8.2 g/dL) 6.1 L Albumin (3.5 - 5.0 g/dL) 3.6 Globulin (1.9 - 4.2 gm/dL) 2.5 Albumin/Globulin Ratio (1.1 - 2.2 %) 1.4 Hematology CBC w Diff NO MAN DIFF REQ WBC (4.8 - 10.8 /CUMM) 7.5 RBC (4.70 - 6.10 /CUMM) 3.09 L Hgb (14.0 - 18.0 G/DL) 9.7 L Hct (42 - 52 %) 28.4 L MCV (80.0 - 94.0 FL) 91.9 MCH (27.0 - 31.0 PG) 31.4 H MCHC (33.0 - 37.0 G/DL) 34.1 RDW (11.5 - 14.5 %) 21.0 H Plt Count (130 - 400 /CUMM) 240 MPV (7.4 - 10.4 FL) 6.2 L Gran % (42.2 - 75.2 %) 73.9 Lymphocytes % (20.5 - 51.1 %) 12.6 L Monocytes % (1.7 - 9.3 %) 13.0 H Eosinophils % (0 - 5 %) 0.2 Basophils % (0.0 - 2.0 %) 0.3 Absolute Granulocytes (1.4 - 6.5 /CUMM) 5.5 Absolute Lymphocytes (1.2 - 3.4 /CUMM) 0.9 L Absolute Monocytes (0.10 - 0.60 /CUMM) 1.0 H Absolute Eosinophils (0.0 - 0.7 /CUMM) 0 Absolute Basophils (0.0 - 0.2 /CUMM) 0 Imaging/Other Studies: Chest x-ray-no acute process Assessment/Plan Assessment: 1. Febrile illness-patient's had an elevated alkaline phosphatase attributed to bony metastases from his prostate cancer. Patient now has an elevated bilirubin and transaminases. Zytiga has been associated with liver function abnormalities. The patient, however, is been on this drug for quite some time without hepatitis. Prostate cancer is typically not associated with fever. Recommend- Check for flu Antibiotics have been held Strongly consider ultrasound of the right upper quadrant Follow liver function tests Repeat hepatitis B and C serologies if not performed in the last 6 months Check cortisol level 2. Metastatic prostate cancer- Continue prednisone Hold Zytiga for short term I have discussed these recommendations with the patient Recommendations: .. Consult Acknowledgment - Thank you for your consult request.
[2017-10-07 06:44] VITALS: BP 112/64
--- NOTE | 2017-10-07 08:30 | RADIOLOGY REPORT ---
EXAMINATION: XR PORTABLE CHEST CLINICAL INFORMATION: Fever without focus of infection and crackles on initial examination. Prostate cancer. COMPARISON: Chest x-ray of 10/06/2017, 09/24/2017. Chest CT of 09/09/2017. TECHNIQUE: Portable frontal view of the chest was obtained. FINDINGS: The cardiomediastinal silhouette is stable and normal. Diffuse sclerotic osseous metastasis is again noted. The lungs are hypoexpanded with bronchovascular crowding. No focal consolidation, significant pleural effusions or pneumothorax. No evidence of changes of overt pulmonary edema. IMPRESSION: Hypoexpanded lungs with bronchovascular crowding. No convincing radiographic evidence of pneumonia. No acute pulmonary process. Diffuse extensive sclerotic osseous metastases.
[2017-10-07 08:37] LABS: ABSOLUTE BASOPHIL COUNT 0 /CUMM (0.0-0.2); ABSOLUTE EOSINOPHIL COUNT 0.1 /CUMM (0.0-0.7); ABSOLUTE GRANULOCYTE CT 4.5 /CUMM (1.4-6.5); ABSOLUTE LYMPH COUNT 1.2 /CUMM (1.2-3.4); ABSOLUTE MONOCYTE COUNT 0.9 /CUMM (0.10-0.60); BASOPHIL % 0.4 % (0.0-2.0); EOSINOPHIL % 0.9 % (0-5); GRANULOCYTE % 67.7 % (42.2-75.2); HEMATOCRIT 25.1 % (42-52); MEAN CORPUSCULAR HGB 31.1 PG (27.0-31.0); MEAN CORPUSCULAR HGB CONC 33.7 G/DL (33.0-37.0); MEAN CORPUSCULAR VOLUME 92.4 FL (80.0-94.0); MEAN PLATELET VOLUME 6.3 FL (7.4-10.4); PLATELET COUNT 186 /CUMM (130-400); RBC DISTRIBUTION WIDTH 21.7 % (11.5-14.5); RED BLOOD CELL CT 2.71 /CUMM (4.70-6.10); WHITE BLOOD CELL COUNT 6.6 /CUMM (4.8-10.8)
--- NOTE | 2017-10-07 09:36 | PN- Housestaff ---
Ezra Sheppard 10/07/17 0935: Subjective Follow-up For: Sudden onset muscle weakness. Fever of unknown origin. Subjective: Continues to have some muscle weakness. Improvements in yesterday. No abdominal pain. No cough, morning phlegm production-at times bloody. No fevers or chills overnight. No nausea or vomiting. No diarrhea. Other systems reviewed and negative, except as above. Review of Systems Constitutional: Reports: see HPI. Objective Last 24 Hrs of Vital Signs/I&O Vital Signs Date Time Temp Pulse Resp B/P B/P Pulse O2 O2 Flow FiO2 Mean Ox Delivery Rate 10/08 643 97.7 94 18 112/64 96 10/07 0007 98.2 97 18 110/58 95 10/06 2356 Room Air 10/06 2309 99.2 103 14 118/56 98 Room Air 10/06 2126 101.6 105 142/67 95 Room Air 10/06 2012 102.5 10/06 193 102.5 120 18 141/78 95 Room Air Intake & Output 10/07 1600 10/07 0800 10/07 0000 Intake Total 840 Output Total 700 Balance 140 Intake, IV 600 Intake, Oral 240 Output, Urine 700 Patient 165 lb Weight Weight Reported by Patient Measurement Method Physical Exam General Appearance: Alert, Oriented X3, Cooperative Cardiovascular: Regular Rate, Normal S1, Normal S2 Lungs: Clear to Auscultation, Normal Air Movement Abdomen: Normal Bowel Sounds, Soft, No Tenderness Extremities: No Clubbing, No Cyanosis Current Medications: Current Medications Sig/Kanchan Start time Last Medication Dose Route Stop Time Status Admin Acetaminophen 0 .STK-MED ONE 10/07 2015 DC PO Acetaminophen 975 MG ONCE ONE 10/07 1999 DC 10/06 PO 10/06 Ceftriaxone Sodium 0 .STK-MED ONE 10/07 2207 DC .ROUTE Ceftriaxone Sodium 1,000 MG ONCE ONE 10/06 2144 DC 10/06 IV 10/06 Enoxaparin Sodium 40 MG DAILY 10/07 899 10/07 SC 837 Escitalopram Oxalate 10 MG DAILY 10/07 899 AC 10/07 PO 837 Gabapentin 800 MG TID 10/06 2358 10/07 PO 837 Ketorolac 0 .STK-MED ONE 10/07 2207 DC Tromethamine .ROUTE Ketorolac 30 MG ONCE ONE 10/06 2144 DC 10/06 Tromethamine IV 10/06 2145 220 Meclizine HCl 12.5 MG TID PRN 10/06 234 AC PO Melatonin 3 MG QPM 10/07 2099 AC PO Morphine Sulfate 2 MG Q4P PRN 10/06 2344 AC IV Morphine Sulfate 0 .STK-MED ONE 10/06 2206 DC .ROUTE Morphine Sulfate 4 MG ONCE ONE 10/06 2144 DC 10/06 IV 10/06 Morphine Sulfate 0 .STK-MED ONE 10/07 2015 DC .ROUTE Morphine Sulfate 4 MG ONCE ONE 10/07 1999 DC 10/06 IV 10/06 Multivitamins 1 TAB DAILY 10/07 09 AC 10/07 Therapeutic PO 0838 Oxycodone HCl 10 MG BID 10/07 09 AC 10/07 PO 0838 Oxycodone HCl 5 MG Q6 PRN 10/06 2344 AC PO Oxycodone HCl 0 .STK-MED ONE 10/07 2015 DC PO Oxycodone HCl 10 MG ONCE ONE 10/07 1999 SD 10/06 PO 10/06 Prednisone 15 MG DAILY 10/08 09 AC PO Prednisone 5 MG BID 10/07 09 DC 10/07 PO 0838 Sodium Chloride 1,000 ML Q13H 10/06 234 AC 10/07 IV 10/07 1244 0011 Sodium Chloride 1,000 ML BOLUS ONE 10/06 2144 DC 10/06 IV 10/06 Sodium Chloride 1,000 ML BOLUS ONE 10/07 1999 SD 10/06 IV 10/06 Sodium Chloride 1,000 ML BOLUS ONE 10/07 1999 SD 10/06 IV 10/06 Sodium Chloride 500 ML BOLUS ONE 10/07 1999 SD 10/06 IV 10/06 Last 24 Hrs of Lab/Lino Results Last 24 Hrs of Labs/Mics: Laboratory Tests 10/07/17 0752: Anion Gap 10, Estimated GFR > 60, BUN/Creatinine Ratio 34.0 H, Total Bilirubin 1.6 H, Direct Bilirubin 0.5 H, GGT 100 H, AST 125 H, ALT 22, Alkaline Phosphatase 3194 H, Creatine Kinase Pending, Total Protein 5.3 L, Albumin 2.9 L, TSH Pending, Cortisol AM Sample Pending, CBC w Diff NO MAN DIFF REQ, RBC 2.71 L, MCV 92.4, MCH 31.1 H, MCHC 33.7, RDW 21.7 H, MPV 6.3 L, Gran % 67.7, Lymphocytes % 18.1 L, Monocytes % 12.9 H, Eosinophils % 0.9, Basophils % 0.4, Absolute Granulocytes 4.5, Absolute Lymphocytes 1.2, Absolute Monocytes 0.9 H, Absolute Eosinophils 0.1, Absolute Basophils 0 10/06/172231: Lactic Acid 1.1 10/06/172041: Urinalysis LIGHT H, Urine Color YEL, Urine Clarity CLEAR, Urine pH 7.0, Ur Specific [place] 1.025, Urine Protein 100 H, Urine Ketones NEG, Urine Nitrite NEG, Urine Bilirubin NEG, Urine Urobilinogen 1.0, Ur Leukocyte Esterase NEG, Ur Microscopic SEDIMENT EXAMINED, Urine RBC RARE, Urine WBC RARE, Ur Epithelial Cells RARE, Hyaline Casts RARE H, Urine Mucus MOD H, Urine Hemoglobin NEG, Urine Glucose NEG 10/06/171956: Anion Gap 10, Estimated GFR > 60, BUN/Creatinine Ratio 26.7 H, Glucose 138 H, Lactic Acid 2.7 H, Calcium 8.3 L, Magnesium 1.7, Total Bilirubin 2.0 H, AST 194 H, ALT 19 L, Alkaline Phosphatase 3980 H, Troponin I < 0.01, Total Protein 6.1 L, Albumin 3.6, Globulin 2.5, Albumin/Globulin Ratio 1.4, CBC w Diff NO MAN DIFF REQ, RBC 3.09 L, MCV 91.9, MCH 31.4 H, MCHC 34.1, RDW 21.0 H , MPV 6.2 L, Gran % 73.9, Lymphocytes % 12.6 L, Monocytes % 13.0 H, Eosinophils % 0.2, Basophils % 0.3, Absolute Granulocytes 5.5, Absolute Lymphocytes 0.9 L, Absolute Monocytes 1.0 H, Absolute Eosinophils 0, Absolute Basophils 0 Microbiology 10/07 832 NASOPHARYN: Influenza Virus A & B Rapid Smear - ORD 10/06 2041 URINE ROUT: Urine Culture - RECD 10/06 2024 BLOOD: Blood Culture - RECD 10/06 2022 BLOOD: Blood Culture - RECD Assessment/Plan Assessment: 72-year-old gentleman with stage IV metastatic prostate cancer currently on abiraterone plus prednisone for last 6 months, here with worsening muscle weakness of 2 days' duration, and found to be febrile to 102.5 in the ED with no other accompanying symptoms. 1. Fever of unknown origin. Blood cultures 2, urine cultures and. Chest x- ray with no convincing radiographic evidence of pneumonia. No leukocytosis. No abdominal pain, nausea and vomiting. Liver function abnormalities noted. Will get abdominal ultrasound to rule out any pathology. He defervesced after dose of ceftriaxone in the ED. Monitor off antibiotics for now. ?Neoplastic fever. Endogenous pyrogens induce prosta E2, which may cause hypothalamus set point surge and cause pyrexia. Notably, fever is not abated with Tylenol use. Due to Prostagaldin E2 involvement, NSAIDs seem to work better. Pt did defervesce after use of Toradol in ED, granted he did get Tyelnol x 1 in ED. 2. LFT abnormalities. Normal hepatitis panel from August 2017. Elevations in AST and ALT, seen with Abiraterone, in addition to increased Bili levels. Holding Zytiga per Onc. Will fractionate T bili. GGT WNL, as accepted. Skeletal source of alkaline phosphatase elevation. Monitor liver functions closely. Will get abdominal ultrasound to rule out any pathology. He defervesced after dose of ceftriaxone in the ED. Monitor off antibiotics for now. 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 Patient has also been on steroids for more than 6 months, hence concern for steroid induced myopathy is valid. We will add on CK levels. If CK elevated, can continue steroids along with IV fluid hydration. Check TSH. Check random cortisol. DNR/DNI DVT ppx with Lovenox Regular diet Problem List: 1. Fever Pain Ratin Pain Location: Muscles and bones Pain Goal: Remain pain free Pain Plan: PRN and ATC non- narcs and narcs. Tomorrow's Labs & Rationales: CK, BEP and CBC [place] STERN,[facility] 10/07/17 1338: Attending MD Review Statement Attending Statement Attending MD Statement: examined this patient, discuss w/resident/PA/TRANSFILL TECHNICIAN, agreed w/resident/PA/TRANSFILL TECHNICIAN, discussed with family, reviewed EMR data (avail), discussed with nursing, discussed with case mgmt, reviewed images, amended to note Attending Assessment/Plan: Seen and examine independently This is a gentleman with end-stage prostate cancer with multiple metastases with recent worsening of his overall performance status with bone marrow involvement, anemia now with * Sig fever, and sepsis rule out biliary infection vs other path (zytega does cause lft elevation how ever) * Very advanced prostate ca on zytega * Severe anemia due to extensive BM mets from prostate ca * Recent Sig BPV, no evidence of stroke or malignancy, acute labrinthitis * Depression * Previous steroid use, with prior cortisol level being adequate * Left UE edema rule out vte * Abnormal MRI scan shows dural enhancement; etiology is uncertain needs out pt eval REC Watch off abx Await cultures Ultrasound of Liver and GB Ultrasound of left upper ext and if no infectious source then ultrasound of all 4 extremities Hold zytiga Cont steroid and increase prednisone to 15 mg Cont pain meds Agg bowel regimen including bid ismael, docusate and prn miralax Follow LFTs IF he spikes again will start ceftriaxone and flagyl Cont gentle ivf Will follow
--- NOTE | 2017-10-07 13:32 | Admission Certification ---
Admission Certification Certification Statement - As attending physician, I certify that at the time of - admission, based on clinical presentation, severity of - symptoms, need for further diagnostic testing and - therapeutic interventions, and risk of adverse outcomes - without in-hospital treatment, in my clinical assessment, - this patient requires an acute hospital stay for a minimum - of two nights or longer. I have also considered psychsocial - factors such as support system, advanced age, financial - issues, cognitive issues, and failed out-patient treatments, - past re-admission history, safety of patient, and lack of - compliance as applicable. Specific rationale supporting this admission is: sepsis, fever of unknown etiology and prostate ca
[2017-10-07 14:29] VITALS: BP 134/70
--- NOTE | 2017-10-07 18:10 | ULTRASOUND REPORT ---
EXAMINATION: ABDOMINAL ULTRASOUND LIMITED CLINICAL INFORMATION: Swelling. Fever. COMPARISON: 09/09/2017. TECHNIQUE: Real-time imaging of the right upper quadrant abdominal viscera. FINDINGS: PANCREAS: The visualized pancreatic head and body are normal in appearance. The remainder of the pancreas is obscured from visualization by the overlying bowel gas. LIVER: The liver is of normal size and echogenicity without focal lesions nor intrahepatic biliary ductal dilation. GALLBLADDER: Normal. The gallbladder is physiologically distended without evidence of stones, sludge, polyps, wall thickening or pericholecystic fluid. COMMON BILE DUCT: Normal in caliber measuring 0.4 cm in diameter. RIGHT KIDNEY: Several benign cysts are present. The largest measures 5.6 cm. No hydronephrosis. No renal calculi or focal parenchymal lesions. The kidney measures 12.9 cm in maximum dimension. FREE FLUID: None. IMPRESSION: Several benign right renal cysts. Otherwise, unremarkable limited right upper quadrant ultrasound.
--- NOTE | 2017-10-07 18:26 | ULTRASOUND REPORT ---
EXAMINATION: DOPPLER VENOUS ULTRASOUND UPPER EXTREMITY, LEFT CLINICAL INFORMATION: Left upper extremity swelling. COMPARISON: None. TECHNIQUE: Grayscale, Doppler and spectral analysis of the upper extremity and neck was performed. FINDINGS: There is no evidence for a deep venous thrombosis within the visualized upper extremity and neck veins. There is normal flow, compression and augmentation. IMPRESSION: Unremarkable examination. Specifically, no evidence for DVT.
--- NOTE | 2017-10-07 21:24 | ULTRASOUND REPORT ---
EXAMINATION: US TRIPLEX OF LOWER EXTREMITIES, BILATERAL CLINICAL INFORMATION: Bilateral lower extremity swelling. COMPARISON: None TECHNIQUE: Color-flow triplex imaging with spectral analysis and compression Doppler were performed on the lower extremities. FINDINGS: Respiratory variation, normal compression and augmented flow are noted throughout the lower extremities. The visualized common femoral vein, superficial femoral vein, profunda femoral vein, popliteal vein and midcalf peroneal and posterior tibial venous segments show no evidence of deep venous thrombosis. There is no Colby's cyst. IMPRESSION: No evidence of deep venous thrombosis involving the bilateral lower extremities.
--- NOTE | 2017-10-07 21:25 | ULTRASOUND REPORT ---
EXAMINATION: DOPPLER VENOUS ULTRASOUND UPPER EXTREMITY, RIGHT CLINICAL INFORMATION: Right upper extremity swelling. Concern for DVT. COMPARISON: None. TECHNIQUE: Grayscale, Doppler and spectral analysis of the upper extremity and neck was performed. FINDINGS: There is no evidence for a deep venous thrombosis within the visualized upper extremity and neck veins. There is normal flow, compression and augmentation. IMPRESSION: Unremarkable examination. Specifically, no evidence for DVT.
[2017-10-07 22:14] VITALS: BP 136/74
[2017-10-08 05:38] VITALS: BP 122/76
--- NOTE | 2017-10-08 07:29 | PN- Oncology ---
Subjective Subjective: Feeling much improved, 12 point review of systems nonspecific Objective Vital Signs and I&Os Vital Signs Date Time Temp Pulse Resp B/P B/P Pulse O2 O2 Flow FiO2 Mean Ox Delivery Rate 10/08 537 98.5 100 20 122/76 96 Room Air 10/07 2214 98.4 103 19 136/74 97 Room Air 10/07 1930 98.7 10/07 1758 99.5 10/07 1429 100.0 103 18 134/70 95 Room Air Intake & Output 10/08 0810/08 0000 10/07 1600 10/07 0810/07 0000 10/06 1600 Intake Total 600 960 840 Output Total 350 750 500 700 Balance -350 -150 460 140 Intake, IV 240 600 Intake, Oral 600 720 240 Output, Urine 350 750 500 700 Patient 165 lb Weight Weight Reported by Patient Measurement Method Gen.: in NAD ENT: Sclera anicteric Chest: Normal respiratory effort, decreased breath sounds Cor: RRR, no extra sounds Abdomen: Soft, bowel sounds present, no tenderness, no rebound Extremities: Without clubbing, cyanosis, or asymmetric edema Neurology: Alert and oriented 3, no gross deficit Current Medications: Current Medications Sig/Kanchan Start time Last Medication Dose Route Stop Time Status Admin Enoxaparin Sodium 40 MG DAILY 10/07 09 AC 10/07 SC 0838 Escitalopram Oxalate 10 MG DAILY 10/07 09 AC 10/07 PO 0838 Gabapentin 800 MG TID 10/06 2359 AC 10/07 PO 2208 Meclizine HCl 12.5 MG TID PRN 10/06 234 AC PO Melatonin 3 MG QPM 10/07 2100 AC 10/07 PO 2208 Morphine Sulfate 2 MG Q4P PRN 10/06 2345 AC IV Multivitamins 1 TAB DAILY 10/07 09 AC 10/07 Therapeutic PO 0838 Oxycodone HCl 10 MG BID 10/07 09 AC 10/07 PO 2208 Oxycodone HCl 5 MG Q6 PRN 10/06 234 AC 10/07 PO 1921 Patient Medication 1 ED ONE ONE 10/07 1545 DC Teaching ED 10/07 1546 Prednisone 15 MG DAILY 10/08 09 AC PO Prednisone 5 MG BID 10/07 0900 DC 10/07 PO 0838 Sodium Chloride 1,000 ML Q13H 10/06 2345 DC 10/07 IV 10/07 1244 0011 Results Last 24 Hours of Lab Results: Laboratory Tests 10/07 0752 Chemistry Sodium (137 - 145 mmol/L) 137 Potassium (3.5 - 5.1 mmol/L) 4.4 Chloride (98 - 107 mmol/L) 107 Carbon Dioxide (22 - 30 mmol/L) 21 L Anion Gap (5 - 16) 10 BUN (9 - 20 mg/dL) 17 Creatinine (0.7 - 1.2 mg/dL) 0.5 L Estimated GFR (>60 ml/min) > 60 BUN/Creatinine Ratio (7 - 25 %) 34.0 H Total Bilirubin (0.2 - 1.3 mg/dL) 1.6 H Direct Bilirubin (< 0.4 mg/dL) 0.5 H GGT (15 - 73 U/L) 100 H AST (17 - 59 U/L) 125 H ALT (21 - 72 U/L) 22 Alkaline Phosphatase (< 127 U/L) 3194 H Creatine Kinase (55 - 170 U/L) 323 H Total Protein (6.3 - 8.2 g/dL) 5.3 L Albumin (3.5 - 5.0 g/dL) 2.9 L TSH (0.270 - 4.200 uIU/mL) 1.140 Cortisol AM Sample (4.46 - 22.7 ug/dL) 10.4 Hematology CBC w Diff NO MAN DIFF REQ WBC (4.8 - 10.8 /CUMM) 6.6 RBC (4.70 - 6.10 /CUMM) 2.71 L Hgb (14.0 - 18.0 G/DL) 8.4 L Hct (42 - 52 %) 25.1 L MCV (80.0 - 94.0 FL) 92.4 MCH (27.0 - 31.0 PG) 31.1 H MCHC (33.0 - 37.0 G/DL) 33.7 RDW (11.5 - 14.5 %) 21.7 H Plt Count (130 - 400 /CUMM) 186 MPV (7.4 - 10.4 FL) 6.3 L Gran % (42.2 - 75.2 %) 67.7 Lymphocytes % (20.5 - 51.1 %) 18.1 L Monocytes % (1.7 - 9.3 %) 12.9 H Eosinophils % (0 - 5 %) 0.9 Basophils % (0.0 - 2.0 %) 0.4 Absolute Granulocytes (1.4 - 6.5 /CUMM) 4.5 Absolute Lymphocytes (1.2 - 3.4 /CUMM) 1.2 Absolute Monocytes (0.10 - 0.60 /CUMM) 0.9 H Absolute Eosinophils (0.0 - 0.7 /CUMM) 0.1 Absolute Basophils (0.0 - 0.2 /CUMM) 0 Recent Imaging Studies: Abdominal ultrasound-no acute processes Venous Dopplers-negative for DVT Assessment/Plan Assessment/Recommendations: 1. Febrile episode-spontaneous improvement ???, Improving liver function tests , no evidence of metastatic cancer in the liver or active gallbladder disease 2. Metastatic prostate cancer-medically stable Recommend-patient to resume Zytiga when discharged, would not increased prednisone dose
[2017-10-08 08:18] LABS: ABSOLUTE BASOPHIL COUNT 0 /CUMM (0.0-0.2); ABSOLUTE EOSINOPHIL COUNT 0.1 /CUMM (0.0-0.7); ABSOLUTE GRANULOCYTE CT 3.7 /CUMM (1.4-6.5); ABSOLUTE LYMPH COUNT 0.8 /CUMM (1.2-3.4); ABSOLUTE MONOCYTE COUNT 0.8 /CUMM (0.10-0.60); BASOPHIL % 0.3 % (0.0-2.0); GRANULOCYTE % 69.3 % (42.2-75.2); HEMATOCRIT 21.8 % (42-52); MEAN CORPUSCULAR HGB 31.5 PG (27.0-31.0); MEAN CORPUSCULAR HGB CONC 34.2 G/DL (33.0-37.0); MEAN CORPUSCULAR VOLUME 92.2 FL (80.0-94.0); MEAN PLATELET VOLUME 6.4 FL (7.4-10.4); PLATELET COUNT 181 /CUMM (130-400); RBC DISTRIBUTION WIDTH 21.6 % (11.5-14.5); RED BLOOD CELL CT 2.36 /CUMM (4.70-6.10); WHITE BLOOD CELL COUNT 5.3 /CUMM (4.8-10.8)
--- NOTE | 2017-10-08 08:46 | PN- Housestaff ---
Ezra Sheppard 10/08/17 0845: Subjective Follow-up For: Muscle weakness. Fever of unknown origin. Subjective: Offers no complaints, notes overall improvement. Review of Systems Constitutional: Reports: see HPI. Objective Last 24 Hrs of Vital Signs/I&O Vital Signs Date Time Temp Pulse Resp B/P B/P Pulse O2 O2 Flow FiO2 Mean Ox Delivery Rate 10/08 1403 98.8 101 18 122/60 95 Room Air 10/08 0538 98.5 100 20 122/76 96 Room Air 10/07 2214 98.4 103 19 136/74 97 Room Air 10/07 1930 98.7 10/07 1758 99.5 Intake & Output 10/08 1600 10/08 0800 10/08 0000 Intake Total 600 Output Total 350 750 Balance -350 -150 Intake, Oral 600 Output, Urine 350 750 Physical Exam General Appearance: Alert, Oriented X3, Cooperative Cardiovascular: Regular Rate, Normal S1, Normal S2 Lungs: Clear to Auscultation, Normal Air Movement Abdomen: Normal Bowel Sounds, Soft Extremities: No Clubbing, No Cyanosis, No Edema Current Medications: Current Medications Sig/Kanchan Start time Last Medication Dose Route Stop Time Status Admin Enoxaparin Sodium 40 MG DAILY 10/07 899 AC 10/08 SC 25 Escitalopram Oxalate 10 MG DAILY 10/07 899 AC 10/08 PO 0925 Gabapentin 800 MG TID 10/06 2359 AC 10/08 PO 1322 Meclizine HCl 12.5 MG TID PRN 10/06 234 AC PO Melatonin 3 MG QPM 10/07 2100 AC 10/07 PO 2208 Morphine Sulfate 2 MG Q4P PRN 10/06 2345 AC IV Multivitamins 1 TAB DAILY 10/07 899 AC 10/08 Therapeutic PO 0925 Oxycodone HCl 10 MG BID 10/07 899 AC 10/08 PO 0925 Oxycodone HCl 5 MG Q6 PRN 10/06 2345 AC 10/07 PO 1921 Patient Medication 1 ED ONE ONE 10/08 09 [place] Teaching ED 10/08 0901 Patient Medication 1 ED ONE ONE 10/07 1545 WA Teaching ED 10/07 1546 Polyethylene Glycol 17 GM DAILY 10/08 899 AC 10/08 PO 0925 Prednisone 15 MG DAILY 10/08 899 AC 10/08 PO 0925 Senna/Docusate Sodium 1 TAB BID 10/08 0900 AC 10/08 PO 0926 Last 24 Hrs of Lab/Lino Results Last 24 Hrs of Labs/Mics: Laboratory Tests 10/08/17 0701: Anion Gap 6, Estimated GFR > 60, BUN/Creatinine Ratio 42.5 H, Total Bilirubin 1.6 H, Direct Bilirubin 0.5 H, AST 65 H, ALT 24, Alkaline Phosphatase 2476 H , Total Protein 4.8 L, Albumin 2.6 L, CBC w Diff NO MAN DIFF REQ, RBC 2.36 L, MCV 92.2, MCH 31.5 H, MCHC 34.2, RDW 21.6 H, MPV 6.4 L, Gran % 69.3, Lymphocytes % 14.8 L, Monocytes % 14.6 H, Eosinophils % 1.0, Basophils % 0.3, Absolute Granulocytes 3.7, Absolute Lymphocytes 0.8 L, Absolute Monocytes 0.8 H, Absolute Eosinophils 0.1, Absolute Basophils 0 Microbiology 10/08 729 LOWER RESP: Respiratory Culture - CAN Cancelled: NUMBER OF SQUAMOUS CELLS INDICATES POOR QUALITY SPECIMEN 10/08 729 LOWER RESP: Gram Stain - CAN Cancelled: NUMBER OF SQUAMOUS CELLS INDICATES POOR QUALITY SPECIMEN Assessment/Plan Assessment: 72-year-old gentleman with stage IV metastatic prostate cancer currently on abiraterone plus prednisone for last 6 months, here with worsening muscle weakness of 2 days' duration, and found to be febrile to 102.5 in the ED with no other accompanying symptoms. Afebrile since. 1. Fever of unknown origin. Blood cultures 2, urine cultures negative. Chest x-ray with no convincing radiographic evidence of pneumonia. No leukocytosis. No abdominal pain, nausea and vomiting. Liver function abnormalities noted, will trend. 2. LFT abnormalities. Normal hepatitis panel from August 2017. Elevations in AST and ALT, seen with Abiraterone, in addition to increased Bili levels. Will fractionate T bili. Follow up with onc upon dc regarding LFTs, continue Zytiga upon DC. 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 Stay well hydrated. Anemia - Transfuse 1 PRBC. DC home with close follow up with Onc. CBC and CMP in 1 week. DNR/DNI DVT ppx with Lovenox Regular diet Problem List: 1. Symptomatic anemia Pain Ratin Pain Location: None Pain Goal: Remain pain free Pain Plan: PRN Tomorrow's Labs & Rationales: Not needed. [place] STERN,Conner 10/08/17 1420: Attending MD Review Statement Attending Statement Attending MD Statement: examined this patient, discuss w/resident/PA/HARDBOARD PRESS OPERATOR, agreed w/resident/PA/HARDBOARD PRESS OPERATOR, discussed with family, reviewed EMR data (avail), discussed with nursing, discussed with case mgmt, reviewed images, amended to note Attending Assessment/Plan: INGA Chest mild crackles abd soft Trace edema This is a gentleman with end-stage prostate cancer with multiple metastases with recent worsening of his overall performance status with bone marrow involvement, anemia now with * Resolved Sig fever, prob non infectious fever will follow * Very advanced prostate ca on zytega * Severe anemia due to extensive BM mets from prostate ca, needs transfusion * Recent Sig BPV, no evidence of stroke or malignancy, acute labrinthitis * Depression * Previous steroid use, with prior cortisol level being adequate * Left UE edema rule no vte * Abnormal MRI scan shows dural enhancement; etiology is uncertain needs out pt eval REC Watch off abx, ok to dc PRBC one unit REsume out pt meds and reduce steriod to baseline dose Resume chemo per ONc Agg bowel regimen including bid ismael, docusate and prn miralax Follow LFTs as out pt
--- NOTE | 2017-10-08 10:14 | Patient Discharge Instructions ---
Discharge Instructions General Discharge Information You were seen/treated for: Liver function abnormalities Muscle weakness Watch for these problems: Low blood pressure Fast heart rate Blood in urine . Blood in stools Special Instructions: Please follow up with Dr. Mead as an outpatient. Please have CBC and CMP checked next week, and results CBC to Dr. Mead. Please follow-up with Dr. Vinson as an outpatient. If you experience lightheadedness, dizziness, observe low blood pressures or fast heart rate, noticed blood in stools or urine, please call PCP office or go to the ED. Maintain good hydration status. Acute Coronary Syndrome Inclusion Criteria At DC or during hospital stay patient has or had the following: ACS DIAGNOSIS No Discharge Core Measures Meds if any: Prescribed or Continued at Discharge Meds if any: NOT Prescribed or Continued at Discharge Congestive Heart Failure Inclusion Criteria At DC or during hospital stay patient has or had the following: CHF DIAGNOSIS No Discharge Core Measures Meds if any: Prescribed or Continued at Discharge Meds if any: NOT Prescribed or Continued at Discharge Cerebrovascular accident Inclusion Criteria At DC or during hospital stay patient has or had the following: CVA/TIA Diagnosis No Discharge Core Measures Meds if any: Prescribed or Continued at Discharge Meds if any: NOT Prescribed or Continued at Discharge Venous thromboembolism Inclusion Criteria VTE Diagnosis No VTE Type NONE VTE Confirmed by (Test) NONE Discharge Core Measures - Per Current guidelines, there needs to be overlap - treatment for the first 5 days of Warfarin therapy. - If discharged on Warfarin prior to 5 days of - overlap therapy, the patient will need to be - assessed for post discharge needs including - *Post discharge parental anticoagulation - *Warfarin and/or parental anticoagulation education - *Follow up date to check INR post discharge At least 5 days overlap therapy as Inpatient No Meds if any: Prescribed or Continued at Discharge Note: Overlap Therapy is Warfarin and Anticoagulant Meds if any: NOT Prescribed or Continued at Discharge
[2017-10-08] MEDS ORDERED: ATACAND16 M1 PO (10:53)
[2017-10-08 14:03] VITALS: BP 122/60
== END 2017-10-08 17:22 | disposition home health service (06) | DRG 543 ==
LOC: ERH 19:19 → 2NB 22:06 → ERHI 22:06 → ENRESERV 22:28 → 2NB 23:59 → ENPENDDIS 10-08 11:02 → ENTRNSPT 10-08 17:08 → EDTRNSPTSTS 10-08 17:13 → EDTRNSPT 10-08 17:13 → 2NB 10-08 17:22 → CMPTRNSPT 10-08 17:28
PROVIDERS: Emergency Medicine; Internal Medicine Hematology & Oncology; Preventive Medicine Public Health & General Preventive Medicine
PROC: 30233N1 Transfusion of Nonautologous Red Blood Cells into Peripheral Vein, Percutaneous Approach (ICD-10-PCS; principal; 2017-10-08)
DX: C79.51 Secondary malignant neoplasm of bone (principal); E87.2 Acidosis; G62.9 Polyneuropathy, unspecified; C61 Malignant neoplasm of prostate; D63.8 Anemia in other chronic diseases classified elsewhere; F32.9 Major depressive disorder, single episode, unspecified; R50.9 Fever, unspecified; C79.52 Secondary malignant neoplasm of bone marrow; G89.3 Neoplasm related pain (acute) (chronic); M63.8 Disorders of muscle in diseases classified elsewhere; Z66 Do not resuscitate; Z88.0 Allergy status to penicillin
CPT/HCPCS: 2NBP; 36415; 36592; 71045; 81001; 82436; 86920; 87040; 87070; 87086; 87804; 87804-59; 93970; 96361; 96374; 96375; 96376; 97110-GO; 97116-GO; 97161-GP; 97530-GO; 99291; J0696; J1650; J1885; J7040; J7512; P9016